=== PATIENT | female | born 1940 | race Caucasian/White ===

== ENCOUNTER 2016-04-10 17:15 | Inpatient (IN) | payer OTHER, MEDICARE, MEDICAID ==
[~2016-04-10] VITALS: Ht 152.4 cm; Wt 96.3 kg
[2016-04-10 17:56] VITALS: BP 157/80; PULSE 80; RESP 20; TEMP 98.1; O2SAT 98
[2016-04-10 18:25] VITALS: BP 130/55; PULSE 69; RESP 22; O2SAT 97
[2016-04-10 18:27] LABS: AUTOMATED NEUTROPHIL # 8.2 TH/MM3 (1.8-7.7); BASOPHIL # 0.1 TH/MM3 (0-0.2); BASOPHIL % 0.7 % (0.0-2.0); EOSINOPHIL # 0.3 TH/MM3 (0-0.4); EOSINOPHIL % 2.9 % (0.0-4.0); HEMATOCRIT 33.9 % (35.0-46.0); HEMO FLAGS DIFF FINAL; LYMPH % 18.6 % (9.0-44.0); LYMPHOCYTE # 2.1 TH/MM3 (1.0-4.8); MEAN CELL VOLUME 84.2 FL (80.0-100.0); MEAN CORPUSCULAR HEMOGLOBIN 28.5 PG (27.0-34.0); MEAN CORPUSCULAR HGB CONC 33.8 % (32.0-36.0); MONO % 5.6 % (0.0-8.0); NEUT % 72.2 % (16.0-70.0); PLATELET COUNT 312 TH/MM3 (150-450); RED BLOOD COUNT 4.02 MIL/MM3 (4.00-5.30); RED CELL DISTRIBUTION WIDTH 15.8 % (11.6-17.2); WHITE BLOOD COUNT 11.3 TH/MM3 (4.0-11.0)
[2016-04-10 18:38] LABS: AMPHETAMINE, URINE NEG (NEG); BARBITURATES, URINE NEG (NEG); COCAINE, URINE NEG (NEG)
--- NOTE | 2016-04-10 18:39 | PD ---
HPI Chief Complaint: Psychiatric Symptoms Time Seen by Provider: 18:24 Travel History International Travel<30 days: No Contact w/Intl Traveler<30days: No Traveled to known affect area: No History of Present Illness HPI Patient is a 75-year-old female who presents to emergency room for psychiatric evaluation. Patient reports that her niece helps to care for her as well as her brother. Reports that her niece has been having a hard time taking care of both her brother as well as herself and suggested going to a retirement today. As per patient, she made a suicidal comment to her brother today as she does not want to go to a retirement. Pt reports that she made the suicidal comment but didn't mean it and reports that she would never hurt herself. Carter act initiated by [facility]. [facility] Past Medical History Diabetes: Yes Hypertension: Yes Past Surgical History Cholecystectomy: Yes Other Surgery: Yes (finger tip amputation) Social History Alcohol Use: No Tobacco Use: No (former smoker) Substance Use: No Allergies-Medications (Allergen,Severity, Reaction): Coded Allergies: Morphine (Verified Allergy, Intermediate, 04/10/16) Penicillin (Verified Allergy, Intermediate, HIVES, 04/10/16) Reported Meds & Prescriptions Reported Meds & Active Scripts Active Active Prescriptions or Reported Medications Unobtainable Review of Systems General / Constitutional: No: Fever Eyes: No: Visual changes HENT: No: Headaches Cardiovascular: No: Chest Pain or Discomfort Respiratory: No: Shortness of Breath Gastrointestinal: No: Abdominal Pain Genitourinary: No: Dysuria Musculoskeletal: No: Pain Skin: No Rash Neurologic: No: Weakness Psychiatric: Positive: Anxiety, Depression Endocrine: No: Polydipsia Hematologic/Lymphatic: No: Easy Bruising Physical Exam Narrative GENERAL: No acute distress, nontoxic SKIN: Warm and dry. HEAD: Atraumatic. Normocephalic. EYES: Pupils equal and round. No scleral icterus. No injection or drainage. ENT: No nasal bleeding or discharge. Mucous membranes pink and moist. NECK: Trachea midline. No JVD. CARDIOVASCULAR: Regular rate and rhythm. No murmur appreciated. RESPIRATORY: No accessory muscle use. Clear to auscultation. Breath sounds equal bilaterally. GASTROINTESTINAL: Abdomen soft, non-tender, nondistended. Hepatic and splenic margins not palpable. MUSCULOSKELETAL: No obvious deformities. No clubbing. No cyanosis. No edema. NEUROLOGICAL: Awake and alert. No obvious cranial nerve deficits. Motor grossly within normal limits. Normal speech. PSYCHIATRIC: Patient anxious, patient upset, patient crying on evaluation, denies SI or HI at this time Data Data Last Documented VS Vital Signs Date Time Temp Pulse Resp B/P Pulse Ox O2 Delivery O2 Flow Rate FiO2 04/10/16 18:25 73 22 04/10/16 18:25 130/55 97 Room Air 04/10/16 17:56 98.1 Orders Complete Blood Count With Diff (04/10/16 17:47) Comprehensive Metabolic Panel (04/10/16 17:47) Drug Screen, Random Urine (04/10/16 17:47) Alcohol (Ethanol) (04/10/16 17:47) Psych Screen (04/10/16 17:47) Labs Laboratory Tests Test 04/10/16 04/10/16 17:50 18:00 Urine Opiates Screen NEG Urine Barbiturates Screen NEG Urine Amphetamines Screen NEG Urine Benzodiazepines Screen NEG Urine Cocaine Screen NEG Urine Cannabinoids Screen NEG White Blood Count 11.3 TH/MM3 Red Blood Count 4.02 MIL/MM3 Hemoglobin 11.5 GM/DL Hematocrit 33.9 % Mean Corpuscular Volume 84.2 FL Mean Corpuscular Hemoglobin 28.5 PG Mean Corpuscular Hemoglobin 33.8 % Concent Red Cell Distribution Width 15.8 % Platelet Count 312 TH/MM3 Mean Platelet Volume 8.0 FL Neutrophils (%) (Auto) 72.2 % Lymphocytes (%) (Auto) 18.6 % Monocytes (%) (Auto) 5.6 % Eosinophils (%) (Auto) 2.9 % Basophils (%) (Auto) 0.7 % Neutrophils # (Auto) 8.2 TH/MM3 Lymphocytes # (Auto) 2.1 TH/MM3 Monocytes # (Auto) 0.6 TH/MM3 Eosinophils # (Auto) 0.3 TH/MM3 Basophils # (Auto) 0.1 TH/MM3 CBC Comment DIFF FINAL Differential Comment Sodium Level 138 MEQ/L Potassium Level 4.0 MEQ/L Chloride Level 102 MEQ/L Carbon Dioxide Level 29.3 MEQ/L Anion Gap 7 MEQ/L Blood Urea Nitrogen 18 MG/DL Creatinine 0.81 MG/DL Estimat Glomerular Filtration 69 ML/MIN Rate Random Glucose 215 MG/DL Calcium Level 8.9 MG/DL Total Bilirubin 0.5 MG/DL Aspartate Amino Transf 13 U/L (AST/SGOT) Alanine Aminotransferase 19 U/L (ALT/SGPT) Alkaline Phosphatase 115 U/L Total Protein 7.5 GM/DL Albumin 3.9 GM/DL Ethyl Alcohol Level LESS THAN 3 MG/DL MDM Medical Decision Making Medical Screen Exam Complete: Yes Emergency Medical Condition: Yes Interpretation(s) Vital Signs Date Time Temp Pulse Resp B/P Pulse Ox O2 Delivery O2 Flow Rate FiO2 04/10/16 18:25 73 22 04/10/16 18:25 69 22 130/55 97 Room Air 04/10/16 17:56 98.1 80 20 157/80 98 Differential Diagnosis Suicidal ideations, anxiety attack, depression Narrative Course 75-year-old female who presents to emergency room after Carter act initiated by [facility]. Psychiatric screening labs ordered, patient will require psychiatric evaluation Patient medically cleared for psychiatric evaluation Scripts Unable to Obtain Active Prescriptions or Reported Meds Danyell Momin DO Apr 10, 2016 18:39
[2016-04-10 18:48] LABS: ANION GAP 7 MEQ/L (5-15)
[2016-04-10 18:52] LABS: ALKALINE PHOSPHATASE 115 U/L (45-117); ALT (GPT) 19 U/L (10-53); AST (GOT) 13 U/L (15-37); BICARBONATE 29.3 MEQ/L (21.0-32.0); BLOOD UREA NITROGEN 18 MG/DL (7-18); CHLORIDE 102 MEQ/L (98-107); GLOMERULAR FILTRATION RATE 69 ML/MIN (>89); SODIUM (NA) 138 MEQ/L (136-145); TOTAL BILIRUBIN ADULT 0.5 MG/DL (0.2-1.0)
[2016-04-10] MEDS ORDERED: LORazepam 2 MG/ML VIAL IV PUSH ONE (19:30)
[2016-04-10 19:31] VITALS: BP 141/69; PULSE 81; RESP 18; O2SAT 99
[2016-04-10 21:22] VITALS: BP 158/70; PULSE 94; RESP 22; O2SAT 97
[2016-04-10] MEDS ORDERED: HYDR-3649 (21:41)
[2016-04-10] MEDS ORDERED: TRAZ50TA12 PO (21:41)
[2016-04-10] MEDS ORDERED: ATEN25TA PO (21:41)
[2016-04-10] MEDS ORDERED: FURO20TA PO (21:41)
[2016-04-10] MEDS ORDERED: GABA600T PO (21:41)
[2016-04-10] MEDS ORDERED: SERT-129 PO (21:41)
[2016-04-10] MEDS ORDERED: ATOR20TA15 PO (21:41)
[2016-04-10] MEDS ORDERED: LEVEMIR SQ (21:41)
[2016-04-10] MEDS ORDERED: LISI-515 PO (21:41)
[2016-04-10] MEDS ORDERED: PRAD150C PO (21:41)
[2016-04-10] MEDS ORDERED: HYDR-3516 PO (21:41)
[2016-04-10] MEDS ORDERED: ISOS30TA3 PO (21:41)
[2016-04-10] MEDS ORDERED: FENT25DI T-DERMAL (21:41)
[2016-04-10] MEDS ORDERED: PANT40TA3 PO (21:41)
[2016-04-10] MEDS ORDERED: CLON0.5T PO (21:41)
[2016-04-10] MEDS ORDERED: CLIN1CAP5 PO (21:41)
[2016-04-10] MEDS ORDERED: HUMA100I3 SQ (21:41)
[2016-04-10] MEDS ORDERED: ESCI10TA PO (21:41)
[2016-04-10] MEDS ORDERED: ACETAMINOPHEN/HYDROcodone 325 MG/5 MG TAB PO ONE (23:30)
[2016-04-11] MEDS ORDERED: traZODone HCL 50 MG TAB PO ONE (02:00)
[2016-04-11 02:26] VITALS: BP 166/73; PULSE 78; RESP 16; TEMP 98.1; O2SAT 95
[2016-04-11 04:54] VITALS: PULSE 76; RESP 16; O2SAT 95
[2016-04-11] MEDS ORDERED: GABAPENTIN 300 MG CAP PO STA (05:01)
[2016-04-11] MEDS ORDERED: clonazePAM 0.5 MG TAB PO ONE (05:15)
[2016-04-11 08:57] VITALS: BP 153/67; PULSE 76; RESP 16; O2SAT 100
--- NOTE | 2016-04-11 09:03 | HHI.HP ---
Provisional Diagnosis Admission Date [place] I. Adjustment disorder with mixed emotions and disturbance of conduct [place] II. Deferred [place] III. HTN, DM [place] IV. Family conflicts [place] V. 40 Certification of Person's Competence To Provide Express and Informed Consent I have personally examined Lolita Laboy , a person being served at [facility] on, Apr 11, 2016 08:45. Express and informed consent means consent voluntarily given in writing, by a competent person, after sufficient explanation and disclosure of the subject matter involved to enable the person to make a knowing and willful decision without any element of force, fraud, deceit, duress, or other form of constraint or coercion. This person is 18 years of age or older, is not now known to be incompetent to consent to treatment with a guardian advocate, and does not have a health care surrogate or proxy currently making medical treatment decisions. I have found this person to be one of the following: [] Competent to provide express and informed consent, as defined above, for voluntary admission to this facility and is competent to provide express and informed consent for treatment. He/she has the consistent capacity to make well reasoned, willful, and knowing decisions concerning his or her medical or mental health treatment. The person fully and consistently understands the purpose of the admission for examination/placement and is fully capable of personally exercising all rights assured under [place] [] Incompetent to provide express and informed consent to voluntary admission, and this is incompetent to provide express and informed consent to treatment. The person must be transferred to involuntary status and a petition for a guardian advocate filed with the Circuit Court. [X] Refusing to provide express and informed consent to voluntary admission but is competent to provide express and informed consent for treatment. The person must be discharged or transferred to involuntary status. Form shall be completed within 24 hours of a person's arrival at the receiving facility and filed in the clinical record of each person: 1. Admitted on a voluntary basis 2. Permitted to provide express and informed consent to his/her own treatment 3. Allowed to transfer from involuntary to voluntary status 4. Prior to permitting a person to consent to his or her own treatment after having been previously found incompetent to consent to treatment. History of Present Illness Capacity: Has Capacity HPI The patient is a 75-year-old woman, domiciled with her brother in [place], , without psychiatric history of anxiety and depression, 1 previous psychiatric hospitalization in [place], no previous suicide attempts, medical history of diabetes and hypertension, who presents to emergency room for psychiatric evaluation. As per ER notes: "Patient reports that her niece helps to care for her as well as her brother. Reports that her niece has been having a hard time taking care of both her brother as well as herself and suggested going to a correction today. As per patient, she made a suicidal comment to her brother today as she does not want to go to a correction. Pt reports that she made the suicidal comment but didn't mean it and reports that she would never hurt herself. Carter act initiated by [facility]". Chart was reviewed, no collateral information available at this moment , case was discussed with nurse in charge and ER staff, case was seen in the A Pod. On evaluation patient was found agitated, mood dysregulated, persistently crying, poorly cooperative, she is claiming to be discharged and sent back home. She says that she wants to go back home with her brother. She does not want to be in the hospital, she says that she doesn't want to be sent to a correction. Patient states repetitively that if is no discharge is going to kill herself and if she is sent to a correction she is going to hang herself. Patient reported that she is extremely depressed, she doesn't have any desire to live. Patient is oriented 3, but cognitive tests is limited due to lack of cooperation. As per conversation with nursing charge, the brother of the patient had a stroke and is hospitalized here in [place], and apparently doesn' t have a good prognosis. Her Niece brought the patient to the hospital because she is is spending most of her time taking care of her father and cannot take care of her. When she explained to the patient that she had to go to a correction the patient told her that she will kill herself if she does that. Review of Systems Constitutional: DENIES: Diaphoretic episodes, Fatigue, Fever, Weight gain, Weight loss, Chills, Dizziness, Change in appetite, Night Sweats Endocrine: DENIES: Abnorml menstrual pattern, Heat/cold intolerance, Polydipsia , Polyuria, Polyphagia Respiratory: DENIES: Apneas, Cough, Snoring, Wheezing, Hemoptysis, Sputum production, Shortness of breath Cardiovascular: DENIES: Chest pain, Palpitations, Syncope, Dyspnea on Exertion , PND, Lower Extremity Edema, Orthopnea, Claudication Gastrointestinal: DENIES: Abdominal pain, Black stools, Bloody stools, Constipation, Diarrhea, Nausea, Vomiting, Difficulty Swallowing, Anorexia Musculoskeletal: DENIES: Joint pain, Muscle aches, Stiffness, Joint Swelling, Back pain, Neck pain Integumentary: DENIES: Abnormal pigmentation, Pruritus, Rash, Nail changes, Breast masses, Breast skin changes, Nipple discharge Hematologic/lymphatic: DENIES: Bruising, Lymphadenopathy Immunologic/allergic: DENIES: Eczema, Urticaria Neurologic: DENIES: Abnormal gait, Headache, Localized weakness, Paresthesias, Seizures, Speech Problems, Tremor, Poor Balance Psychiatric: COMPLAINS OF: Depression, Suicidal Ideation Past Psych History Violence risk - self (6 mos) Elevated risk Substance Abuse History Drugs/Alcohol past 12 months Patient denies the use of alcohol and drugs Past Family Social History Coded Allergies: Morphine (Verified Allergy, Intermediate, 04/10/16) Penicillin (Verified Allergy, Intermediate, HIVES, 04/10/16) Reported Medications Fentanyl Patch 72 HR 25 Mcg/Hr Patch25 Mcg T-DERMAL Q72H #10 PATCH Ref 0 04/10/16 Insulin Lispro (Human) Inj (Humalog Kwikpen Pen Inj)300 Unit/3 Ml Pen10 Units SQ DIRECTED Ref 0 04/10/16 Insulin Detemir Inj (Levemir Inj)1,000 unit/ 10 ML Vial30 Units SQ HS Ref 0 Do not mix with any other Insulin. 04/10/16 Atenolol 25 Mg Tab25 Mg PO DAILY #30 TAB 04/10/16 Clindamycin 150 Mg [id number] Mg PO TID Ref 0 04/10/16 Hydrocodone-Acetaminophen 5-325 mg Tab1 Tab PO Q12HR PRN (PAIN) #30 TAB Ref 0 04/10/16 Hydrocodone-Acetaminophen (Hydrocodone-AC)2.5-325 Mg Tab5 04/10/16 Escitalopram 10 Mg Tab10 Mg PO DAILY #30 TAB Ref 0 04/10/16 Trazodone 50 Mg Tab50 Mg PO HS #30 TAB Ref 0 04/10/16 Clonazepam 0.5 Mg Tab0.5 Mg PO TID #90 TAB Ref 0 04/10/16 Gabapentin 600 Mg [id number] Mg PO HS #30 TAB Ref 0 04/10/16 Atorvastatin 20 Mg Tab20 Mg PO HS #30 TAB Ref 0 04/10/16 Lisinopril 20 Mg Tab20 Mg PO DAILY #30 TAB Ref 0 04/10/16 Furosemide 20 Mg Tab20 Mg PO DAILY #30 TAB Ref 0 04/10/16 Isosorbide Mononitrate ER 30 Mg Taber30 Mg PO DAILY #30 TAB Ref 0 04/10/16 Dabigatran (Pradaxa)150 Mg [id number] Mg PO DAILY #60 CAP Ref 0 04/10/16 Pantoprazole 40 Mg Tab40 Mg PO DAILY #30 TAB Ref 0 04/10/16 Sertraline 100 Mg [id number] Mg PO DAILY #30 TAB Ref 0 04/10/16 Family History Patient denies family psychiatric history Social History Patient was born and raised in [place], she has been living in [place] for about 5 months, she lives with her brother in [place], she is , her highest level of education is high school Physical Exam Vital Signs Vital Signs Date Time Temp Pulse Resp B/P Pulse Ox O2 Delivery O2 Flow Rate FiO2 04/11/16 04:54 76 16 95 Room Air 04/11/16 02:26 98.1 166/73 Mental Status Examination Speech: Hesitant Orientation: x3 Memory: Unremarkable Thought Process: Logical, Goal Directed, Linear Thought Content: Unremarkable Hallucination Type: None Attention and Concentration: Abnormal Suicidal Ideation: Yes Previous Suicide Attempts: No Homicidal Ideation: No Previous Homicide Attempts: No Insight: Poor Judgement: Poor Affect: Irritable, Sad Mood: Sad Motor Activity: Normal gait Assessment & Plan Problem List: (1) Adjustment disorder with mixed anxiety and depressed mood Assessment & Plan: The patient is a 75 years old woman with psychiatric history of anxiety and depression, 1 previous hospitalization in [place], no previous suicidal attempts On psychiatric evaluation the patient presents severe mood dysregulation, agitation, disorganized behavior and thoughts, perseverant thoughts, hopelessness, helplessness, suicidal ideation with a plan of hanging herself or overdosing in the context of family conflicts, acute stroke of her brother, and no wanting to go to a correction. No gross impairment in cognition observed during this evaluation. Patient had to be medicated in they are to be calmed down No collateral information is available at this moment, patient is not cooperating a lot with the psychiatric ekg manager No protective factors are identified at this moment, and many elevated risk factors of suicidality are present For the safety of the patient and for stabilization of her mood and behavior, she needs to be hospitalized to psychiatry touch up worker intervention for collateral information and discharge coordination is needed Will medicated with Ativan 2 mg IM to help the patient to calm down and to transfer her to psychiatry Transfer to psychiatry once medically clear Brief supportive psychotherapy provided With place a consult for a psychiatric second opinion and also for hospitalist to manage her medical conditions. ICD Code: F43.23 Assessment & Plan Estimated LOS: days Olivier Dumont MD Apr 11, 2016 09:03
[2016-04-11] MEDS ORDERED: LORazepam 1 MG TAB PO PRN (09:15)
[2016-04-11] MEDS ORDERED: LORazepam 2 MG/ML VIAL IM PRN (09:15)
[2016-04-11] MEDS: ALUMINUM/MAGNESIUM/SIMETH 30 ML CUP PO PRN (09:28)
[2016-04-11] MEDS: LORazepam 2 MG/ML VIAL IM PRN (09:28)
[2016-04-11 10:20] VITALS: BP 165/81; PULSE 66; RESP 16; TEMP 97.2; O2SAT 94
[2016-04-11] MEDS: ACETAMINOPHEN 325 MG TAB PO PRN (12:16)
[2016-04-11] MEDS ORDERED: DEXTROSE 50% IN WATER 50 ML VIAL(D50) IV PUSH PRN (15:45)
[2016-04-11] MEDS ORDERED: GLUCAGON 1 MG/ML VIAL OTHER PRN (15:45)
--- NOTE | 2016-04-11 15:49 | PD.CONS ---
HPI Service [facility] Consult Requested By Dr. Brice Reason for Consult Assistance with management of hypertension and diabetes mellitus Primary Care Physician Unknown Diagnoses: History of Present Illness This a 75-year-old female patient with past medical history which includes hypertension, diabetes mellitus insulin-dependent, GERD and prior cardiac arrhythmia requiring pacemaker placement. Patient is currently alert and oriented to person place year, unable to tell month per day. Patient is a poor historian. Information gathered from patient as well as prior computerized charting. Patient is currently inpatient psychiatric center we've been consulted for assistance with diabetes and hypertension. Patient reports she feels fatigued and worried regarding her future living arrangements. There was some talk of this possibly going to a correction facility which seems to have exacerbated psychiatric symptoms. Patient denies increased shortness of breath, chest pain, nausea, vomiting, diarrhea, constipation, fever, chills. Review of Systems Constitutional: COMPLAINS OF: Fatigue, DENIES: Fever, Chills Respiratory: DENIES: Shortness of breath Cardiovascular: DENIES: Chest pain Other All other systems reviewed and negative except as mentioned above and in history of present illness Past Family Social History Allergies: Coded Allergies: Morphine (Verified Allergy, Intermediate, 04/10/16) Penicillin (Verified Allergy, Intermediate, HIVES, 04/10/16) Past Medical History hypertension, diabetes mellitus insulin-dependent, GERD and prior cardiac arrhythmia requiring pacemaker placement Past Surgical History Cholecystectomy, pacemaker placement Reported Medications Fentanyl Patch 72 HR (Fentanyl) 25 Mcg/Hr Patch 25 Mcg T-DERMAL Q72H Humalog Kwikpen Pen Inj (Insulin Lispro (Human) Inj) 300 Unit/3 Ml Pen 10 Units SQ DIRECTED Levemir Inj (Insulin Detemir) 1,000 unit/ 10 ML Vial 30 Units SQ HS Do not mix with any other Insulin. Atenolol 25 Mg Tab 25 Mg PO DAILY Clindamycin (Clindamycin HCl) 150 Mg Cap 150 Mg PO TID Hydrocodone-Acetaminophen 5-325 mg Tab 1 Tab PO Q12HR PRN Hydrocodone-AC (Hydrocodone-Acetaminophen) 2.5-325 Mg Tab 5 Escitalopram (Escitalopram Oxalate) 10 Mg Tab 10 Mg PO DAILY Trazodone (Trazodone HCl) 50 Mg Tab 50 Mg PO HS Clonazepam 0.5 Mg Tab 0.5 Mg PO TID Gabapentin 600 Mg Tab 600 Mg PO HS Atorvastatin (Atorvastatin Calcium) 20 Mg Tab 20 Mg PO HS Lisinopril 20 Mg Tab 20 Mg PO DAILY Furosemide 20 Mg Tab 20 Mg PO DAILY Isosorbide Mononitrate ER (Isosorbide Mononitrate) 30 Mg Daja 30 Mg PO DAILY Pradaxa (Dabigatran) 150 Mg Cap 150 Mg PO DAILY Pantoprazole (Pantoprazole Sodium) 40 Mg Tab 40 Mg PO DAILY Sertraline (Sertraline HCl) 100 Mg Tab 100 Mg PO DAILY Family History Aunt had diabetes Social History Patient denies EtOH use tobacco use or illicit drug use Physical Exam Vital Signs Vital Signs Date Time Temp Pulse Resp B/P Pulse Ox O2 Delivery O2 Flow Rate FiO2 04/11/16 10:20 97.2 66 16 165/81 94 04/11/16 08:57 76 16 153/67 100 Room Air 04/11/16 04:54 76 16 95 Room Air 04/11/16 02:26 98.1 78 16 166/73 95 Room Air 04/10/16 21:22 94 22 158/70 97 Room Air 04/10/16 19:31 81 18 141/69 99 Room Air 04/10/16 18:25 73 22 04/10/16 18:25 69 22 130/55 97 Room Air 04/10/16 17:56 98.1 80 20 157/80 98 Physical Exam GENERAL: This is a well-nourished, well-developed patient, in no apparent distress. Per RN has been tearful throughout the day SKIN: Abrasion/ulceration fourth digit on left toe and fourth and fifth digit right toe. HEAD: Atraumatic. Normocephalic. No temporal or scalp tenderness. EYES: Extraocular motions intact. No scleral icterus. No injection or drainage. ENT: Nose without bleeding, purulent drainage or septal hematoma. Throat without erythema, tonsillar hypertrophy or exudate. Uvula midline. Airway patent. NECK: Trachea midline. No JVD or lymphadenopathy. Supple, nontender, no meningeal signs. CARDIOVASCULAR: Regular rate and rhythm without murmurs, gallops, or rubs. RESPIRATORY: Clear to auscultation. Breath sounds equal bilaterally. No wheezes , rales, or rhonchi. GASTROINTESTINAL: Abdomen soft, non-tender, nondistended. No hepato-splenomegaly , or palpable masses. No guarding. MUSCULOSKELETAL: Extremities without clubbing, cyanosis, or edema. No joint tenderness, effusion, or edema noted. No calf tenderness. Negative Homans sign bilaterally. NEUROLOGICAL: Able to awake to voice. Oriented to person place year unable to provide correct month or day. No focal deficits noted Motor and sensory grossly within normal limits. 4 out of 5 muscle strength in all muscle groups. Normal speech. Laboratory Laboratory Tests Test 04/10/16 04/10/16 17:50 18:00 Urine Opiates Screen NEG Urine Barbiturates Screen NEG Urine Amphetamines Screen NEG Urine Benzodiazepines Screen NEG Urine Cocaine Screen NEG Urine Cannabinoids Screen NEG White Blood Count 11.3 Red Blood Count 4.02 Hemoglobin 11.5 Hematocrit 33.9 Mean Corpuscular Volume 84.2 Mean Corpuscular Hemoglobin 28.5 Mean Corpuscular Hemoglobin 33.8 Concent Red Cell Distribution Width 15.8 Platelet Count 312 Mean Platelet Volume 8.0 Neutrophils (%) (Auto) 72.2 Lymphocytes (%) (Auto) 18.6 Monocytes (%) (Auto) 5.6 Eosinophils (%) (Auto) 2.9 Basophils (%) (Auto) 0.7 Neutrophils # (Auto) 8.2 Lymphocytes # (Auto) 2.1 Monocytes # (Auto) 0.6 Eosinophils # (Auto) 0.3 Basophils # (Auto) 0.1 CBC Comment DIFF FINAL Differential Comment Sodium Level 138 Potassium Level 4.0 Chloride Level 102 Carbon Dioxide Level 29.3 Anion Gap 7 Blood Urea Nitrogen 18 Creatinine 0.81 Estimat Glomerular Filtration 69 Rate Random Glucose 215 Calcium Level 8.9 Total Bilirubin 0.5 Aspartate Amino Transf 13 (AST/SGOT) Alanine Aminotransferase 19 (ALT/SGPT) Alkaline Phosphatase 115 Total Protein 7.5 Albumin 3.9 Ethyl Alcohol Level LESS THAN 3 Result Diagram: 04/10/16 1800 04/10/16 1800 Assessment and Plan Assessment and Plan Pleasant 75-year-old female patient currently inpatient psychiatric center we have been consulted for assistance with hypertension and diabetes mellitus. Patient is on Pradaxa reports some kind of heart rhythm problem in the past requiring pacemaker placement question atrial fibrillation. Hypertension resume patient's lisinopril as well as atenolol Monitor vital signs per protocol Diabetes mellitus. Patient takes 30 units Levemir daily at home will continue Accu-Cheks before meals at bedtime with sliding scale insulin coverage Diabetic diet Question atrial fibrillation history of cardiac arrhythmia requiring pacemaker on Pradaxa at home Will continue Pradaxa Abrasion/ulceration left foot fourth digit and right foot fourth and fifth digit RN present in room request to keep areas protected with diabetic shoes if possible Minimum nonskid socks Bactroban daily to prevent infection DVT prophylaxis patient is ambulatory encouraged her to use her walker for ambulation Plan of care discussed with patient RN Written by Roberta Medina, acting as scribe for Dr. Morales on 04/11/16 at 15:48. The documentation accurately reflects the work performed [id number] by me on 04/11/16 at 15:48. Roberta Medina Apr 11, 2016 15:49 Leni Morales MD Apr 12, 2016 15:39
[2016-04-11] MEDS: INSULIN ASPART SUPPLEMENTAL SCALE SQ SCH ×2 (17:00→20:30)
[2016-04-11] MEDS: ATENOLOL 25 MG TAB PO SCH (17:01)
[2016-04-11] MEDS: LISINOPRIL 20 MG TAB PO SCH (17:01)
[2016-04-11] MEDS: MAGNESIUM HYDROXIDE SUSP 30 ML CUP PO PRN (18:29)
[2016-04-11 18:47] VITALS: BP 128/84; PULSE 86; RESP 18; TEMP 98.6
[2016-04-11] MEDS: ATORVASTATIN 20 MG TAB PO SCH (20:28)
[2016-04-11] MEDS: GABAPENTIN 300 MG CAP PO SCH (20:28)
[2016-04-11] MEDS: INSULIN DETEMIR 100 UNITS/ML VIAL SQ SCH (20:29)
[2016-04-11] MEDS: LORazepam 0.5 MG TAB PO PRN ×2 (23:24→23:31)
[2016-04-12 04:58] VITALS: BP 158/60; PULSE 67; RESP 18; TEMP 97.9; O2SAT 98
[2016-04-12] MEDS: INSULIN ASPART SUPPLEMENTAL SCALE SQ SCH ×4 (06:18→20:39)
[2016-04-12] MEDS: MAGNESIUM HYDROXIDE SUSP 30 ML CUP PO PRN (06:32)
[2016-04-12] MEDS: LISINOPRIL 20 MG TAB PO SCH (09:21)
[2016-04-12] MEDS: ISOSORBIDE MONONITRATE 30 MG TAB PO SCH (09:21)
[2016-04-12] MEDS: FUROSEMIDE 20 MG TAB PO SCH (09:21)
[2016-04-12] MEDS: PANTOPRAZOLE SOD 40 MG DELAYED RELEASE TAB PO SCH (09:21)
[2016-04-12] MEDS: ATENOLOL 25 MG TAB PO SCH (09:21)
[2016-04-12] MEDS: DABIGATRAN ETEXILATE 150 MG CAP PO SCH (09:21)
--- NOTE | 2016-04-12 11:31 | HHI.PYPN ---
Subjective Remarks Patient seen in day room today with nurse Alysha, continues depressed somewhat labile and anxious, she is concerned about her brother with whom she lives. She also lives with her niece. While she denies suicidality at this time she is still quite upset depressed over the suggestion by her family that she go to a detention. Will add Lexapro 10 mg in a.m. to patient's regimen need to arrange a family meeting to discuss placement issues in the home. Perhaps at my treatment team on 04/15 Upon this patient's admission Dr. Pitt did a first opinion petition supporting [employer] act. After my assessment of patient (see above), I agree patient meets criteria for involuntary psychiatric hospitalization under the [employer] act. [facility] second opinion petition supporting [employer] act Review of Systems Other No change since 04/11 Objective Alert: Yes [place]: Person, Place, Date Mood: Anxious, Depressed Affect: Labile, Restricted Memory Intact: Comment (fair) Hallucinations: Other (denies) Delusions: No Delusion Type: Other (vigilant) Suicidal: Ideation (denies at this time) Homicidal: Ideation (denies) Insight/Judgement Poor Vitals/IOs Vital Signs Date Time Temp Pulse Resp B/P Pulse Ox O2 Delivery O2 Flow Rate FiO2 04/12/16 04:58 97.9 67 18 158/60 98 04/11/16 08:57 Room Air Intake and Output 04/11/16 04/11/16 04/12/16 08:00 16:00 00:00 Intake Total 1440 ml 360 ml Balance 1440 ml 360 ml Assessment & Plan Problem List: (1) Adjustment disorder with mixed anxiety and depressed mood ICD Code: F43.23 Assessment & Plan Estimated LOS: days patient remains depressed and anxious, compliant medications, but this time I concur with Dr. Pitt patient meets criteria for involuntary psychiatric hospitalization. Will add Lexapro 10 mg daily to medication regimen. Will attempt to reach patient's family to discuss placement issues Justification for Cont. Inpt. At this time the patient was her serum verily decompensate at a lower level of care on less restrictive setting Discharge Planning To be determined Request HC Surrog/Guard Advoc?: No Felipe Ro MD Apr 12, 2016 11:31
--- NOTE | 2016-04-12 15:55 | HHI.PR ---
Subjective Remarks Follow for hypertension No overnight events, no chest pain or shortness of breath. No palpitations. Wants to go home. Anxious Objective Vitals Vital Signs Date Time Temp Pulse Resp B/P Pulse Ox O2 Delivery O2 Flow Rate FiO2 04/12/16 04:58 97.9 67 18 158/60 98 04/11/16 18:47 98.6 86 18 128/84 I/O 04/11/16 04/11/16 04/11/16 04/12/16 04/12/16 04/12/16 07:00 15:00 23:00 07:00 15:00 23:00 Intake Total 480 ml 1320 ml 0 ml 840 ml Balance 480 ml 1320 ml 0 ml 840 ml Intake Oral 480 ml 1320 ml 0 ml 840 ml # Voids 2 3 2 2 # Bowel Movements 0 Result Diagram: 04/10/16 1800 04/10/16 1800 Objective Remarks Not in distress, well-nourished, looks stated age PERRL, pink conjunctiva without injection, anicteric Nose without bleeding, airway patent, oropharynx clear Supple neck, no masses or thyromegaly, trachea midline Normal rate and regular rhythm, no murmurs gallops or rubs appreciated. Clear to auscultation and symmetric bilaterally, normal respiratory effort. Normal bowel sounds, soft, non-tender, nondistended, no guarding. Extremities without clubbing, cyanosis, or edema. No rash of generalized distribution. Skin is warm and dry. AAO x3, no cranial nerve deficits, moves all 4 extremities, no focal neurologic deficits Normal mood, appropriate affect A/P Assessment and Plan Pleasant 75-year-old female patient currently inpatient psychiatric center we have been consulted for assistance with hypertension and diabetes mellitus. Patient is on Pradaxa reports some kind of heart rhythm problem in the past requiring pacemaker placement question atrial fibrillation. Hypertension-continue lisinopril as well as atenolol, start clonidine as needed. Monitor vital signs per protocol Diabetes mellitus. Patient takes 30 units Levemir daily at home will continue Accu-Cheks before meals at bedtime with sliding scale insulin coverage Diabetic diet Question atrial fibrillation history of cardiac arrhythmia requiring pacemaker on Pradaxa at home Will continue Pradaxa Abrasion/ulceration left foot fourth digit and right foot fourth and fifth digit RN present in room request to keep areas protected with diabetic shoes if possible Minimum nonskid socks Bactroban daily to prevent infection DVT prophylaxis patient is ambulatory encouraged her to use her walker for ambulation Patient stable for discharge medically. We will sign off. Please call with questions. Leni Morales MD Apr 12, 2016 15:55
[2016-04-12] MEDS: ACETAMINOPHEN 325 MG TAB PO PRN ×2 (18:07→22:35)
[2016-04-12 19:12] VITALS: BP 175/75; PULSE 80; RESP 18; TEMP 98.5; O2SAT 100
[2016-04-12] MEDS: LORazepam 0.5 MG TAB PO PRN (20:34)
[2016-04-12] MEDS: ATORVASTATIN 20 MG TAB PO SCH (20:34)
[2016-04-12] MEDS: GABAPENTIN 300 MG CAP PO SCH (20:35)
[2016-04-12] MEDS: INSULIN DETEMIR 100 UNITS/ML VIAL SQ SCH (20:35)
[2016-04-13] MEDS: ACETAMINOPHEN 325 MG TAB PO PRN ×3 (02:27→14:34)
[2016-04-13] MEDS: cloNIDine HCL 0.1 MG TAB PO PRN ×2 (06:01→12:26)
[2016-04-13] MEDS: INSULIN ASPART SUPPLEMENTAL SCALE SQ SCH ×4 (06:02→19:57)
[2016-04-13 06:23] VITALS: BP 185/83; PULSE 85; RESP 18; TEMP 98.2; O2SAT 99
[2016-04-13] MEDS: ISOSORBIDE MONONITRATE 30 MG TAB PO SCH (09:32)
[2016-04-13] MEDS: PANTOPRAZOLE SOD 40 MG DELAYED RELEASE TAB PO SCH (09:32)
[2016-04-13] MEDS: ATENOLOL 25 MG TAB PO SCH (09:32)
[2016-04-13] MEDS: LISINOPRIL 20 MG TAB PO SCH ×2 (09:33→20:37)
[2016-04-13] MEDS: DABIGATRAN ETEXILATE 150 MG CAP PO SCH (09:33)
[2016-04-13] MEDS: FUROSEMIDE 20 MG TAB PO SCH (09:33)
[2016-04-13 10:44] VITALS: BP 184/76; PULSE 79; RESP 18; O2SAT 98
--- NOTE | 2016-04-13 12:26 | HHI.PYPN ---
Subjective Remarks Patient was seen and case discussed with nursing. Patient is pleasant and cooperative. She minimizes reasons for admission and declines having suicidal thoughts. She is upset about her brother and is perseverative on leaving before the holidays. Behaving well on the unit. Today she denies suicidal ideations thought or plan. Blood pressures have been elevated Objective Alert: Yes [place]: Person, Place, Date Mood: Anxious, Depressed Affect: Labile, Restricted Memory Intact: Comment (fair) Hallucinations: Other (denies) Delusions: No Delusion Type: Other (vigilant) Suicidal: Ideation (denies at this time) Homicidal: Ideation (denies) Insight/Judgement Poor Vitals/IOs Vital Signs Date Time Temp Pulse Resp B/P Pulse Ox O2 Delivery O2 Flow Rate FiO2 04/13/16 10:44 79 18 184/76 98 04/13/16 06:23 98.2 04/11/16 08:57 Room Air Intake and Output 04/12/16 04/12/16 04/13/16 08:00 16:00 00:00 Intake Total 0 ml 840 ml 720 ml Balance 0 ml 840 ml 720 ml Assessment & Plan Problem List: (1) Adjustment disorder with mixed anxiety and depressed mood ICD Code: F43.23 Assessment & Plan Reconsult medicine for medication adjustment. Justification for Cont. Inpt. Patient will decompensate in a less restrictive setting Request HC Surrog/Guard Advoc?: No Julien Lorenzo DO Apr 13, 2016 12:26
[2016-04-13 14:46] VITALS: BP 144/65; PULSE 85; RESP 18
[2016-04-13 18:00] VITALS: BP 143/68; PULSE 77; RESP 20; TEMP 98.2; O2SAT 100
[2016-04-13] MEDS: INSULIN DETEMIR 100 UNITS/ML VIAL SQ SCH (20:28)
[2016-04-13] MEDS: ACETAMINOPHEN/HYDROcodone 325 MG/5 MG TAB PO PRN (20:38)
[2016-04-13] MEDS: GABAPENTIN 300 MG CAP PO SCH (20:39)
[2016-04-13] MEDS: ATORVASTATIN 20 MG TAB PO SCH (20:39)
[2016-04-13] MEDS: LORazepam 2 MG/ML VIAL IM PRN (23:45)
[2016-04-14] MEDS: ACETAMINOPHEN/HYDROcodone 325 MG/5 MG TAB PO PRN ×4 (02:20→20:58)
[2016-04-14] MEDS: INSULIN ASPART SUPPLEMENTAL SCALE SQ SCH ×4 (05:56→20:47)
[2016-04-14 06:08] VITALS: BP 162/67; PULSE 74; RESP 17; TEMP 96.9; O2SAT 99
[2016-04-14] MEDS: LISINOPRIL 20 MG TAB PO SCH ×2 (08:38→20:48)
[2016-04-14] MEDS: PANTOPRAZOLE SOD 40 MG DELAYED RELEASE TAB PO SCH (08:38)
[2016-04-14] MEDS: DABIGATRAN ETEXILATE 150 MG CAP PO SCH (08:38)
[2016-04-14] MEDS: ATENOLOL 25 MG TAB PO SCH (08:38)
[2016-04-14] MEDS: ISOSORBIDE MONONITRATE 30 MG TAB PO SCH (08:39)
[2016-04-14] MEDS: FUROSEMIDE 20 MG TAB PO SCH (08:39)
[2016-04-14 09:36] VITALS: BP 134/62; PULSE 71; RESP 17
--- NOTE | 2016-04-14 09:58 | HHI.PR ---
Subjective Remarks Follow for hypertension BP remains elevated running 140's/60's to 180's/ 80's- patient denies headache or visual changes no chest pain or shortness of breath. No palpitations. Objective Vitals Vital Signs Date Time Temp Pulse Resp B/P Pulse Ox O2 Delivery O2 Flow Rate FiO2 04/14/16 09:36 71 17 134/62 04/14/16 06:08 96.9 74 17 162/67 99 04/13/16 18:00 98.2 77 20 143/68 100 04/13/16 14:46 85 18 144/65 04/13/16 10:44 79 18 184/76 98 I/O 04/13/16 04/13/16 04/13/16 04/14/16 04/14/16 04/14/16 06:59 14:59 22:59 06:59 14:59 22:59 Intake Total 360 ml 1200 ml 300 ml Balance 360 ml 1200 ml 300 ml Intake Oral 360 ml 1200 ml 300 ml # Voids 2 2 2 1 Result Diagram: 04/10/16 1800 04/10/16 1800 Objective Remarks Not in distress, well-nourished, looks stated age EOMI, pink conjunctiva without injection, anicteric Nose without bleeding, airway patent, oropharynx clear Supple neck, no masses or thyromegaly, trachea midline Normal rate and regular rhythm, no murmurs gallops or rubs appreciated. Clear to auscultation and symmetric bilaterally, normal respiratory effort. Normal bowel sounds, soft, non-tender, nondistended, no guarding. Extremities without clubbing, cyanosis, or edema. No rash of generalized distribution. Skin is warm and dry. AAO x3, no cranial nerve deficits, moves all 4 extremities, no focal neurologic deficits A/P Assessment and Plan Pleasant 75-year-old female patient currently inpatient psychiatric center we have been consulted for assistance with hypertension and diabetes mellitus. Patient is on Pradaxa reports some kind of heart rhythm problem in the past requiring pacemaker placement question atrial fibrillation. Hypertension-increase lisinopril to 20mg BID, continue atenolol and clonidine as needed. Monitor vital signs per protocol Diabetes mellitus. Patient takes 30 units Levemir daily at home will continue Accu-Cheks before meals at bedtime with sliding scale insulin coverage Diabetic diet Question atrial fibrillation history of cardiac arrhythmia requiring pacemaker on Pradaxa at home Will continue Pradaxa Abrasion/ulceration left foot fourth digit and right foot fourth and fifth digit RN present in room request to keep areas protected with diabetic shoes if possible Minimum nonskid socks Bactroban daily to prevent infection DVT prophylaxis patient is ambulatory encouraged her to use her walker for ambulation Discussed with patient, RN and Roberta Mark Apr 14, 2016 09:58
--- NOTE | 2016-04-14 12:13 | HHI.PYPN ---
Subjective Remarks Patient was seen and case discussed with nursing. Patient had a minor panic attack last evening per nursing. Today she is perseverant on discharge. She is asking to see her brother who is here in the medical floor nursing will try to arrange a phone call. She continues to deny depressed mood or suicidal ideations thought intent or plan Objective Alert: Yes [place]: Person, Place, Date Mood: Anxious, Depressed Affect: Labile, Restricted Memory Intact: Comment (fair) Hallucinations: Other (denies) Delusions: No Delusion Type: Other (vigilant) Suicidal: Ideation (denies at this time) Homicidal: Ideation (denies) Insight/Judgement Poor Vitals/IOs Vital Signs Date Time Temp Pulse Resp B/P Pulse Ox O2 Delivery O2 Flow Rate FiO2 04/14/16 09:36 71 17 134/62 04/14/16 06:08 96.9 99 04/11/16 08:57 Room Air Intake and Output 04/13/16 04/13/16 04/14/16 08:00 16:00 00:00 Intake Total 360 ml 1200 ml 300 ml Balance 360 ml 1200 ml 300 ml Assessment & Plan Problem List: (1) Adjustment disorder with mixed anxiety and depressed mood ICD Code: F43.23 Assessment & Plan Continue current treatment plan Justification for Cont. Inpt. Patient would decompensate in a less restrictive setting Request HC Surrog/Guard Advoc?: No Julien Lorenzo DO Apr 14, 2016 12:13
[2016-04-14 17:48] VITALS: BP 118/53; PULSE 68; RESP 17; TEMP 98.3; O2SAT 100
[2016-04-14] MEDS: ATORVASTATIN 20 MG TAB PO SCH (20:48)
[2016-04-14] MEDS: INSULIN DETEMIR 100 UNITS/ML VIAL SQ SCH (20:48)
[2016-04-14] MEDS: GABAPENTIN 300 MG CAP PO SCH (20:48)
[2016-04-14] MEDS: LORazepam 2 MG/ML VIAL IM PRN (22:28)
[2016-04-15] VITALS (9 sets, daily range): BP systolic 98–180; BP diastolic 49–89; PULSE 60–87; RESP 16–20; TEMP 97.1–98.4; O2SAT 94–99
[2016-04-15] MEDS: ACETAMINOPHEN/HYDROcodone 325 MG/5 MG TAB PO PRN ×3 (01:40→14:47)
[2016-04-15] MEDS: INSULIN ASPART SUPPLEMENTAL SCALE SQ SCH ×4 (07:00→21:56)
--- NOTE | 2016-04-15 09:27 | RADRPT ---
EXAM DATE/TIME: 04/15/2016 09:15 [place] COMPARISON: No previous studies available for comparison. INDICATIONS : Right hip pain; fell this morning. MEDICAL HISTORY : None. SURGICAL HISTORY : None. ENCOUNTER: Initial ACUITY: 1 day PAIN SCORE: 9/10 LOCATION: Right hip FINDINGS: Extensive vascular calcifications are noted. Fracture is not appreciated. CONCLUSION: Osteopenia, negative for fracture. CT scanning would be more sensitive the patient remains symptomat ic Dhiraj Jose MD FACR on April 15, 2016 at 9:24 Board Certified Radiologist. This report was verified electronically.
[2016-04-15] MEDS: ATENOLOL 25 MG TAB PO SCH (10:43)
[2016-04-15] MEDS: FUROSEMIDE 20 MG TAB PO SCH (10:43)
[2016-04-15] MEDS: DABIGATRAN ETEXILATE 150 MG CAP PO SCH (10:43)
[2016-04-15] MEDS: ISOSORBIDE MONONITRATE 30 MG TAB PO SCH (10:43)
[2016-04-15] MEDS: LISINOPRIL 20 MG TAB PO SCH ×2 (10:43→21:55)
[2016-04-15] MEDS: PANTOPRAZOLE SOD 40 MG DELAYED RELEASE TAB PO SCH (10:43)
--- NOTE | 2016-04-15 12:15 | HHI.PYPN ---
Subjective Remarks Patient discussed with treatment team, chart reviewed, patient seen on unit. Patient continues somewhat anxious of focusing towards discharge the no behavioral problems, compliant medications. For now continue treatment Review of Systems Other No change since 04/11 Objective Alert: Yes [place]: Person, Place, Date Mood: Anxious, Depressed Affect: Labile, Restricted Memory Intact: Comment (fair) Hallucinations: Other (denies) Delusions: No Delusion Type: Other (vigilant) Suicidal: Ideation (denies at this time) Homicidal: Ideation (denies) Insight/Judgement Very poor Vitals/IOs Vital Signs Date Time Temp Pulse Resp B/P Pulse Ox O2 Delivery O2 Flow Rate FiO2 04/15/16 11:20 97.4 70 20 156/71 98 04/11/16 08:57 Room Air Assessment & Plan Problem List: (1) Adjustment disorder with mixed anxiety and depressed mood ICD Code: F43.23 Assessment & Plan Estimated LOS: days patient continues depressed and anxious, but compliant medications Justification for Cont. Inpt. At this time the patient would decompensated a lower level of care Discharge Planning To be determined Request HC Surrog/Guard Advoc?: Felipe Kang MD Apr 15, 2016 12:15
[2016-04-15] MEDS: LORazepam 0.5 MG TAB PO PRN (14:31)
[2016-04-15] MEDS: MAGNESIUM HYDROXIDE SUSP 30 ML CUP PO PRN (14:39)
--- NOTE | 2016-04-15 16:46 | HHI.PR ---
Subjective Remarks Follow for hypertension Patient to have hypotensive episode 98/49 this a.m. approximately 550AM Patient also had fallen approximately 0820 in a.m. reports landing on her right side. Patient reports she did not hit her head did not lose consciousness. Visual changes or headache this time. Patient with bilateral lower extremity pain she describes pain that starts in her lower back and radiates down the back side of her legs to the ankle area patient does have a history of sciatic nerve pain and this is consistent with her previous chronic pain. no chest pain or shortness of breath. No palpitations. Objective Vitals Vital Signs Date Time Temp Pulse Resp B/P Pulse Ox O2 Delivery O2 Flow Rate FiO2 04/15/16 15:20 97.9 78 18 130/58 94 04/15/16 11:20 97.4 70 20 156/71 98 04/15/16 10:20 97.7 66 20 157/89 98 04/15/16 09:20 97.4 73 20 153/65 98 04/15/16 08:30 97.6 74 20 165/70 96 04/15/16 05:50 97.5 60 16 98/49 98 04/14/16 17:48 98.3 68 17 118/53 100 I/O 04/14/16 04/14/16 04/14/16 04/15/16 04/15/16 04/15/16 07:00 15:00 23:00 07:00 15:00 23:00 Intake Total 60 ml 1320 ml Balance 60 ml 1320 ml Intake Oral 60 ml 1320 ml # Voids 1 1 2 Imaging Last Impressions Hip and Pelvis X-Ray 04/15/16 0000 Signed Impressions: Service Date/Time: Friday, April 15, 2016 09:15 - CONCLUSION: Osteopenia, negative for fracture. CT scanning would be more sensitive the patient remains symptomatic Dhiraj Jose MD FACR Objective Remarks Not in distress, well-nourished, looks stated age EOMI, pink conjunctiva without injection, anicteric Nose without bleeding, airway patent, oropharynx clear Supple neck, no masses or thyromegaly, trachea midline Normal rate and regular rhythm, no murmurs gallops or rubs appreciated. Clear to auscultation and symmetric bilaterally, normal respiratory effort. Normal bowel sounds, soft, non-tender, nondistended, no guarding. Extremities without clubbing, cyanosis, or edema. No rash of generalized distribution. Skin is warm and dry. Awake and alert, moves all 4 extremities, no focal neurologic deficits A/P Assessment and Plan Pleasant 75-year-old female patient currently inpatient psychiatric center we have been consulted for assistance with hypertension and diabetes mellitus. Patient is on Pradaxa reports some kind of heart rhythm problem in the past requiring pacemaker placement question atrial fibrillation. Continue lisinopril to 20mg BID atenolol and clonidine as needed. Monitor vital signs per protocol Patient did have isolated hypotension 98/49 approximately 5:50 AM Other blood pressures remain in the 150/70-80 range do not want to lower her blood pressure anymore this patient has had a recent fall, will check for orthostatic hypotension Fall Right hip pelvic and x-ray reviewed by myself as well as Dr. Morales no acute fracture identified Patient is ambulatory with walker after fall encouraged patient to use walker for ambulation and change position slowly orthostatic vital signs Diabetes mellitus. Patient takes 30 units Levemir daily at home will continue Accu-Cheks before meals at bedtime with sliding scale insulin coverage Diabetic diet Question atrial fibrillation history of cardiac arrhythmia requiring pacemaker on Pradaxa at home Will continue Pradaxa Abrasion/ulceration left foot fourth digit and right foot fourth and fifth digit RN present in room request to keep areas protected with diabetic shoes if possible Minimum nonskid socks Bactroban daily to prevent infection DVT prophylaxis patient is ambulatory encouraged her to use her walker for ambulation Discussed with patient and RN Written by Roberta Medina, acting as scribe for Dr. Morales on 04/15/16 at 16:46. The documentation accurately reflects the work performed [id number] by me on 04/15/16 at 16:46 Roberta Medina Apr 15, 2016 16:46 Leni Morales MD Apr 15, 2016 23:46
[2016-04-15] MEDS: GABAPENTIN 300 MG CAP PO SCH (21:55)
[2016-04-15] MEDS: INSULIN DETEMIR 100 UNITS/ML VIAL SQ SCH (21:55)
[2016-04-15] MEDS: ATORVASTATIN 20 MG TAB PO SCH (21:55)
[2016-04-16] MEDS: LORazepam 2 MG/ML VIAL IM PRN (00:28)
[2016-04-16 05:49] VITALS: BP 130/59; PULSE 84; RESP 16; TEMP 98.4; O2SAT 98
[2016-04-16] MEDS: ACETAMINOPHEN/HYDROcodone 325 MG/10 MG TAB PO PRN ×4 (06:35→23:54)
[2016-04-16] MEDS: ALUMINUM/MAGNESIUM/SIMETH 30 ML CUP PO PRN (06:47)
[2016-04-16] MEDS: INSULIN ASPART SUPPLEMENTAL SCALE SQ SCH ×4 (06:47→21:11)
[2016-04-16 08:46] VITALS: BP 128/60
[2016-04-16 08:47] VITALS: BP 137/67
[2016-04-16 08:48] VITALS: BP 136/61
[2016-04-16 09:33] VITALS: BP 137/67; PULSE 71; RESP 18; TEMP 97.6
[2016-04-16] MEDS: FUROSEMIDE 20 MG TAB PO SCH (10:22)
[2016-04-16] MEDS: DABIGATRAN ETEXILATE 150 MG CAP PO SCH (10:22)
[2016-04-16] MEDS: LISINOPRIL 20 MG TAB PO SCH ×2 (10:23→21:10)
[2016-04-16] MEDS: PANTOPRAZOLE SOD 40 MG DELAYED RELEASE TAB PO SCH (10:23)
[2016-04-16] MEDS: ATENOLOL 25 MG TAB PO SCH (10:23)
[2016-04-16] MEDS: ISOSORBIDE MONONITRATE 30 MG TAB PO SCH (10:25)
[2016-04-16] MEDS ORDERED: PRAD150C PO (12:07)
[2016-04-16] MEDS ORDERED: LIPI20TA PO (12:07)
[2016-04-16] MEDS ORDERED: FURO20TA PO (12:07)
[2016-04-16] MEDS ORDERED: LISI-515 PO (12:07)
[2016-04-16] MEDS ORDERED: PANT40TA3 PO (12:07)
[2016-04-16] MEDS ORDERED: ATEN25TA PO (12:07)
[2016-04-16] MEDS ORDERED: LEVEMIR SQ (12:07)
[2016-04-16] MEDS ORDERED: ISOS30TA3 PO (12:07)
[2016-04-16] MEDS ORDERED: NEUR300C PO (12:07)
--- NOTE | 2016-04-16 12:15 | HHI.DS ---
Psychiatry Discharge Summary Inpatient Psychiatric care?: Yes Advance Directive: No Reason Not Provided: Due to Patient Condition Mental Health AdvanceDirective: No Health Care Proxy: No Admission Admission Date Apr 11, 2016 at 09:10 Admission Diagnosis: (1) Adjustment disorder with mixed anxiety and depressed mood ICD Code: F43.23 Brief History The patient is a 75-year-old woman, domiciled with her brother in [place], , without psychiatric history of anxiety and depression, 1 previous psychiatric hospitalization in [place], no previous suicide attempts, medical history of diabetes and hypertension, who presents to emergency room for psychiatric evaluation. As per ER notes: "Patient reports that her niece helps to care for her as well as her brother. Reports that her niece has been having a hard time taking care of both her brother as well as herself and suggested going to a care home today. As per patient, she made a suicidal comment to her brother today as she does not want to go to a care home. Pt reports that she made the suicidal comment but didn't mean it and reports that she would never hurt herself. [facility] act initiated by [facility]". Chart was reviewed, no collateral information available at this moment , case was discussed with nurse in charge and ER staff, case was seen in the A Pod. On evaluation patient was found agitated, mood dysregulated, persistently crying, poorly cooperative, she is claiming to be discharged and sent back home. She says that she wants to go back home with her brother. She does not want to be in the hospital, she says that she doesn't want to be sent to a care home. Patient states repetitively that if is no discharge is going to kill herself and if she is sent to a care home she is going to hang herself. Patient reported that she is extremely depressed, she doesn't have any desire to live. Patient is oriented 3, but cognitive tests is limited due to lack of cooperation. As per conversation with nursing charge, the brother of the patient had a stroke and is hospitalized here in [place], and apparently doesn' t have a good prognosis. Her Niece brought the patient to the hospital because she is is spending most of her time taking care of her father and cannot take care of her. When she explained to the patient that she had to go to a care home the patient told her that she will kill herself if she does that. Tobacco Use In Past 30 Days: No Tobacco Past 30 Days Alcohol Use: Never Hospital Course Hospital course fairly uneventful, occasionally needing some redirection assistance however only weekend patient behavior improved. She focuses still on discharge however patient showing more alertness and better processing.. She denies suicidality homicidality voices or visions. States she does wish to return home with her brother. Compliant with medications and is willing to follow-up mental health services of the community years that while her family brought her down from out of state the past few weeks there may be some discussion about an alternative placement for this lady. I feel this is a consideration that needs to be addressed as an outpatient between the family and [place]. At this time patient no longer meets criteria for acute inpatient psychiatric hospitalization thus patient will be discharged today with 1 month worth of medication to follow-up through [facility] mental health services in the [facility] Results Blood Pressure 137 / 67 Vital Signs Date Time Temp Pulse Resp B/P Pulse Ox O2 Delivery O2 Flow Rate FiO2 04/16/16 09:33 97.6 71 18 137/67 04/16/16 05:49 98 Urine toxicology negative blood alcohol level negative Summary of Procedures None done Imaging Last Impressions Hip and Pelvis X-Ray 04/15/16 0000 Signed Impressions: Service Date/Time: Friday, April 15, 2016 09:15 - CONCLUSION: Osteopenia, negative for fracture. CT scanning would be more sensitive the patient remains symptomatic Dhiraj Jose MD FACR Pending results at discharge: No Medications # of Antipsychotic meds at D/C: 0 Approp Antipsych med options 1 - Minimum of three failed multiple trials of monotherapy. 2 - Documented plan to taper to monotherapy due to previous use of multiple meds OR cross-taper in progress at D/C. 3 - Documentation of augmentation of Clozapine. 4 - Justification other than those listed in allowable values 1-3, document here : Discharge Discharge Date: Apr 16, 2016 Discharge Diagnosis: (1) Adjustment disorder with mixed anxiety and depressed mood Diagnosis: Principal ICD Code: F43.23 Mental Status Exam at Disch Alert oriented heavyset white female calm cooperative, normoactive, mood euthymic to somewhat restricted with slight decrease range of motion intensity, speech rate and rhythm within normal limits no formal thought disorders no auditory or visual hallucinations no delusions insight and judgment is poor cognition grossly intact Pt Condition on Discharge: Stable Discharge Disposition: Discharge Home Discharge Instructions Diet Instructions: As Tolerated, No Restrictions Activities you can perform: Regular-No Restrictions Scheduled Appointment: George Roach Discharge Time <= 30 minutes Discharge/Advance Care Plan Health Problems: (1) Adjustment disorder with mixed anxiety and depressed mood Goals to promote your health * To prevent worsening of your condition and complications * To maintain your health at the optimal level Directions to meet your goals Take your medications as prescribed Follow your dietary instruction Follow activity as directed Keep your appointments as scheduled Take your immunizations and boosters as scheduled If your symptoms worsen call your PCP, if no PCP go to Urgent Care Center or Emergency Room For 18/11 questions related to your inpatient stay or results of tests pending at discharge, please contact Dr. Felipe Ro at Smoking is Dangerous to Your Health. Avoid second hand smoking Felipe Ro MD Apr 16, 2016 12:15
[2016-04-16] MEDS: LORazepam 0.5 MG TAB PO PRN (14:11)
[2016-04-16] MEDS: MAGNESIUM HYDROXIDE SUSP 30 ML CUP PO PRN (16:44)
[2016-04-16 19:42] VITALS: BP 170/74; PULSE 84; RESP 17; TEMP 97.9
[2016-04-16] MEDS: ATORVASTATIN 20 MG TAB PO SCH (21:10)
[2016-04-16] MEDS: GABAPENTIN 300 MG CAP PO SCH (21:10)
[2016-04-16] MEDS: INSULIN DETEMIR 100 UNITS/ML VIAL SQ SCH (21:11)
[2016-04-17 06:06] VITALS: BP 135/60; PULSE 62; RESP 18; TEMP 98.4; O2SAT 99
[2016-04-17] MEDS: INSULIN ASPART SUPPLEMENTAL SCALE SQ SCH ×4 (07:00→21:53)
[2016-04-17] MEDS: LISINOPRIL 20 MG TAB PO SCH ×2 (09:21→21:51)
[2016-04-17] MEDS: FUROSEMIDE 20 MG TAB PO SCH (09:21)
[2016-04-17] MEDS: ATENOLOL 25 MG TAB PO SCH (09:21)
[2016-04-17] MEDS: ISOSORBIDE MONONITRATE 30 MG TAB PO SCH (09:21)
[2016-04-17] MEDS: DABIGATRAN ETEXILATE 150 MG CAP PO SCH (09:21)
[2016-04-17] MEDS: PANTOPRAZOLE SOD 40 MG DELAYED RELEASE TAB PO SCH (09:21)
[2016-04-17] MEDS: ACETAMINOPHEN/HYDROcodone 325 MG/10 MG TAB PO PRN ×3 (09:24→21:53)
[2016-04-17] MEDS: LORazepam 0.5 MG TAB PO PRN (09:45)
[2016-04-17] MEDS ORDERED: MAGNESIUM CITRATE SOLN 300 ML BTL PO ONE (10:30)
--- NOTE | 2016-04-17 10:34 | HHI.PR ---
Subjective Remarks Follow up for hypertension blood pressure improved Pee headache, SOB, fevers, chills, nausea or vomiting C/O constipation although last BM was 04/15/2016, continues to have flatus- requesting magnesium citrate, reports that is what she takes at home Objective Vitals Vital Signs Date Time Temp Pulse Resp B/P Pulse Ox O2 Delivery O2 Flow Rate FiO2 04/17/16 06:06 98.4 62 18 135/60 99 04/17/16 00:54 16 04/16/16 19:42 97.9 84 17 170/74 I/O 04/16/16 04/16/16 04/16/16 04/17/16 04/17/16 04/17/16 06:59 14:59 22:59 06:59 14:59 22:59 Intake Total 0 ml 960 ml 600 ml 240 ml Balance 0 ml 960 ml 600 ml 240 ml Intake Oral 0 ml 960 ml 240 ml Oral Supplement 600 ml # Voids 2 2 1 2 # Bowel Movements 0 Imaging Last Impressions Hip and Pelvis X-Ray 04/15/16 0000 Signed Impressions: Service Date/Time: Friday, April 15, 2016 09:15 - CONCLUSION: Osteopenia, negative for fracture. CT scanning would be more sensitive the patient remains symptomatic Dhiraj Jose MD FACR Objective Remarks Not in distress, well-nourished, looks stated age EOMI, pink conjunctiva without injection, anicteric Nose without bleeding, airway patent, oropharynx clear Supple neck, no masses or thyromegaly, trachea midline Normal rate and regular rhythm, no murmurs gallops or rubs appreciated. Clear to auscultation and symmetric bilaterally, normal respiratory effort. Normal bowel sounds, soft, non-tender, nondistended, no guarding. pos flatus Extremities without clubbing, cyanosis, or edema. No rash of generalized distribution. Skin is warm and dry. Awake and alert, moves all 4 extremities, no focal neurologic deficits A/P Assessment and Plan Pleasant 75-year-old female patient currently inpatient psychiatric center we have been consulted for assistance with hypertension and diabetes mellitus. Patient is on Pradaxa reports some kind of heart rhythm problem in the past requiring pacemaker placement question atrial fibrillation. HTN Continue lisinopril to 20mg BID atenolol and clonidine as needed. Monitor vital signs per protocol do not want to lower her blood pressure anymore this patient has had a recent fall Fall Right hip pelvic and x-ray reviewed no acute fracture identified Patient is ambulatory with walker after fall encouraged patient to use walker for ambulation and change position slowly orthostatic vital signs Diabetes mellitus. Patient takes 30 units Levemir daily at home will continue Accu-Cheks before meals at bedtime with sliding scale insulin coverage Diabetic diet Question atrial fibrillation history of cardiac arrhythmia requiring pacemaker on Pradaxa at home Will continue Pradaxa- may need to readdress anticoagulation if patient continues to fall Abrasion/ulceration left foot fourth digit and right foot fourth and fifth digit - healing RN present in room request to keep areas protected with diabetic shoes if possible Minimum nonskid socks Bactroban daily to prevent infection Constipation last BM 04/15/2016 abd soft normal active bowel sounds pos flatus mag citrate 150ml x 1 Miralax daily DVT prophylaxis patient is ambulatory encouraged her to use her walker for ambulation Discussed with patient and Dr. Ryan Patient appears medically stable will sign off. If patient condition changes or if further assistance is needed please reconsult Roberta Medina Apr 17, 2016 10:34 Farhad Ryan MD Apr 17, 2016 16:39 Roberta Medina Apr 17, 2016 10:34
[2016-04-17] MEDS: ACETAMINOPHEN 325 MG TAB PO PRN ×2 (12:24→23:49)
--- NOTE | 2016-04-17 12:47 | HHI.PYPN ---
Subjective Remarks Patient seen in dayroom with floor staff, patient calm coping and processing her brothers refusal to lower and his home fairly well. Continues compliant medication. Is willing to work with us to find an appropriate TESSY type placement. This time patient no longer meets Carter criteria. Will lift the Carter act allow patient to sign voluntary. We'll continue to work on placement issues Review of Systems Other No change since 04/11 Objective Alert: Yes [place]: Person, Place, Date Mood: Anxious, Depressed Affect: Labile, Restricted Memory Intact: Comment (fair) Hallucinations: Other (denies) Delusions: No Delusion Type: Other (vigilant) Suicidal: Ideation (denies at this time) Homicidal: Ideation (denies) Insight/Judgement Poor to fair Vitals/IOs Vital Signs Date Time Temp Pulse Resp B/P Pulse Ox O2 Delivery O2 Flow Rate FiO2 04/17/16 06:06 98.4 62 18 135/60 99 Intake and Output 04/16/16 04/16/16 04/17/16 08:00 16:00 00:00 Intake Total 0 ml 960 ml 600 ml Balance 0 ml 960 ml 600 ml Assessment & Plan Problem List: (1) Adjustment disorder with mixed anxiety and depressed mood ICD Code: F43.23 Assessment & Plan Estimated LOS: days patient coping well with delays in placement need to discover appropriate placement Justification for Cont. Inpt. Patient will decompensate at a lower level of care Discharge Planning To be determined Request HC Surrog/Guard Advoc?: No Felipe Ro MD Apr 17, 2016 12:47
[2016-04-17 18:00] VITALS: BP 144/63; PULSE 85; RESP 18; TEMP 98.1; O2SAT 95
[2016-04-17] MEDS: ATORVASTATIN 20 MG TAB PO SCH (21:51)
[2016-04-17] MEDS: GABAPENTIN 300 MG CAP PO SCH (21:51)
[2016-04-17] MEDS: INSULIN DETEMIR 100 UNITS/ML VIAL SQ SCH (21:52)
[2016-04-18] MEDS: ACETAMINOPHEN/HYDROcodone 325 MG/10 MG TAB PO PRN ×4 (03:55→20:47)
[2016-04-18 06:00] VITALS: BP 108/58; PULSE 60; RESP 18; TEMP 97.9; O2SAT 95
[2016-04-18] MEDS: INSULIN ASPART SUPPLEMENTAL SCALE SQ SCH ×4 (06:17→20:55)
[2016-04-18] MEDS: DABIGATRAN ETEXILATE 150 MG CAP PO SCH (09:44)
[2016-04-18] MEDS: LISINOPRIL 20 MG TAB PO SCH ×2 (09:45→20:47)
[2016-04-18] MEDS: PANTOPRAZOLE SOD 40 MG DELAYED RELEASE TAB PO SCH (09:45)
[2016-04-18] MEDS: ISOSORBIDE MONONITRATE 30 MG TAB PO SCH (09:45)
[2016-04-18] MEDS: FUROSEMIDE 20 MG TAB PO SCH (09:45)
[2016-04-18] MEDS: ATENOLOL 25 MG TAB PO SCH (09:45)
[2016-04-18] MEDS: POLYETHYLENE GLYCOL 17 GM PKG PO SCH (09:45)
[2016-04-18] MEDS: ACETAMINOPHEN 325 MG TAB PO PRN (09:49)
--- NOTE | 2016-04-18 12:12 | HHI.PYPN ---
Subjective Remarks Patient seen in day room with floor staff, patient somewhat somatic today though still coping with delays related to placement. She denies suicidality, denies voices, is compliant with medication. for now continue treatment Review of Systems Other No change since 04/11 Objective Alert: Yes [place]: Person, Place, Date Mood: Anxious, Depressed Affect: Labile, Restricted Memory Intact: Comment (fair) Hallucinations: Other (denies) Delusions: No Delusion Type: Other (vigilant) Suicidal: Ideation (denies at this time) Homicidal: Ideation (denies) Insight/Judgement Poor Vitals/IOs Vital Signs Date Time Temp Pulse Resp B/P Pulse Ox O2 Delivery O2 Flow Rate FiO2 04/18/16 06:00 97.9 60 18 108/58 95 Intake and Output 04/17/16 04/17/16 04/17/16 07:59 15:59 23:59 Intake Total 240 ml 960 ml 600 ml Balance 240 ml 960 ml 600 ml Assessment & Plan Problem List: (1) Adjustment disorder with mixed anxiety and depressed mood ICD Code: F43.23 Assessment & Plan Estimated LOS: days patient compliant medications, mildly somatic no behavioral problems. Continue to work on placement issues Justification for Cont. Inpt. Patient was really decompensate at any the lower level of care and that provided at a placement in an TESSY/[facility] Discharge Planning To be determined Request HC Surrog/Guard Advoc?: No Felipe Ro MD Apr 18, 2016 12:12
[2016-04-18 18:25] VITALS: BP 119/55; PULSE 64; RESP 18; TEMP 97.7; O2SAT 99
[2016-04-18] MEDS: GABAPENTIN 300 MG CAP PO SCH (20:47)
[2016-04-18] MEDS: ATORVASTATIN 20 MG TAB PO SCH (20:47)
[2016-04-18] MEDS: INSULIN DETEMIR 100 UNITS/ML VIAL SQ SCH (20:54)
[2016-04-19] MEDS: ACETAMINOPHEN/HYDROcodone 325 MG/10 MG TAB PO PRN ×4 (03:26→22:00)
[2016-04-19] MEDS: LORazepam 0.5 MG TAB PO PRN ×2 (04:10→16:27)
[2016-04-19 05:52] VITALS: BP 125/49; PULSE 72; RESP 18; TEMP 97.1; O2SAT 100
[2016-04-19] MEDS: INSULIN ASPART SUPPLEMENTAL SCALE SQ SCH ×4 (06:02→20:13)
[2016-04-19] MEDS: ATENOLOL 25 MG TAB PO SCH (09:00)
[2016-04-19] MEDS: FUROSEMIDE 20 MG TAB PO SCH (09:43)
[2016-04-19] MEDS: DABIGATRAN ETEXILATE 150 MG CAP PO SCH (09:43)
[2016-04-19] MEDS: ISOSORBIDE MONONITRATE 30 MG TAB PO SCH (09:43)
[2016-04-19] MEDS: POLYETHYLENE GLYCOL 17 GM PKG PO SCH (09:44)
[2016-04-19] MEDS: PANTOPRAZOLE SOD 40 MG DELAYED RELEASE TAB PO SCH (09:44)
[2016-04-19] MEDS: LISINOPRIL 20 MG TAB PO SCH ×2 (09:44→21:53)
--- NOTE | 2016-04-19 11:34 | HHI.PYPN ---
Subjective Remarks Patient seen in day room with nurse Kristel, chart reviewed, patient continues to cope with placement issues, complains of some pain in her toes, will have hospitalist address that. Patient compliant with medications. Patient does denies suicidality at the present time Review of Systems Constitutional: DENIES: Diaphoretic episodes, Fatigue, Fever, Weight gain, Weight loss, Chills, Dizziness, Change in appetite, Night Sweats Endocrine: DENIES: Abnorml menstrual pattern, Heat/cold intolerance, Polydipsia , Polyuria, Polyphagia Eyes: DENIES: Blurred vision, Diplopia, Eye inflammation, Eye pain, Vision loss , Photosensitivity, Double Vision Ears, nose, mouth, throat: DENIES: Tinnitus, Hearing loss, Vertigo, Nasal discharge, Oral lesions, Throat pain, Hoarseness, Ear Pain, Running Nose, Epistaxis, Sinus Pain, Toothache, Odynophagia Respiratory: DENIES: Apneas, Cough, Snoring, Wheezing, Hemoptysis, Sputum production, Shortness of breath Cardiovascular: DENIES: Chest pain, Palpitations, Syncope, Dyspnea on Exertion , PND, Lower Extremity Edema, Orthopnea, Claudication Gastrointestinal: DENIES: Abdominal pain, Black stools, Bloody stools, Constipation, Diarrhea, Nausea, Vomiting, Difficulty Swallowing, Anorexia Genitourinary: DENIES: Abnormal vaginal bleeding, Dysmenorrhea, Dyspareunia, Sexual dysfunction, Urinary frequency, Urinary incontinence, Urgency, Hematuria , Dysuria, Nocturia, Vaginal discharge Musculoskeletal: COMPLAINS OF: Joint pain (complains of pain in toes on both right and left feet), DENIES: Muscle aches, Stiffness, Joint Swelling, Back pain, Neck pain Integumentary: DENIES: Abnormal pigmentation, Pruritus, Rash, Nail changes, Breast masses, Breast skin changes, Nipple discharge Hematologic/lymphatic: DENIES: Bruising, Lymphadenopathy Immunologic/allergic: DENIES: Eczema, Urticaria Neurologic: DENIES: Abnormal gait, Headache, Localized weakness, Paresthesias, Seizures, Speech Problems, Tremor, Poor Balance Psychiatric: COMPLAINS OF: Anxiety, Depression (related to placement issues and rejection by brother) Objective Alert: Yes [place]: Person, Place, Date Mood: Anxious, Depressed Affect: Labile, Restricted Memory Intact: Comment (fair) Hallucinations: Other (denies) Delusions: No Delusion Type: Other (vigilant) Suicidal: Ideation (denies at this time) Homicidal: Ideation (denies) Insight/Judgement Poor Vitals/IOs Vital Signs Date Time Temp Pulse Resp B/P Pulse Ox O2 Delivery O2 Flow Rate FiO2 04/19/16 05:52 97.1 72 18 125/49 100 Intake and Output 04/18/16 04/18/16 04/19/16 08:00 16:00 00:00 Intake Total 840 ml 840 ml Balance 840 ml 840 ml Assessment & Plan Problem List: (1) Adjustment disorder with mixed anxiety and depressed mood ICD Code: F43.23 Assessment & Plan Estimated LOS: days patient continue somewhat sad or placement issues. Also complains of pain to the toes on both feet live hospitalist check this over. Placement continues to remain problematic Justification for Cont. Inpt. Patient would severely decompensated a lower level of care Discharge Planning To be determined Request HC Surrog/Guard Advoc?: No Felipe Ro MD Apr 19, 2016 11:34
[2016-04-19] MEDS: BACITRACIN TOP OINT 15 GM TUBE TOP SCH ×2 (16:31→22:01)
[2016-04-19 19:39] VITALS: BP 134/60; PULSE 65; RESP 18; TEMP 96.2; O2SAT 100
[2016-04-19] MEDS: INSULIN DETEMIR 100 UNITS/ML VIAL SQ SCH (21:52)
[2016-04-19] MEDS: ATORVASTATIN 20 MG TAB PO SCH (21:53)
[2016-04-19] MEDS: GABAPENTIN 300 MG CAP PO SCH (21:53)
[2016-04-20] MEDS: ACETAMINOPHEN/HYDROcodone 325 MG/10 MG TAB PO PRN ×4 (03:29→20:55)
[2016-04-20] MEDS: BACITRACIN TOP OINT 15 GM TUBE TOP SCH ×3 (05:28→20:55)
[2016-04-20] MEDS: INSULIN ASPART SUPPLEMENTAL SCALE SQ SCH ×4 (05:45→20:57)
[2016-04-20 05:47] VITALS: BP 114/55; PULSE 61; RESP 17; TEMP 97.7; O2SAT 96
[2016-04-20] MEDS: POLYETHYLENE GLYCOL 17 GM PKG PO SCH (09:18)
[2016-04-20] MEDS: DABIGATRAN ETEXILATE 150 MG CAP PO SCH (09:19)
[2016-04-20] MEDS: LISINOPRIL 20 MG TAB PO SCH ×2 (09:19→20:56)
[2016-04-20] MEDS: PANTOPRAZOLE SOD 40 MG DELAYED RELEASE TAB PO SCH (09:19)
[2016-04-20] MEDS: FUROSEMIDE 20 MG TAB PO SCH (09:19)
[2016-04-20] MEDS: ATENOLOL 25 MG TAB PO SCH (09:19)
[2016-04-20] MEDS: ISOSORBIDE MONONITRATE 30 MG TAB PO SCH (09:19)
--- NOTE | 2016-04-20 16:49 | HHI.PYPN ---
Subjective Remarks Patient seen in day room with floor staff, chart review, patient coping well with delays and placement. Compliant medications. For now continue treatment no change Review of Systems Other No somatic complaints today Objective Alert: Yes [place]: Person, Place, Date Mood: Anxious, Depressed Affect: Labile, Restricted Memory Intact: Comment (fair) Hallucinations: Other (denies) Delusions: No Delusion Type: Other (vigilant) Suicidal: Ideation (denies at this time) Homicidal: Ideation (denies) Insight/Judgement Poor Vitals/IOs Vital Signs Date Time Temp Pulse Resp B/P Pulse Ox O2 Delivery O2 Flow Rate FiO2 04/20/16 05:47 97.7 61 17 114/55 96 Intake and Output 04/19/16 04/19/16 04/19/16 07:59 15:59 23:59 Intake Total 120 ml 2040 ml 600 ml Balance 120 ml 2040 ml 600 ml Assessment & Plan Problem List: (1) Adjustment disorder with mixed anxiety and depressed mood ICD Code: F43.23 Assessment & Plan Estimated LOS: days patient continues to cope with delays and placement, no significant behavioral problems. Justification for Cont. Inpt. At this time patient will decompensate a placed in the lower level of care Discharge Planning Be determined Request HC Surrog/Guard Advoc?: No Felipe Ro MD Apr 20, 2016 16:49
[2016-04-20 19:46] VITALS: BP 122/56; PULSE 61; RESP 17; TEMP 98.4; O2SAT 99
[2016-04-20] MEDS: GABAPENTIN 300 MG CAP PO SCH (20:56)
[2016-04-20] MEDS: ATORVASTATIN 20 MG TAB PO SCH (20:56)
[2016-04-20] MEDS: INSULIN DETEMIR 100 UNITS/ML VIAL SQ SCH (20:57)
[2016-04-21] MEDS: ACETAMINOPHEN/HYDROcodone 325 MG/10 MG TAB PO PRN ×3 (02:07→20:44)
[2016-04-21] MEDS: BACITRACIN TOP OINT 15 GM TUBE TOP SCH ×3 (06:04→21:55)
[2016-04-21] MEDS: INSULIN ASPART SUPPLEMENTAL SCALE SQ SCH ×4 (06:27→21:00)
[2016-04-21 06:28] VITALS: BP 104/68; PULSE 66; RESP 18; TEMP 96.7; O2SAT 99
[2016-04-21] MEDS: ISOSORBIDE MONONITRATE 30 MG TAB PO SCH (09:00)
[2016-04-21] MEDS: FUROSEMIDE 20 MG TAB PO SCH (09:00)
[2016-04-21] MEDS: ATENOLOL 25 MG TAB PO SCH (09:00)
[2016-04-21] MEDS: LISINOPRIL 20 MG TAB PO SCH ×2 (09:00→21:00)
[2016-04-21] MEDS: DABIGATRAN ETEXILATE 150 MG CAP PO SCH (09:56)
[2016-04-21] MEDS: POLYETHYLENE GLYCOL 17 GM PKG PO SCH (09:56)
[2016-04-21] MEDS: PANTOPRAZOLE SOD 40 MG DELAYED RELEASE TAB PO SCH (09:56)
--- NOTE | 2016-04-21 13:17 | HHI.PYPN ---
Subjective Remarks Patient was seen and case discussed with nursing. Patient is labile today complaining of toe pain. Per nursing this but pain is not new and she is on medications for it. Patient is labile and tearful because her brother won't talk to her. Upset because is the holidays. Denies suicidal ideations thought or plan Objective Alert: Yes [place]: Person, Place, Date Mood: Anxious, Depressed Affect: Labile, Restricted Memory Intact: Comment (fair) Hallucinations: Other (denies) Delusions: No Delusion Type: Other (vigilant) Suicidal: Ideation (denies at this time) Homicidal: Ideation (denies) Insight/Judgement Poor Vitals/IOs Vital Signs Date Time Temp Pulse Resp B/P Pulse Ox O2 Delivery O2 Flow Rate FiO2 04/21/16 06:28 96.7 66 18 104/68 99 Intake and Output 04/20/16 04/20/16 04/21/16 08:00 16:00 00:00 Intake Total 360 ml 480 ml 720 ml Output Total 2 ml Balance 358 ml 480 ml 720 ml Assessment & Plan Problem List: (1) Adjustment disorder with mixed anxiety and depressed mood ICD Code: F43.23 Assessment & Plan [place] current treatment plan Justification for Cont. Inpt. Patient will decompensate in a less restrictive setting Request HC Surrog/Guard Advoc?: No Julien Lorenzo DO Apr 21, 2016 13:16
[2016-04-21 19:30] VITALS: BP 135/60; PULSE 61; RESP 12; TEMP 97.7; O2SAT 96
[2016-04-21] MEDS: ATORVASTATIN 20 MG TAB PO SCH (21:00)
[2016-04-21] MEDS: GABAPENTIN 300 MG CAP PO SCH (21:00)
[2016-04-21] MEDS: INSULIN DETEMIR 100 UNITS/ML VIAL SQ SCH (21:00)
[2016-04-22] MEDS: ACETAMINOPHEN/HYDROcodone 325 MG/10 MG TAB PO PRN ×3 (02:32→15:36)
[2016-04-22] MEDS: LORazepam 0.5 MG TAB PO PRN (02:34)
[2016-04-22] MEDS: BACITRACIN TOP OINT 15 GM TUBE TOP SCH ×3 (06:00→21:07)
[2016-04-22] MEDS: INSULIN ASPART SUPPLEMENTAL SCALE SQ SCH ×4 (06:10→21:06)
[2016-04-22 06:17] VITALS: BP 134/71; PULSE 90; RESP 18; TEMP 97.6; O2SAT 98
[2016-04-22] MEDS: ISOSORBIDE MONONITRATE 30 MG TAB PO SCH (10:38)
[2016-04-22] MEDS: LISINOPRIL 20 MG TAB PO SCH ×2 (10:39→21:07)
[2016-04-22] MEDS: PANTOPRAZOLE SOD 40 MG DELAYED RELEASE TAB PO SCH (10:39)
[2016-04-22] MEDS: DABIGATRAN ETEXILATE 150 MG CAP PO SCH (10:39)
[2016-04-22] MEDS: ATENOLOL 25 MG TAB PO SCH (10:39)
[2016-04-22] MEDS: FUROSEMIDE 20 MG TAB PO SCH (10:40)
[2016-04-22] MEDS: POLYETHYLENE GLYCOL 17 GM PKG PO SCH (10:45)
--- NOTE | 2016-04-22 15:27 | HHI.PYPN ---
Subjective Remarks Patient discussed with treatment team, seen on unit, chart review, patient coping well though somewhat sad about problems related to her placement. She denies suicidality of voices at the present time Review of Systems Other No somatic complaints voiced today Objective Alert: Yes [place]: Person, Place, Date Mood: Anxious, Depressed Affect: Labile, Restricted Memory Intact: Comment (fair) Hallucinations: Other (denies) Delusions: No Delusion Type: Other (vigilant) Suicidal: Ideation (denies at this time) Homicidal: Ideation (denies) Insight/Judgement Poor Vitals/IOs Vital Signs Date Time Temp Pulse Resp B/P Pulse Ox O2 Delivery O2 Flow Rate FiO2 04/22/16 06:17 97.6 90 18 134/71 98 Intake and Output 04/21/16 04/21/16 04/22/16 08:00 16:00 00:00 Intake Total 720 ml 600 ml Balance 720 ml 600 ml Assessment & Plan Problem List: (1) Adjustment disorder with mixed anxiety and depressed mood ICD Code: F43.23 Assessment & Plan Estimated LOS: days patient remains somewhat sad related to the difficulties and placement, compliant medications, for now continue treatment no change Justification for Cont. Inpt. At this time patient would decompensated place no lower level of care Discharge Planning To be determined Request HC Surrog/Guard Advoc?: No Felipe Ro MD Apr 22, 2016 15:27
[2016-04-22] MEDS: RESP: ALBUTEROL 2.5 MG/IPRATROPIUM 0.5 MG NEB (PRN) NEB (18:18)
[2016-04-22 19:54] VITALS: BP 130/60; PULSE 65; RESP 18; TEMP 97.7; O2SAT 99
[2016-04-22] MEDS: INSULIN DETEMIR 100 UNITS/ML VIAL SQ SCH (21:06)
[2016-04-22] MEDS: ATORVASTATIN 20 MG TAB PO SCH (21:07)
[2016-04-22] MEDS: GABAPENTIN 300 MG CAP PO SCH (21:07)
[2016-04-23] MEDS: ACETAMINOPHEN/HYDROcodone 325 MG/10 MG TAB PO PRN ×4 (00:52→21:30)
[2016-04-23 06:00] VITALS: BP 142/64; PULSE 75; RESP 17; TEMP 98.2; O2SAT 96
[2016-04-23] MEDS: INSULIN ASPART SUPPLEMENTAL SCALE SQ SCH ×4 (06:05→21:29)
[2016-04-23] MEDS: BACITRACIN TOP OINT 15 GM TUBE TOP SCH ×3 (06:15→21:48)
--- NOTE | 2016-04-23 09:10 | HHI.PYPN ---
Subjective Remarks Patient seen in day room with nurse Kellie, chart review, patient overall, cooperative patient complains somewhat of pain towards her right hip. Though that is tolerable. Patient also coping well with delays related to placement, treatment somewhat sad and distressed at her brother's refusal to allow her back in his home Review of Systems Other No somatic complaints today Objective Alert: Yes [place]: Person, Place, Date Mood: Anxious, Depressed Affect: Labile, Restricted Memory Intact: Comment (fair) Hallucinations: Other (denies) Delusions: No Delusion Type: Other (vigilant) Suicidal: Ideation (denies at this time) Homicidal: Ideation (denies) Insight/Judgement Poor Vitals/IOs Vital Signs Date Time Temp Pulse Resp B/P Pulse Ox O2 Delivery O2 Flow Rate FiO2 04/23/16 06:00 98.2 75 17 142/64 96 Intake and Output 04/22/16 04/22/16 04/22/16 07:59 15:59 23:59 Intake Total 120 ml 960 ml 840 ml Balance 120 ml 960 ml 840 ml Assessment & Plan Problem List: (1) Adjustment disorder with mixed anxiety and depressed mood ICD Code: F43.23 Assessment & Plan Estimated LOS: days patient continues somewhat depressed no behavior problems. Placement remains problematic Justification for Cont. Inpt. Insistent patient would decompensated placed on lower level of care Discharge Planning To be determined Request HC Surrog/Guard Advoc?: Felipe Kang MD Apr 23, 2016 09:10
[2016-04-23] MEDS: ATENOLOL 25 MG TAB PO SCH (09:29)
[2016-04-23] MEDS: FUROSEMIDE 20 MG TAB PO SCH (09:29)
[2016-04-23] MEDS: LISINOPRIL 20 MG TAB PO SCH ×2 (09:29→21:30)
[2016-04-23] MEDS: PANTOPRAZOLE SOD 40 MG DELAYED RELEASE TAB PO SCH (09:29)
[2016-04-23] MEDS: DABIGATRAN ETEXILATE 150 MG CAP PO SCH (09:29)
[2016-04-23] MEDS: ISOSORBIDE MONONITRATE 30 MG TAB PO SCH (09:30)
[2016-04-23] MEDS: POLYETHYLENE GLYCOL 17 GM PKG PO SCH (09:30)
[2016-04-23 20:14] VITALS: BP 122/59; PULSE 66; RESP 17; TEMP 98.5; O2SAT 100
[2016-04-23] MEDS: INSULIN DETEMIR 100 UNITS/ML VIAL SQ SCH (21:28)
[2016-04-23] MEDS: GABAPENTIN 300 MG CAP PO SCH (21:29)
[2016-04-23] MEDS: ATORVASTATIN 20 MG TAB PO SCH (21:30)
[2016-04-24] MEDS: LORazepam 0.5 MG TAB PO PRN (00:25)
[2016-04-24] MEDS: ACETAMINOPHEN/HYDROcodone 325 MG/10 MG TAB PO PRN ×4 (02:29→21:59)
[2016-04-24] MEDS: INSULIN ASPART SUPPLEMENTAL SCALE SQ SCH ×4 (06:14→20:36)
[2016-04-24] MEDS: BACITRACIN TOP OINT 15 GM TUBE TOP SCH ×3 (06:14→21:45)
[2016-04-24 06:32] VITALS: BP 111/56; PULSE 69; RESP 18; TEMP 97.8; O2SAT 96
--- NOTE | 2016-04-24 09:04 | HHI.PYPN ---
Subjective Remarks Patient seen in room with nurse Khushboo, patient is somewhat sleepy this morning since she does sleep well SI. He she continues to cope with delays in placement to refusal of her brother to take her home. However there appears she is some risk of her center decompensate with irritability and lability related to the above. For now continue treatment no change Review of Systems Other No somatic complaints today Objective Alert: Yes [place]: Person, Place, Date Mood: Anxious, Depressed Affect: Labile, Restricted Memory Intact: Comment (fair) Hallucinations: Other (denies) Delusions: No Delusion Type: Other (vigilant) Suicidal: Ideation (denies at this time) Homicidal: Ideation (denies) Insight/Judgement Poor Vitals/IOs Vital Signs Date Time Temp Pulse Resp B/P Pulse Ox O2 Delivery O2 Flow Rate FiO2 04/24/16 06:32 97.8 69 18 111/56 96 Intake and Output 04/23/16 04/23/16 04/24/16 08:00 16:00 00:00 Intake Total 240 ml 1080 ml 960 ml Balance 240 ml 1080 ml 960 ml Assessment & Plan Problem List: (1) Adjustment disorder with mixed anxiety and depressed mood ICD Code: F43.23 Assessment & Plan Estimated LOS: days patient continues coping with delays and placement though she becomes somewhat more labile and tearful. For now continue treatment no change Justification for Cont. Inpt. At this time patient would decompensated placed in a lower level of care Discharge Planning To be determined Request HC Surrog/Guard Advoc?: No Felipe Ro MD Apr 24, 2016 09:04
[2016-04-24] MEDS: POLYETHYLENE GLYCOL 17 GM PKG PO SCH (09:31)
[2016-04-24] MEDS: PANTOPRAZOLE SOD 40 MG DELAYED RELEASE TAB PO SCH (09:31)
[2016-04-24] MEDS: LISINOPRIL 20 MG TAB PO SCH ×2 (09:31→21:45)
[2016-04-24] MEDS: FUROSEMIDE 20 MG TAB PO SCH (09:32)
[2016-04-24] MEDS: ISOSORBIDE MONONITRATE 30 MG TAB PO SCH (09:34)
[2016-04-24] MEDS: DABIGATRAN ETEXILATE 150 MG CAP PO SCH (09:34)
[2016-04-24] MEDS: ATENOLOL 25 MG TAB PO SCH (09:34)
[2016-04-24] MEDS: NYSTATIN 100,000 U/GM PWD 15 GM BTL TOPICAL SCH ×2 (15:05→21:45)
[2016-04-24 19:49] VITALS: BP 132/60; PULSE 64; RESP 17; TEMP 97.4; O2SAT 99
[2016-04-24] MEDS: INSULIN DETEMIR 100 UNITS/ML VIAL SQ SCH (21:43)
[2016-04-24] MEDS: ATORVASTATIN 20 MG TAB PO SCH (21:44)
[2016-04-24] MEDS: GABAPENTIN 300 MG CAP PO SCH (21:44)
[2016-04-25] MEDS: ACETAMINOPHEN/HYDROcodone 325 MG/10 MG TAB PO PRN ×3 (04:04→20:16)
[2016-04-25] MEDS: BACITRACIN TOP OINT 15 GM TUBE TOP SCH ×3 (05:57→21:40)
[2016-04-25] MEDS: INSULIN ASPART SUPPLEMENTAL SCALE SQ SCH ×4 (05:58→21:00)
[2016-04-25 06:00] VITALS: BP 113/54; PULSE 64; RESP 15; TEMP 97.7; O2SAT 98
[2016-04-25] MEDS: POLYETHYLENE GLYCOL 17 GM PKG PO SCH (08:47)
[2016-04-25] MEDS: ISOSORBIDE MONONITRATE 30 MG TAB PO SCH (08:48)
[2016-04-25] MEDS: LISINOPRIL 20 MG TAB PO SCH ×2 (08:48→20:15)
[2016-04-25] MEDS: PANTOPRAZOLE SOD 40 MG DELAYED RELEASE TAB PO SCH (08:48)
[2016-04-25] MEDS: FUROSEMIDE 20 MG TAB PO SCH (08:48)
[2016-04-25] MEDS: DABIGATRAN ETEXILATE 150 MG CAP PO SCH (08:48)
[2016-04-25] MEDS: ATENOLOL 25 MG TAB PO SCH (08:48)
[2016-04-25] MEDS: NYSTATIN 100,000 U/GM PWD 15 GM BTL TOPICAL SCH ×2 (08:49→20:15)
--- NOTE | 2016-04-25 12:41 | HHI.PYPN ---
Subjective Remarks Patient seen in day room with nurse Tay, patient calm pleasant with me though the remain some stress and mild dysphoria related to placement issues. Compliant medications. For now continue treatment Review of Systems Other No somatic problems today Objective Alert: Yes [place]: Person, Place, Date Mood: Anxious, Depressed Affect: Labile, Restricted Memory Intact: Comment (fair) Hallucinations: Other (denies) Delusions: No Delusion Type: Other (vigilant) Suicidal: Ideation (denies at this time) Homicidal: Ideation (denies) Insight/Judgement Poor Vitals/IOs Vital Signs Date Time Temp Pulse Resp B/P Pulse Ox O2 Delivery O2 Flow Rate FiO2 04/25/16 06:00 97.7 64 15 113/54 98 Intake and Output 04/24/16 04/24/16 04/24/16 07:59 15:59 23:59 Intake Total 0 ml 960 ml 360 ml Balance 0 ml 960 ml 360 ml Assessment & Plan Problem List: (1) Adjustment disorder with mixed anxiety and depressed mood ICD Code: F43.23 Assessment & Plan Estimated LOS: days patient remains somewhat confused tearful though coping with placement issues Justification for Cont. Inpt. At this time patient will decompensate a placed on the lower level of care Discharge Planning To be determined Request HC Surrog/Guard Advoc?: No Felipe Ro MD Apr 25, 2016 12:41
[2016-04-25] MEDS: ATORVASTATIN 20 MG TAB PO SCH (20:15)
[2016-04-25] MEDS: GABAPENTIN 300 MG CAP PO SCH (20:15)
[2016-04-25] MEDS: INSULIN DETEMIR 100 UNITS/ML VIAL SQ SCH (20:16)
[2016-04-25 20:45] VITALS: BP 153/67; PULSE 66; RESP 18; TEMP 97.9; O2SAT 99
[2016-04-25] MEDS: ACETAMINOPHEN 325 MG TAB PO PRN (23:53)
[2016-04-25] MEDS: LORazepam 0.5 MG TAB PO PRN (23:53)
[2016-04-26] MEDS: ACETAMINOPHEN/HYDROcodone 325 MG/10 MG TAB PO PRN ×3 (03:23→20:54)
[2016-04-26 05:50] VITALS: BP 112/49; PULSE 69; RESP 18; TEMP 97.5; O2SAT 99
[2016-04-26] MEDS: BACITRACIN TOP OINT 15 GM TUBE TOP SCH ×3 (06:00→22:09)
[2016-04-26] MEDS: INSULIN ASPART SUPPLEMENTAL SCALE SQ SCH ×4 (06:47→20:52)
[2016-04-26 09:09] VITALS: BP 144/63; PULSE 82
[2016-04-26] MEDS: ATENOLOL 25 MG TAB PO SCH (09:21)
[2016-04-26] MEDS: POLYETHYLENE GLYCOL 17 GM PKG PO SCH (09:21)
[2016-04-26] MEDS: LISINOPRIL 20 MG TAB PO SCH ×2 (09:21→20:53)
[2016-04-26] MEDS: FUROSEMIDE 20 MG TAB PO SCH (09:21)
[2016-04-26] MEDS: ISOSORBIDE MONONITRATE 30 MG TAB PO SCH (09:21)
[2016-04-26] MEDS: PANTOPRAZOLE SOD 40 MG DELAYED RELEASE TAB PO SCH (09:21)
[2016-04-26] MEDS: DABIGATRAN ETEXILATE 150 MG CAP PO SCH (09:22)
[2016-04-26] MEDS: NYSTATIN 100,000 U/GM PWD 15 GM BTL TOPICAL SCH ×2 (09:24→20:53)
--- NOTE | 2016-04-26 14:19 | HHI.PYPN ---
Subjective Remarks Patient seen in dayroom with floor staff, patient continues somewhat anxious Endocet related to placement issues. She is also asked never from Ervin henao today I will make that request of the nursing staff. Otherwise patient compliant medications for now continue treatment Review of Systems Other No somatic complaints today Objective Alert: Yes [place]: Person, Place, Date Mood: Anxious, Depressed Affect: Labile, Restricted Memory Intact: Comment (fair) Hallucinations: Other (denies) Delusions: No Delusion Type: Other (vigilant) Suicidal: Ideation (denies at this time) Homicidal: Ideation (denies) Insight/Judgement Very poor Vitals/IOs Vital Signs Date Time Temp Pulse Resp B/P Pulse Ox O2 Delivery O2 Flow Rate FiO2 04/26/16 09:09 82 144/63 04/26/16 05:50 97.5 18 99 Intake and Output 04/25/16 04/25/16 04/26/16 08:00 16:00 00:00 Intake Total 120 ml 600 ml 240 ml Balance 120 ml 600 ml 240 ml Assessment & Plan Problem List: (1) Adjustment disorder with mixed anxiety and depressed mood ICD Code: F43.23 Assessment & Plan Estimated LOS: days patient continues anxious and somewhat depressed related to placement issues. For now continue treatment Justification for Cont. Inpt. At this time patient will decompensate a placed a lower level of care Discharge Planning To be determined Request HC Surrog/Guard Advoc?: Felipe Kang MD Apr 26, 2016 14:19
[2016-04-26] MEDS: MAGNESIUM HYDROXIDE SUSP 30 ML CUP PO PRN (17:43)
[2016-04-26 19:39] VITALS: BP 123/63; PULSE 70; RESP 18; TEMP 97; O2SAT 100
[2016-04-26] MEDS: INSULIN DETEMIR 100 UNITS/ML VIAL SQ SCH (20:53)
[2016-04-26] MEDS: GABAPENTIN 300 MG CAP PO SCH (20:53)
[2016-04-26] MEDS: ATORVASTATIN 20 MG TAB PO SCH (20:54)
[2016-04-27] MEDS: ACETAMINOPHEN/HYDROcodone 325 MG/10 MG TAB PO PRN ×5 (00:04→23:48)
[2016-04-27] MEDS: LORazepam 0.5 MG TAB PO PRN (02:03)
[2016-04-27] MEDS: ACETAMINOPHEN 325 MG TAB PO PRN (02:04)
[2016-04-27] MEDS: BACITRACIN TOP OINT 15 GM TUBE TOP SCH ×3 (05:47→22:00)
[2016-04-27 06:02] VITALS: BP 137/68; PULSE 61; RESP 16; TEMP 97.3; O2SAT 100
--- NOTE | 2016-04-27 10:02 | HHI.PYPN ---
Subjective Remarks Patient seen and examined with nursing staff. Chart reviewed. Case discussed with nursing staff who reports patient has been no behavioral problem. She is medication compliant. Patient tells me today that she is "waiting to be placed somewhere. He gives me something look forward to." She is upset at her brother as she feels like he placed her here in the hospital. She does endorse some difficulty sleeping but otherwise no psychiatric symptomatology. No reported side effects from medications. Review of Systems Other Complains of some chronic sciatica. Otherwise no reported physical complaints Objective Alert: Yes [place]: Person, Place, Date Mood: Calm Affect: Other (fairly full and reactive) Memory Intact: Comment (at least fair on clinical exam) Hallucinations: Other (no AVH) Delusions: No Delusion Type: Other (no evident delusions) Suicidal: Ideation (no SI) Homicidal: Ideation (no HI) Insight/Judgement Fair Remarks No motoric abnormalities noted. Thought process seems fairly linear. Speech within normal limits for rate, tone and volume. Labs Labs reviewed. No new labs. Vitals/IOs Vital Signs Date Time Temp Pulse Resp B/P Pulse Ox O2 Delivery O2 Flow Rate FiO2 04/27/16 06:02 97.3 61 16 137/68 100 Intake and Output 04/26/16 04/26/16 04/27/16 08:00 16:00 00:00 Intake Total 240 ml 720 ml 2 ml Output Total 450 ml Balance -210 ml 720 ml 2 ml Assessment & Plan Problem List: (1) Adjustment disorder with mixed anxiety and depressed mood ICD Code: F43.23 Assessment & Plan Added some scheduled melatonin for sleep. Continue other medications as ordered. Continue other care as ordered. Justification for Cont. Inpt. Risk for decompensation Discharge Planning Per Dr. Ro Request HC Surrog/Guard Advoc?: No Jian Henderson MD Apr 27, 2016 10:02
[2016-04-27] MEDS: ATENOLOL 25 MG TAB PO SCH (10:25)
[2016-04-27] MEDS: PANTOPRAZOLE SOD 40 MG DELAYED RELEASE TAB PO SCH (10:25)
[2016-04-27] MEDS: DABIGATRAN ETEXILATE 150 MG CAP PO SCH (10:25)
[2016-04-27] MEDS: LISINOPRIL 20 MG TAB PO SCH ×2 (10:25→20:13)
[2016-04-27] MEDS: ISOSORBIDE MONONITRATE 30 MG TAB PO SCH (10:25)
[2016-04-27] MEDS: FUROSEMIDE 20 MG TAB PO SCH (10:26)
[2016-04-27] MEDS: POLYETHYLENE GLYCOL 17 GM PKG PO SCH (10:26)
[2016-04-27] MEDS: NYSTATIN 100,000 U/GM PWD 15 GM BTL TOPICAL SCH ×2 (10:28→21:00)
[2016-04-27] MEDS: INSULIN ASPART SUPPLEMENTAL SCALE SQ SCH ×3 (12:27→21:00)
[2016-04-27 19:09] VITALS: BP 120/62; PULSE 82; RESP 16; TEMP 97.1; O2SAT 99
[2016-04-27] MEDS: MELATONIN 5 MG TAB PO SCH (20:13)
[2016-04-27] MEDS: GABAPENTIN 300 MG CAP PO SCH (20:13)
[2016-04-27] MEDS: ATORVASTATIN 20 MG TAB PO SCH (20:13)
[2016-04-27] MEDS: INSULIN DETEMIR 100 UNITS/ML VIAL SQ SCH (20:13)
[2016-04-28] MEDS: LORazepam 2 MG/ML VIAL IM PRN (01:51)
[2016-04-28 02:08] VITALS: BP 122/88; PULSE 80; RESP 18; TEMP 98; O2SAT 99
[2016-04-28 05:25] VITALS: BP 107/71; PULSE 65; RESP 17; TEMP 97.7
[2016-04-28] MEDS: BACITRACIN TOP OINT 15 GM TUBE TOP SCH ×3 (06:00→21:25)
[2016-04-28] MEDS: INSULIN ASPART SUPPLEMENTAL SCALE SQ SCH ×4 (06:23→21:00)
[2016-04-28] MEDS: DABIGATRAN ETEXILATE 150 MG CAP PO SCH (09:00)
[2016-04-28] MEDS: ATENOLOL 25 MG TAB PO SCH (09:00)
[2016-04-28] MEDS: NYSTATIN 100,000 U/GM PWD 15 GM BTL TOPICAL SCH ×2 (09:00→21:00)
[2016-04-28] MEDS: PANTOPRAZOLE SOD 40 MG DELAYED RELEASE TAB PO SCH (09:00)
[2016-04-28] MEDS: POLYETHYLENE GLYCOL 17 GM PKG PO SCH (09:00)
[2016-04-28] MEDS: LISINOPRIL 20 MG TAB PO SCH ×2 (09:00→21:22)
[2016-04-28] MEDS: FUROSEMIDE 20 MG TAB PO SCH (09:00)
[2016-04-28] MEDS: ISOSORBIDE MONONITRATE 30 MG TAB PO SCH (09:00)
[2016-04-28] MEDS: ACETAMINOPHEN/HYDROcodone 325 MG/10 MG TAB PO PRN ×2 (10:55→19:20)
--- NOTE | 2016-04-28 11:11 | HHI.PYPN ---
Subjective Remarks Patient seen and examined with nursing staff. Chart reviewed. Case discussed with nursing staff. On my examination today, patient appears to be in moderate distress due to complaints of lower extremity pain worse than usual. She endorses a history of DVT. She complains of some tenderness to palpation. No SI or HI voiced. No evident side effects from medications. Review of Systems Other Lower extremity pain Objective Alert: Yes [place]: Person, Place (at least) Mood: Calm Affect: Blunted Memory Intact: Comment (Not assessed) Hallucinations: Other (No AVH) Delusions: No Delusion Type: Other (No delusions) Suicidal: Ideation (No SI voiced) Homicidal: Ideation (No HI) Insight/Judgement Fair Remarks Tenderness to palpation LE b/l. No palpable cord. LLE appears somewhat more swollen than RLE, although pt complains of pain R>L. Questionable Hardeep's b/l. Labs Labs reviewed. Vitals/IOs Vital Signs Date Time Temp Pulse Resp B/P Pulse Ox O2 Delivery O2 Flow Rate FiO2 04/28/16 05:25 97.7 65 17 107/71 04/28/16 02:08 99 Intake and Output 04/27/16 04/27/16 04/27/16 07:59 15:59 23:59 Intake Total 240 ml 720 ml 1940 ml Balance 240 ml 720 ml 1940 ml Assessment & Plan Problem List: (1) Adjustment disorder with mixed anxiety and depressed mood ICD Code: F43.23 (2) Lower extremity pain, bilateral ICD Code: M79.604 Assessment & Plan Urgent LE dopplers. Consult to the hospitalist for LE pain. Continue other medications and care as ordered. Justification for Cont. Inpt. Risk for decompensation. Complicating conditions. Discharge Planning Per Dr. Ro. Request HC Surrog/Guard Advoc?: No Jian Henderson MD Apr 28, 2016 11:11
[2016-04-28] MEDS: LORazepam 0.5 MG TAB PO PRN (12:30)
--- NOTE | 2016-04-28 13:55 | RADRPT ---
EXAM DATE/TIME: 04/28/2016 12:46 [facility] COMPARISON: No previous studies available for comparison. INDICATIONS : Bilateral leg pain. MEDICAL HISTORY : Hypertension. Arthritis. Diabetes. Depression. Anxiety. Suicide attempt. SURGICAL HISTORY : Cholecystectomy. Left foot surgery. Finger tip amputation. ENCOUNTER: Initial ACUITY: 1 day PAIN SCORE: 4/10 LOCATION: Bilateral legs. TECHNIQUE: Venous ultrasound of the left and right leg was performed from the inguinal ligament to the proximal calf. Real-time, color Doppler and spectral tracing, compression and augmentation techniques were us ed. FINDINGS: RIGHT LEG: There is normal compressibility of the deep venous system from the inguinal region to the proximal ca lf. No echogenic clot is seen in the lumen of the common femoral, femoral, popliteal, and posterior tibial veins. There is a normal response of the venous system to proximal and distal augmentation an d respiration. LEFT LEG: There is normal compressibility of the deep venous system from the inguinal region to the proximal ca lf. No echogenic clot is seen in the lumen of the common femoral, femoral, popliteal, and posterior tibial veins. There is a normal response of the venous system to proximal and distal augmentation an d respiration. CONCLUSION: Normal examination. Elvis Beaver MD on April 28, 2016 at 13:53 Board Certified Radiologist. This report was verified electronically.
--- NOTE | 2016-04-28 14:40 | HHI.PR ---
Subjective Remarks Reconsult: Please return to eval pt for c/o leg pain Also follow up : DM Patient reports bilateral lower extremity pain she reports this has gotten, "worse as she gets older." No acute change. Patient complains of chronic left knee pain worse with weightbearing better with rest. Patient also reports pain in the right lower extremity from the middle of her back down the back of her leg to the ankle area. Again patient reports both of these pains have been going on for years and are just getting worse with age. Otherwise patient offers no complaints denies chest pain shortness of breath nausea vomiting diarrhea constipation fevers or chills. Ultrasound bilateral lower extremities negative for DVT Objective Vitals Vital Signs Date Time Temp Pulse Resp B/P Pulse Ox O2 Delivery O2 Flow Rate FiO2 04/28/16 05:25 97.7 65 17 107/71 04/28/16 02:08 98.0 80 18 122/88 99 04/27/16 19:09 97.1 82 16 120/62 99 I/O 04/27/16 04/27/16 04/27/16 04/28/16 04/28/16 04/28/16 07:00 15:00 23:00 07:00 15:00 23:00 Intake Total 0 ml 960 ml 1220 ml 840 ml 600 ml Balance 0 ml 960 ml 1220 ml 840 ml 600 ml Intake Oral 0 ml 960 ml 1220 ml 840 ml 600 ml # Voids 2 2 2 3 # Bowel Movements 0 Objective Remarks Not in distress, well-nourished, looks stated age EOMI, pink conjunctiva without injection, anicteric Nose without bleeding, airway patent, oropharynx clear Supple neck, no masses or thyromegaly, trachea midline Normal rate and regular rhythm, no murmurs gallops or rubs appreciated. Clear to auscultation and symmetric bilaterally, normal respiratory effort. Normal bowel sounds, soft, non-tender, nondistended, no guarding. pos flatus Extremities without clubbing, cyanosis, or edema. No rash of generalized distribution. Skin is warm and dry. Awake and alert, moves all 4 extremities, no focal neurologic deficits A/P Assessment and Plan Pleasant 75-year-old female patient currently inpatient psychiatric center we have been consulted for assistance with hypertension and diabetes mellitus. Patient is on Pradaxa reports some kind of heart rhythm problem in the past requiring pacemaker placement question atrial fibrillation. Continue lisinopril to 20mg BID atenolol and clonidine as needed. Monitor vital signs per protocol Diabetes mellitus. Continues to run high throughout the day 200+ a.m. glucose reading 93 Will increase Levemir to 20 units twice a day Accu-Cheks before meals at bedtime with sliding scale insulin coverage Diabetic diet Question atrial fibrillation history of cardiac arrhythmia requiring pacemaker on Pradaxa at home Will continue Pradaxa Constipation Continue bowel regimen Chronic bilateral lower extremity pain continue [place] 10 mg every 4 hours as needed for pain as well as Neurontin 600 mg by mouth daily at bedtime Left knee exam consistent with advanced osteoarthritis recommend outpatient orthopedic surgery consult after discharge DVT prophylaxis patient is ambulatory encouraged her to use her walker for ambulation Discussed with patient and RN Written by Roberta Medina, acting as scribe for Dr. Morales on 04/28/16 at 14:39. The documentation accurately reflects the work performed [id number] by me on at 14:39 Roberta Medina Apr 28, 2016 14:40 Leni Morales MD Apr 28, 2016 15:04
[2016-04-28 18:00] VITALS: BP 154/64; PULSE 64; RESP 16; TEMP 98.2; O2SAT 97
[2016-04-28 20:06] VITALS: BP 146/66; PULSE 66; RESP 20; TEMP 97.9; O2SAT 99
[2016-04-28] MEDS: INSULIN DETEMIR 100 UNITS/ML VIAL SQ SCH (21:00)
[2016-04-28] MEDS: MELATONIN 5 MG TAB PO SCH (21:00)
[2016-04-28] MEDS: ATORVASTATIN 20 MG TAB PO SCH (21:21)
[2016-04-28] MEDS: GABAPENTIN 300 MG CAP PO SCH (21:22)
[2016-04-29] MEDS: LORazepam 2 MG/ML VIAL IM PRN (00:30)
[2016-04-29] MEDS: ACETAMINOPHEN/HYDROcodone 325 MG/10 MG TAB PO PRN ×3 (00:38→20:54)
[2016-04-29] MEDS: BACITRACIN TOP OINT 15 GM TUBE TOP SCH ×3 (05:51→20:56)
[2016-04-29 06:00] VITALS: BP 108/53; PULSE 60; RESP 19; TEMP 98; O2SAT 98
[2016-04-29] MEDS: INSULIN ASPART SUPPLEMENTAL SCALE SQ SCH ×4 (06:25→20:52)
[2016-04-29] MEDS: FUROSEMIDE 20 MG TAB PO SCH (09:00)
[2016-04-29] MEDS: POLYETHYLENE GLYCOL 17 GM PKG PO SCH (09:00)
[2016-04-29] MEDS: INSULIN DETEMIR 100 UNITS/ML VIAL SQ SCH ×2 (09:00→20:51)
[2016-04-29] MEDS: PANTOPRAZOLE SOD 40 MG DELAYED RELEASE TAB PO SCH (09:00)
[2016-04-29] MEDS: LISINOPRIL 20 MG TAB PO SCH ×2 (09:00→20:52)
[2016-04-29] MEDS: NYSTATIN 100,000 U/GM PWD 15 GM BTL TOPICAL SCH ×2 (09:00→20:50)
[2016-04-29] MEDS: DABIGATRAN ETEXILATE 150 MG CAP PO SCH (09:00)
[2016-04-29] MEDS: ATENOLOL 25 MG TAB PO SCH (09:00)
[2016-04-29] MEDS: ISOSORBIDE MONONITRATE 30 MG TAB PO SCH (09:00)
[2016-04-29] MEDS: LORazepam 0.5 MG TAB PO PRN (14:33)
--- NOTE | 2016-04-29 15:56 | HHI.PYPN ---
Subjective Remarks Patient discussed with treatment team, seen on unit with nurse Meghna, chart reviewed, patient continues to show some increased volatility irritability perhaps related to the delays and placement and her feelings towards her brother 's rejection of her Review of Systems Except as stated in HPI: all other systems reviewed are Neg Objective Alert: Yes [place]: Person, Place (at least) Mood: Calm Affect: Blunted Memory Intact: Comment (Not assessed) Hallucinations: Other (No AVH) Delusions: No Delusion Type: Other (No delusions) Suicidal: Ideation (No SI voiced) Homicidal: Ideation (No HI) Insight/Judgement Very poor Vitals/IOs Vital Signs Date Time Temp Pulse Resp B/P Pulse Ox O2 Delivery O2 Flow Rate FiO2 04/29/16 06:00 98.0 60 19 108/53 98 Intake and Output 04/28/16 04/28/16 04/29/16 08:00 16:00 00:00 Intake Total 360 ml 800 ml 600 ml Balance 360 ml 800 ml 600 ml Assessment & Plan Problem List: (1) Adjustment disorder with mixed anxiety and depressed mood ICD Code: F43.23 (2) Lower extremity pain, bilateral ICD Code: M79.604 Assessment & Plan Estimated LOS: days patient continues labile, depressed and angry related to placement issues Justification for Cont. Inpt. At this time patient would decompensated placed a lower level of care Discharge Planning Be determined Request HC Surrog/Guard Advoc?: Felipe Kang MD Apr 29, 2016 15:56
[2016-04-29 19:33] VITALS: BP 159/70; PULSE 71; RESP 18; TEMP 98.4
[2016-04-29] MEDS: ATORVASTATIN 20 MG TAB PO SCH (20:52)
[2016-04-29] MEDS: MELATONIN 5 MG TAB PO SCH (20:52)
[2016-04-29] MEDS: GABAPENTIN 300 MG CAP PO SCH (20:52)
[2016-04-30 05:33] VITALS: BP 136/63; PULSE 75; RESP 18; TEMP 96.5; O2SAT 97
[2016-04-30] MEDS: BACITRACIN TOP OINT 15 GM TUBE TOP SCH ×3 (06:00→21:34)
[2016-04-30] MEDS: INSULIN ASPART SUPPLEMENTAL SCALE SQ SCH ×4 (06:07→21:33)
[2016-04-30] MEDS: ACETAMINOPHEN/HYDROcodone 325 MG/10 MG TAB PO PRN ×3 (06:14→21:49)
[2016-04-30] MEDS: DABIGATRAN ETEXILATE 150 MG CAP PO SCH (09:00)
[2016-04-30] MEDS: POLYETHYLENE GLYCOL 17 GM PKG PO SCH (10:17)
[2016-04-30] MEDS: PANTOPRAZOLE SOD 40 MG DELAYED RELEASE TAB PO SCH (10:17)
[2016-04-30] MEDS: LISINOPRIL 20 MG TAB PO SCH ×2 (10:17→21:33)
[2016-04-30] MEDS: ATENOLOL 25 MG TAB PO SCH (10:17)
[2016-04-30] MEDS: ISOSORBIDE MONONITRATE 30 MG TAB PO SCH (10:17)
[2016-04-30] MEDS: FUROSEMIDE 20 MG TAB PO SCH (10:17)
[2016-04-30] MEDS: NYSTATIN 100,000 U/GM PWD 15 GM BTL TOPICAL SCH ×2 (10:18→21:34)
[2016-04-30] MEDS: INSULIN DETEMIR 100 UNITS/ML VIAL SQ SCH ×2 (10:32→21:33)
--- NOTE | 2016-04-30 11:53 | HHI.PYPN ---
Subjective Remarks Patient seen in day room with nurse Khushboo, chart review, patient continues to cope with placement issues. Is not quite as labile today with me. Compliant medications. For now continue treatment Review of Systems Except as stated in HPI: all other systems reviewed are Neg Objective Alert: Yes [place]: Person, Place (at least) Mood: Calm Affect: Blunted Memory Intact: Comment (Not assessed) Hallucinations: Other (No AVH) Delusions: No Delusion Type: Other (No delusions) Suicidal: Ideation (No SI voiced) Homicidal: Ideation (No HI) Insight/Judgement Very poor Vitals/IOs Vital Signs Date Time Temp Pulse Resp B/P Pulse Ox O2 Delivery O2 Flow Rate FiO2 04/30/16 05:33 96.5 75 18 136/63 97 Intake and Output 04/29/16 04/29/16 04/29/16 07:59 15:59 23:59 Intake Total 240 ml 960 ml 1200 ml Balance 240 ml 960 ml 1200 ml Assessment & Plan Problem List: (1) Adjustment disorder with mixed anxiety and depressed mood ICD Code: F43.23 (2) Lower extremity pain, bilateral ICD Code: M79.604 Assessment & Plan Estimated LOS: days patient continues somewhat depressed and labile, compliant medications, Justification for Cont. Inpt. At this time patient would decompensated placed a lower level of care Discharge Planning To be determined Request HC Surrog/Guard Advoc?: No Felipe Ro MD Apr 30, 2016 11:53
--- NOTE | 2016-04-30 17:05 | HHI.PR ---
Subjective Remarks Follow-up visit DM. Patient seen today. States she is doing well. Discussed blood glucose monitoring results. Discussed use of metformin. Complaints of bilateral lower extremity with mild pain, nothing new, not getting worse. Denies SOB/ dyspnea. Denies chestpain, palpitations, headaches, dizziness. Denies fevers, chills, n/v/d. Objective Vitals Vital Signs Date Time Temp Pulse Resp B/P Pulse Ox O2 Delivery O2 Flow Rate FiO2 04/30/16 05:33 96.5 75 18 136/63 97 04/29/16 21:54 18 04/29/16 19:33 98.4 71 18 159/70 I/O 04/29/16 04/29/16 04/29/16 04/30/16 04/30/16 04/30/16 07:00 15:00 23:00 07:00 15:00 23:00 Intake Total 240 ml 960 ml 1200 ml 1560 ml Balance 240 ml 960 ml 1200 ml 1560 ml Intake Oral 240 ml 960 ml 1200 ml 1560 ml # Voids 3 3 3 2 2 # Bowel Movements 1 Imaging Last Impressions Lower Extremity Ultrasound 04/28/16 0000 Signed Impressions: Service Date/Time: Thursday, April 28, 2016 12:46 - CONCLUSION: Normal examination. Elvis Beaver MD Hip and Pelvis X-Ray 04/15/16 0000 Signed Impressions: Service Date/Time: Friday, April 15, 2016 09:15 - CONCLUSION: Osteopenia, negative for fracture. CT scanning would be more sensitive the patient remains symptomatic Dhiraj Jose MD FACR Objective Remarks GENERAL: This is a well-nourished, well-developed patient, in no apparent distress. HEENT: Normocephalic. Pupils equal round and reactive. Nose without bleeding. Airway patent. NECK: Trachea midline. No JVD. Supple. CARDIOVASCULAR: Regular rate and rhythm without murmurs, gallops, or rubs. RESPIRATORY: Bilateral upper lobe with rhonchi. Fair to good air exchange. No accessory muscle use GASTROINTESTINAL: Abdomen soft, non-tender, nondistended. Bowel Sounds normoactive x4. MUSCULOSKELETAL: Extremities without clubbing, cyanosis, race bilateral lower extremity edema. NEUROLOGICAL: Awake and alert. No focal neuro deficit. AYERS. Normal speech. A/P Problem List: (1) Lower extremity pain, bilateral ICD Code: M79.604 Status: Acute (2) Adjustment disorder with mixed anxiety and depressed mood ICD Code: F43.23 Status: Acute (3) DM (diabetes mellitus) ICD Code: E11.9 Status: Acute Assessment and Plan Pleasant 75-year-old female patient currently inpatient psychiatric center we have been consulted for assistance with hypertension and diabetes mellitus. Patient is on Pradaxa reports some kind of heart rhythm problem in the past requiring pacemaker placement question atrial fibrillation. Continue lisinopril to 20mg BID atenolol and clonidine as needed. Monitor vital signs per protocol Diabetes mellitus. Levemir to 20 units twice a day Accu-Cheks before meals at bedtime with sliding scale insulin coverage Diabetic diet. Start metformin 500 mg twice a day. Question atrial fibrillation history of cardiac arrhythmia requiring pacemaker on Pradaxa at home Will continue Pradaxa Constipation Continue bowel regimen Chronic bilateral lower extremity pain continue [place] 10 mg every 4 hours as needed for pain as well as Neurontin 600 mg by mouth daily at bedtime Left knee exam consistent with advanced osteoarthritis recommend outpatient orthopedic surgery consult after discharge DVT prophylaxis patient is ambulatory encouraged her to use her walker for ambulation Written by Vince Barrett, acting as scribe for Dr. Morales on 04/30/16 at 15: 54. The documentation accurately reflects the work performed [id number] by me on at 15:54. Vince Mtz Apr 30, 2016 17:05 Leni Morales MD Apr 30, 2016 17:20
[2016-04-30] MEDS: metFORMIN HCL 500 MG TAB PO SCH (18:00)
[2016-04-30] MEDS: ALUMINUM/MAGNESIUM/SIMETH 30 ML CUP PO PRN (18:16)
[2016-04-30 18:45] VITALS: BP 105/48; PULSE 60; RESP 17; TEMP 96.9; O2SAT 95
[2016-04-30] MEDS: MELATONIN 5 MG TAB PO SCH (21:32)
[2016-04-30] MEDS: GABAPENTIN 300 MG CAP PO SCH (21:32)
[2016-04-30] MEDS: ATORVASTATIN 20 MG TAB PO SCH (21:33)
[2016-04-30] MEDS: LORazepam 0.5 MG TAB PO PRN (21:48)
[2016-05-01] MEDS: ACETAMINOPHEN/HYDROcodone 325 MG/10 MG TAB PO PRN ×3 (02:40→17:19)
[2016-05-01 05:19] VITALS: BP 139/79; PULSE 60; RESP 15; TEMP 98.1; O2SAT 96
[2016-05-01] MEDS: INSULIN ASPART SUPPLEMENTAL SCALE SQ SCH ×4 (06:04→21:00)
[2016-05-01] MEDS: BACITRACIN TOP OINT 15 GM TUBE TOP SCH ×3 (06:05→21:11)
[2016-05-01] MEDS: LISINOPRIL 20 MG TAB PO SCH ×2 (09:00→21:11)
[2016-05-01] MEDS: NYSTATIN 100,000 U/GM PWD 15 GM BTL TOPICAL SCH ×2 (09:00→21:12)
[2016-05-01] MEDS: POLYETHYLENE GLYCOL 17 GM PKG PO SCH (09:00)
[2016-05-01] MEDS: INSULIN DETEMIR 100 UNITS/ML VIAL SQ SCH ×2 (09:00→21:12)
[2016-05-01] MEDS: PANTOPRAZOLE SOD 40 MG DELAYED RELEASE TAB PO SCH (09:40)
[2016-05-01] MEDS: ISOSORBIDE MONONITRATE 30 MG TAB PO SCH (09:40)
[2016-05-01] MEDS: ATENOLOL 25 MG TAB PO SCH (09:40)
[2016-05-01] MEDS: DABIGATRAN ETEXILATE 150 MG CAP PO SCH (09:40)
[2016-05-01] MEDS: FUROSEMIDE 20 MG TAB PO SCH (09:40)
[2016-05-01] MEDS: metFORMIN HCL 500 MG TAB PO SCH ×2 (09:40→17:58)
--- NOTE | 2016-05-01 10:02 | HHI.PYPN ---
Subjective Remarks Patient seen in day room with nurse Khushboo, patient continues somewhat anxious and nervous related to placement issues. Compliant medications. For now continue treatment Review of Systems Except as stated in HPI: all other systems reviewed are Neg Objective Alert: Yes [place]: Person, Place (at least) Mood: Calm Affect: Blunted Memory Intact: Comment (Not assessed) Hallucinations: Other (No AVH) Delusions: No Delusion Type: Other (No delusions) Suicidal: Ideation (No SI voiced) Homicidal: Ideation (No HI) Insight/Judgement Poor Vitals/IOs Vital Signs Date Time Temp Pulse Resp B/P Pulse Ox O2 Delivery O2 Flow Rate FiO2 05/01/16 05:19 98.1 60 15 139/79 96 Intake and Output 04/30/16 04/30/16 05/01/16 08:00 16:00 00:00 Intake Total 240 ml 1320 ml 360 ml Balance 240 ml 1320 ml 360 ml Assessment & Plan Problem List: (1) Adjustment disorder with mixed anxiety and depressed mood ICD Code: F43.23 (2) Lower extremity pain, bilateral ICD Code: M79.604 Assessment & Plan Estimated LOS: days patient continues anxious nervous and upset related to placement issues. Otherwise no significant behavioral problems Justification for Cont. Inpt. At this time patient will decompensate if placed in a lower level of care Discharge Planning To be determined Request HC Surrog/Guard Advoc?: No Felipe Ro MD May 01, 2016 10:02
[2016-05-01 18:00] VITALS: BP 118/58; PULSE 76; RESP 18; TEMP 97.7; O2SAT 97
[2016-05-01] MEDS: MELATONIN 5 MG TAB PO SCH ×2 (21:00→21:10)
[2016-05-01] MEDS: ATORVASTATIN 20 MG TAB PO SCH (21:10)
[2016-05-01] MEDS: GABAPENTIN 300 MG CAP PO SCH (21:10)
[2016-05-02] MEDS: ACETAMINOPHEN/HYDROcodone 325 MG/10 MG TAB PO PRN ×2 (00:40→20:09)
[2016-05-02] MEDS: BACITRACIN TOP OINT 15 GM TUBE TOP SCH ×3 (05:58→22:12)
[2016-05-02 06:00] VITALS: BP 121/62; PULSE 88; RESP 20; TEMP 98.5; O2SAT 98
[2016-05-02] MEDS: INSULIN ASPART SUPPLEMENTAL SCALE SQ SCH ×4 (06:15→20:07)
[2016-05-02 06:30] VITALS: BP 121/102; PULSE 88; RESP 20; TEMP 98.5; O2SAT 98
[2016-05-02 08:16] VITALS: BP 168/88; PULSE 87; RESP 17; TEMP 102; O2SAT 99
[2016-05-02] MEDS: FUROSEMIDE 20 MG TAB PO SCH (09:00)
[2016-05-02] MEDS: ISOSORBIDE MONONITRATE 30 MG TAB PO SCH (09:00)
[2016-05-02] MEDS: PANTOPRAZOLE SOD 40 MG DELAYED RELEASE TAB PO SCH (09:00)
[2016-05-02] MEDS: LISINOPRIL 20 MG TAB PO SCH ×2 (09:00→20:07)
[2016-05-02] MEDS: metFORMIN HCL 500 MG TAB PO SCH (09:00)
[2016-05-02] MEDS: DABIGATRAN ETEXILATE 150 MG CAP PO SCH (09:00)
[2016-05-02] MEDS: ATENOLOL 25 MG TAB PO SCH (09:00)
[2016-05-02] MEDS: POLYETHYLENE GLYCOL 17 GM PKG PO SCH (09:00)
[2016-05-02 09:34] LABS: BLOOD, URINE NEG (NEG); GLUCOSE,URINE NEG (NEG); HYALINE CAST, URINE 2 /lpf (RARE); KETONE, URINE NEG (NEG); MUCUS URINE FEW /lpf (OCC); NITRITE,URINE NEG (NEG); PH, URINE 5.5 (5.0-8.5); SQUAMOUS EPITHELIAL CELL URINE <1 /hpf (0-5); URINE COLOR YELLOW (YELLW/STRAW)
[2016-05-02 09:35] LABS: COMMENT (UR) CATH-CULT NOT IND; CULTURE IF INDICATED CATH CULTURE NOT IND
--- NOTE | 2016-05-02 10:00 | EKG ---
Date Performed: 05/02/2016 Time Performed: 09:44:29 PTAGE: 75 years EKG: Sinus rhythm NORMAL ECG NO PREVIOUS TRACING DOCTOR: Ran Vargas Interpretating Date/Time 05/02/2016 09:59:41
[2016-05-02 10:03] LABS: BASOPHIL # 0.1 TH/MM3 (0-0.2); BASOPHIL % 0.2 % (0.0-2.0); LYMPHOCYTE # 0.9 TH/MM3 (1.0-4.8); MEAN CELL VOLUME 86.1 FL (80.0-100.0); MEAN CORPUSCULAR HGB CONC 32.6 % (32.0-36.0); MONO % 3.7 % (0.0-8.0); NEUT % 93.1 % (16.0-70.0); PLATELET COUNT 272 TH/MM3 (150-450); RED BLOOD COUNT 3.83 MIL/MM3 (4.00-5.30); RED CELL DISTRIBUTION WIDTH 14.9 % (11.6-17.2); WHITE BLOOD COUNT 30.1 TH/MM3 (4.0-11.0)
--- NOTE | 2016-05-02 10:05 | RADRPT ---
EXAM DATE/TIME: 05/02/2016 09:21 [facility] COMPARISON: No previous studies available for comparison. INDICATIONS : Fever. MEDICAL HISTORY : None. SURGICAL HISTORY : Pacemaker. ENCOUNTER: Initial ACUITY: 4 - 6 days PAIN SCORE: Non-responsive. LOCATION: Bilateral chest FINDINGS: A single view of the chest demonstrates pacer lead overlying right atrium and right ventricle. Basila r density most characteristic of atelectasis. No effusion. No pneumothorax. CONCLUSION: 1. Minimal basilar atelectasis. Pacer leads in right atrium and right ventricle. Jean Claude Yip MD on May 02, 2016 at 10:02 Board Certified Radiologist. This report was verified electronically.
[2016-05-02] MEDS: INSULIN DETEMIR 100 UNITS/ML VIAL SQ SCH ×2 (10:06→20:07)
[2016-05-02 10:07] LABS: HEMO FLAGS AUTO DIFF
[2016-05-02 10:12] VITALS: BP 113/61; PULSE 75; RESP 14; TEMP 100; O2SAT 99
[2016-05-02 10:16] LABS: ANION GAP 11 MEQ/L (5-15); AST (GOT) 14 U/L (15-37); BICARBONATE 23.1 MEQ/L (21.0-32.0); BLOOD UREA NITROGEN 46 MG/DL (7-18); CHLORIDE 101 MEQ/L (98-107); GLOMERULAR FILTRATION RATE 30 ML/MIN (>89); POTASSIUM 4.2 MEQ/L (3.5-5.1); SODIUM (NA) 135 MEQ/L (136-145)
[2016-05-02] MEDS: NYSTATIN 100,000 U/GM PWD 15 GM BTL TOPICAL SCH ×2 (10:22→22:12)
[2016-05-02 10:32] LABS: ALT (GPT) 19 U/L (10-53); TOTAL BILIRUBIN ADULT 0.8 MG/DL (0.2-1.0)
[2016-05-02 10:34] LABS: ALKALINE PHOSPHATASE 118 U/L (45-117)
[2016-05-02 10:41] LABS: BANDS 2 % (0-6); BASOPHILS 1 % (0-2); NEUTROPHIL # MANUAL DIFF 28.6 TH/MM3 (1.8-7.7); PLATELET ESTIMATE SMEAR NORMAL (NORMAL); PLATELET MORPHOLOGY NORMAL (NORMAL); POLYS (SEG NEUTROPHILS) 93 % (16-70); WBC DIFF SAMPLE 100
[2016-05-02 10:42] LABS: SCAN/DIFF FINAL DIFF MANUAL
--- NOTE | 2016-05-02 11:19 | HHI.PYPN ---
Subjective Remarks Patient seen this morning with nurse Kellie, patient's level of consciousness is markedly decreased, she was noted to be quite febrile with temperature 102, responding basically to tactile stimulation only her vital signs or acceptable, stat blood work was ordered portable chest x-ray was ordered and an EKG was ordered. What blood cell count was over 30,000 urinalysis was clear, chest x- ray showed small atelectasis in the base and her pacemaker. EKG was no significant changes. Patient did respond to some cooling cloths. Making some vague auditory responses. We did call first to consult the hospitalist Dr. Morales is on his way down. For now we'll continue to monitor the patient closely Review of Systems Other Please see changes status as mentioned above under subjective Objective Alert: No [place]: Situation (patient showed marked decreased level of consciousness) Mood: Other (difficult to ascertain due to patient's level of consciousness) Affect: Other (difficult to ascertain due to patient's level of consciousness) Memory Intact: Comment (difficult to ascertain due to patient's level of consciousness) Hallucinations: Other (difficult to ascertain due to patient's level of consciousness) Delusions: No Delusion Type: Other (difficult to ascertain due to patient's level of consciousness) Suicidal: Ideation (difficult to ascertain due to patient's level of consciousness) Homicidal: Ideation (difficult to ascertain due to patient's level of consciousness) Insight/Judgement Very poor Labs Test 05/02/16 05/02/16 08:50 09:44 Urine Color YELLOW Urine Turbidity HAZY Urine pH 5.5 Urine Specific [place] 1.013 Urine Protein NEG mg/dL Urine Glucose (UA) NEG mg/dL Urine Ketones NEG mg/dL Urine Occult Blood NEG Urine Nitrite NEG Urine Bilirubin NEG Urine Urobilinogen LESS THAN 2.0 MG/DL Urine Leukocyte Esterase NEG Urine WBC 1 /hpf Urine Squamous Epithelial <1 /hpf Cells Urine Hyaline Casts 2 /lpf Urine Mucus FEW /lpf Microscopic Urinalysis Comment CATH-CULT NOT IND White Blood Count 30.1 TH/MM3 Red Blood Count 3.83 MIL/MM3 Hemoglobin 10.7 GM/DL Hematocrit 33.0 % Mean Corpuscular Volume 86.1 FL Mean Corpuscular Hemoglobin 28.0 PG Mean Corpuscular Hemoglobin 32.6 % Concent Red Cell Distribution Width 14.9 % Platelet Count 272 TH/MM3 Mean Platelet Volume 8.5 FL Neutrophils (%) (Auto) 93.1 % Lymphocytes (%) (Auto) 3.0 % Monocytes (%) (Auto) 3.7 % Eosinophils (%) (Auto) 0.0 % Basophils (%) (Auto) 0.2 % Neutrophils # (Auto) 28.0 TH/MM3 Lymphocytes # (Auto) 0.9 TH/MM3 Monocytes # (Auto) 1.1 TH/MM3 Eosinophils # (Auto) 0.0 TH/MM3 Basophils # (Auto) 0.1 TH/MM3 CBC Comment AUTO DIFF Differential Total Cells 100 Counted Neutrophils % (Manual) 93 % Band Neutrophils % 2 % Lymphocytes % 3 % Monocytes % 1 % Basophils % 1 % Neutrophils # (Manual) 28.6 TH/MM3 Differential Comment FINAL DIFF MANUAL Platelet Estimate NORMAL Platelet Morphology Comment NORMAL Red Cell Morphology Comment NORMAL Sodium Level 135 MEQ/L Potassium Level 4.2 MEQ/L Chloride Level 101 MEQ/L Carbon Dioxide Level 23.1 MEQ/L Anion Gap 11 MEQ/L Blood Urea Nitrogen 46 MG/DL Creatinine 1.66 MG/DL Estimat Glomerular Filtration 30 ML/MIN Rate Random Glucose 200 MG/DL Calcium Level 9.0 MG/DL Total Bilirubin 0.8 MG/DL Aspartate Amino Transf 14 U/L (AST/SGOT) Alanine Aminotransferase 19 U/L (ALT/SGPT) Alkaline Phosphatase 118 U/L Total Protein 7.0 GM/DL Albumin 3.4 GM/DL Vitals/IOs Vital Signs Date Time Temp Pulse Resp B/P Pulse Ox O2 Delivery O2 Flow Rate FiO2 05/02/16 10:12 100.0 75 14 113/61 99 Intake and Output 05/01/16 05/01/16 05/01/16 07:59 15:59 23:59 Intake Total 1080 ml 0 ml Balance 1080 ml 0 ml Assessment & Plan Problem List: (1) Adjustment disorder with mixed anxiety and depressed mood ICD Code: F43.23 (2) Lower extremity pain, bilateral ICD Code: M79.604 Assessment & Plan Estimated LOS: days patient showing significant change in level of consciousness and presentation. Labs (x-ray done EKG done hospitalist has been notified and will assess patient Justification for Cont. Inpt. At this time patient will more complete medical examination by hospitalist Discharge Planning To be determined Request HC Surrog/Guard Advoc?: No Felipe Ro MD May 02, 2016 11:19
[2016-05-02] MEDS ORDERED: VANCOMYCIN INJ 1,250 MG in SODIUM CHLOR 0.9% 250 ML INJ 250 ML IV ONE (12:15)
[2016-05-02] MEDS: SODIUM CHLOR 0.9% 1000 ML INJ 1,000 ML IV SCH ×2 (12:15→18:06)
[2016-05-02] MEDS ORDERED: Vancomycin Consult Pharmacy 1 EA OTHER SCH (12:15)
[2016-05-02 13:30] VITALS: BP 149/68; PULSE 77; RESP 17; TEMP 100.1; O2SAT 99
--- NOTE | 2016-05-02 14:58 | HHI.PR ---
Subjective Remarks Follow up visit lethargy, febrile. Pt. seen today. She is reported to be febrile this morning, temp 103. Increasingly lethargic not eating. Upon exam, pt. continues to be lethargic, not answering questions or following commands. Opens eyes to name call but otherwise, non verbal. Objective Vitals Vital Signs Date Time Temp Pulse Resp B/P Pulse Ox O2 Delivery O2 Flow Rate FiO2 05/02/16 10:12 100.0 75 14 113/61 99 05/02/16 08:16 102.0 87 17 168/88 99 05/02/16 06:30 98.5 88 20 121/102 98 05/02/16 06:00 98.5 88 20 121/62 98 05/01/16 18:00 97.7 76 18 118/58 97 I/O 05/01/16 05/01/16 05/01/16 05/02/16 05/02/16 05/02/16 06:59 14:59 22:59 06:59 14:59 22:59 Intake Total 1080 ml 0 ml 120 ml 480 ml Balance 1080 ml 0 ml 120 ml 480 ml Intake Oral 1080 ml 0 ml 120 ml 480 ml # Voids 3 1 2 # Bowel Movements 1 Result Diagram: 05/02/16 0944 05/02/16 0944 Imaging Last Impressions Chest X-Ray 05/02/16 0000 Signed Impressions: Service Date/Time: April 09:21 - CONCLUSION: 1. Minimal basilar atelectasis. Pacer leads in right atrium and right ventricle. Jean Claude Yip MD Lower Extremity Ultrasound 04/28/16 0000 Signed Impressions: Service Date/Time: Thursday, April 28, 2016 12:46 - CONCLUSION: Normal examination. Elvis Beaver MD Hip and Pelvis X-Ray 04/15/16 0000 Signed Impressions: Service Date/Time: Friday, April 15, 2016 09:15 - CONCLUSION: Osteopenia, negative for fracture. CT scanning would be more sensitive the patient remains symptomatic Dhiraj Jose MD FACR Objective Remarks GENERAL: This is a well-nourished, well-developed patient, in no apparent distress. HEENT: Normocephalic. Pupils equal round and reactive. Nose without bleeding. Airway patent. NECK: Trachea midline. No JVD. Supple. CARDIOVASCULAR: Regular rate and rhythm without murmurs, gallops, or rubs. RESPIRATORY: Bilateral upper lobe with rhonchi. Fair to good air exchange. GASTROINTESTINAL: Abdomen soft, non-tender, nondistended. Bowel Sounds normoactive x4. MUSCULOSKELETAL: Extremities without clubbing, cyanosis, race bilateral lower extremity edema. NEUROLOGICAL: Awake and alert. No focal neuro deficit. AYERS. Normal speech. A/P Problem List: (1) Lower extremity pain, bilateral ICD Code: M79.604 Status: Acute (2) Adjustment disorder with mixed anxiety and depressed mood ICD Code: F43.23 Status: Acute (3) DM (diabetes mellitus) ICD Code: E11.9 Status: Acute Assessment and Plan Pleasant 75-year-old female patient currently inpatient psychiatric center we have been consulted for assistance with hypertension and diabetes mellitus. Patient is on Pradaxa reports some kind of heart rhythm problem in the past requiring pacemaker placement question atrial fibrillation. Encephalopathy - probably secondary to sepsis SIRS, Sepsis - elevated WBC 30.1, febrile at 102, unknown source for now, ? PPM involvement - UA negative, CXR unremarkable - BC Pending - Start IV Vanco and Zosyn. IVF NS 150 ML's an hour - ID Consult. Discussed with Dr. Cain - CT Abd/pelvis stat pending, place NG tube for oral contrast. Lactic acid pending. - Repeat CBC, BMP Continue lisinopril to 20mg BID atenolol and clonidine as needed. Monitor vital signs per protocol Diabetes mellitus. Levemir to 20 units twice a day Accu-Cheks before meals at bedtime with sliding scale insulin coverage Diabetic diet. - Hold metformin 500 mg twice a day. Hold Levemir if patient is not getting by mouth diet Question atrial fibrillation history of cardiac arrhythmia requiring pacemaker on Pradaxa at home Will continue Pradaxa Constipation Continue bowel regimen Chronic bilateral lower extremity pain continue [place] 10 mg every 4 hours as needed for pain as well as Neurontin 600 mg by mouth daily at bedtime Left knee exam consistent with advanced osteoarthritis recommend outpatient orthopedic surgery consult after discharge DVT prophylaxis pradaxa Written by Vince Barrett, acting as scribe for Dr. Mace on 05/02/16 at 16:06. The documentation accurately reflects the work performed [id number] by me on at 16:06. Vince MtzP May 02, 2016 2:58 pm Diana aMce DO May 02, 2016 6:03 pm
[2016-05-02] MEDS ORDERED: VANCOMYCIN INJ 1,500 MG in SODIUM CHLORID 0.9% 500 ML INJ 500 ML IV ONE (15:00)
[2016-05-02] MEDS: PIPERACIL-TAZO 3.375 GM PREMIX 50 ML IV SCH ×2 (16:00→22:00)
[2016-05-02] MEDS ORDERED: DIATRIZOATE MEGLUM/DIATRIZOATE SOD 9 ML CUP PO ONE (16:45)
--- NOTE | 2016-05-02 19:25 | RADRPT ---
EXAM DATE/TIME: 05/02/2016 19:03 [facility] COMPARISON: No previous studies available for comparison. INDICATIONS : Diffuse abdomen pain ORAL CONTRAST: Patient refused oral contrast. RADIATION DOSE: 15.64 CTDIvol (mGy) MEDICAL HISTORY : Non-responsive. SURGICAL HISTORY : Non-responsive. ENCOUNTER: Initial ACUITY: 1 day PAIN SCALE: 10/10 LOCATION: abdomen TECHNIQUE: Volumetric scanning of the abdomen and pelvis was performed. Using automated exposure control and ad justment of the mA and/or kV according to patient size, radiation dose was kept as low as reasonably achievable to obtain optimal diagnostic quality images. FINDINGS: Noncontrast appearance of the liver, spleen, pancreas and adrenal glands within normal limits. No acu te abnormality seen of either kidney. There is bilateral renal vascular calcification. Dense atherosc lerotic plaque seen of the abdominal aorta and iliac arteries without aneurysm. There is a large amount of stool in the colon, especially the rectum. Nonobstructive pattern. I don't see any inflammatory changes. No free fluid or free air. Urinary bladder is moderately distended at the time of imaging and please correlate clinically. Anterior abdominal wall defect measuring about 2.6 cm across seen at the level of the umbilicus. This contains fat only. Severe multilevel degenerative changes are seen of the lumbar spine. I don't see an acute bony abnorm ality. Visualized lung bases are clear. CONCLUSION: 1. Large stool in the rectum. Nonobstructive pattern. No inflammatory changes. 2. Severe atherosclerosis of the abdominal aorta and branch vessels. No aneurysm. 3. Distended urinary bladder at the time of imaging and please correlate clinically. 4. Severe lumbar spine degenerative changes. No acute bony abnormality seen. 5. Fat-containing umbilical hernia. Felipe Mckinnon MD on May 02, 2016 at 19:19 Board Certified Radiologist. This report was verified electronically.
--- NOTE | 2016-05-02 19:27 | RADRPT ---
EXAM DATE/TIME: 05/02/2016 19:03 [facility] COMPARISON: CT ABDOMEN & PELVIS W/O CONTRAST, May 02, 2016, 19:03. INDICATIONS : Trauma, fall two weeks ago. ORAL CONTRAST: No oral contrast ingested. RADIATION DOSE: CTDIvol (mGy) ; Reconstructed from previous dataset MEDICAL HISTORY : Non-responsive. SURGICAL HISTORY : Non-responsive. ENCOUNTER: Initial ACUITY: 2 weeks PAIN SCALE: 10/10 LOCATION: pelvis TECHNIQUE: Volumetric scanning of the pelvis was performed. Using automated exposure control and adjustment of the mA and/or kV according to patient size, radiation dose was kept as low as reasonably achievable t o obtain optimal diagnostic quality images. FINDINGS: The bony pelvis is intact and has normal morphology. Mild degenerative changes are seen of the hips a nd sacroiliac joints. No hematoma or other fluid collection. CONCLUSION: Intact pelvis. Felipe Mckinnon MD on May 02, 2016 at 19:24 Board Certified Radiologist. This report was verified electronically.
--- NOTE | 2016-05-02 19:28 | RADRPT ---
EXAM DATE/TIME: 05/02/2016 19:03 [facility] COMPARISON: No previous studies available for comparison. INDICATIONS : Trauma, fall two weeks ago. RADIATION DOSE: CTDIvol (mGy) ; Reconstructed from previous dataset MEDICAL HISTORY : Non-responsive. SURGICAL HISTORY : Non-responsive. ENCOUNTER: Initial ACUITY: 2 weeks PAIN SCALE: 10/10 LOCATION: Right hip TECHNIQUE: Volumetric scanning of the hip was performed. Using automated exposure control and adjustment of the mA and/or kV according to patient size, radiation dose was kept as low as reasonably achievable to o btain optimal diagnostic quality images. FINDINGS: BONES: No evidence of fracture. Alignment is within normal limits. JOINTS: No evidence of joint narrowing or effusion. SOFT TISSUES: Muscles, tendons and neurovascular structures are grossly unremarkable. No evidence of mass, organize d fluid collection, or foreign body. Severe atherosclerotic plaque seen of the femoral artery. CONCLUSION: Intact right hip. Felipe Mckinnon MD on May 02, 2016 at 19:26 Board Certified Radiologist. This report was verified electronically.
[2016-05-02 19:41] VITALS: BP 122/59; PULSE 77; RESP 18; TEMP 99.7; O2SAT 94
[2016-05-02] MEDS: ATORVASTATIN 20 MG TAB PO SCH (20:07)
--- NOTE | 2016-05-02 22:02 | PD.ID.CON ---
History of Present Illness Service ID Consult Requested By Dr Paty Barrett Reason for Consult leukoctytosis Primary Care Physician Unknown Diagnoses: History of Present Illness 75 yo female, too lethargic for providing history was transferred from psych unit where she waa treated for depression with progressive lethargy, leukocytosis of 30 K and fever x 1 day Pt ' creatinine doubled from baseline No diarrhea, wets diapers Urinalysis was unremarkable CT showed large amount of stool and distended bladder She has lactic acidemia Broad spectrum abx started Review of Systems ROS Limitations: Altered Mental Status Past Family Social History Allergies: Coded Allergies: Morphine (Verified Allergy, Intermediate, 04/10/16) Penicillin (Verified Allergy, Intermediate, HIVES, 04/10/16) Past Medical History hypertension, diabetes mellitus insulin-dependent, GERD and prior cardiac arrhythmia requiring pacemaker placement Past Surgical History Cholecystectomy, pacemaker placement Active Ordered Medications Medications where reviewed in EMR Antibiotics Include: zosun vancomycin Family History Non-Contributory. Social History No Tobacco. No ETOH. No Illicit Drugs. Physical Exam Vital Signs Vital Signs Date Time Temp Pulse Resp B/P Pulse Ox O2 Delivery O2 Flow Rate FiO2 05/02/16 19:41 99.7 77 18 122/59 94 05/02/16 13:30 100.1 77 17 149/68 99 05/02/16 10:12 100.0 75 14 113/61 99 05/02/16 08:16 102.0 87 17 168/88 99 05/02/16 06:30 98.5 88 20 121/102 98 05/02/16 06:00 98.5 88 20 121/62 98 Physical Exam CONSTITUTIONAL/GENERAL: This is an morbidly obese patient, in no apparent distress. Lethargic alsmost obtunded SKIN: No jaundice, rashes, or lesions. Skin temperature appropriate. Not diaphoretic. HEAD: Atraumatic. Normocephalic. EYES: Pupils equal and round and reactive. Extraocular motions intact. No scleral icterus. No injection or drainage. Fundi not examined. ENT: Nose without bleeding or purulent drainage. Oral mucosae without visible erythema, exudates, masses, or lesions. Edentulous NECK: Trachea midline. Supple, nontender. . CARDIOVASCULAR: Regular rate and rhythm without murmurs, gallops, or rubs. No JVD. Peripheral pulses symmetric. Pacer in place L chest, no skin changes over the device RESPIRATORY/CHEST: Symmetric, unlabored respirations. Clear to auscultation. Breath sounds equal bilaterally. No wheezes, rales, or rhonchi. GASTROINTESTINAL: Abdomen soft, diffusely tender to palpation (moans) , nondistended. No hepato-splenomegaly, or palpable masses. No guarding. Bowel sounds present. GENITOURINARY: Without palpable bladder distension. . MUSCULOSKELETAL: Extremities without clubbing, cyanosis, or edema. No joint tenderness or effusion noted. No calf tenderness. No mottling or clubbing. LYMPHATICS: No palpable cervical or supraclavicular adenopathy. NEUROLOGICAL: Lethargic to obtunded. Motor and sensory grossly within normal limits. Follows commands. . Moves all extremities. PSYCHIATRIC: unable ian assess Laboratory Laboratory Tests Test 05/02/16 05/02/16 05/02/16 08:50 09:44 20:30 Urine Color YELLOW Urine Turbidity HAZY Urine pH 5.5 Urine Specific [place] 1.013 Urine Protein NEG Urine Glucose (UA) NEG Urine Ketones NEG Urine Occult Blood NEG Urine Nitrite NEG Urine Bilirubin NEG Urine Urobilinogen LESS THAN 2.0 Urine Leukocyte Esterase NEG Urine WBC 1 Urine Squamous Epithelial <1 Cells Urine Hyaline Casts 2 Urine Mucus FEW Microscopic Urinalysis Comment CATH-CULT NOT IND White Blood Count 30.1 Red Blood Count 3.83 Hemoglobin 10.7 Hematocrit 33.0 Mean Corpuscular Volume 86.1 Mean Corpuscular Hemoglobin 28.0 Mean Corpuscular Hemoglobin 32.6 Concent Red Cell Distribution Width 14.9 Platelet Count 272 Mean Platelet Volume 8.5 Neutrophils (%) (Auto) 93.1 Lymphocytes (%) (Auto) 3.0 Monocytes (%) (Auto) 3.7 Eosinophils (%) (Auto) 0.0 Basophils (%) (Auto) 0.2 Neutrophils # (Auto) 28.0 Lymphocytes # (Auto) 0.9 Monocytes # (Auto) 1.1 Eosinophils # (Auto) 0.0 Basophils # (Auto) 0.1 CBC Comment AUTO DIFF Differential Total Cells 100 Counted Neutrophils % (Manual) 93 Band Neutrophils % 2 Lymphocytes % 3 Monocytes % 1 Basophils % 1 Neutrophils # (Manual) 28.6 Differential Comment FINAL DIFF MANUAL Platelet Estimate NORMAL Platelet Morphology Comment NORMAL Red Cell Morphology Comment NORMAL Sodium Level 135 Potassium Level 4.2 Chloride Level 101 Carbon Dioxide Level 23.1 Anion Gap 11 Blood Urea Nitrogen 46 Creatinine 1.66 Estimat Glomerular Filtration 30 Rate Random Glucose 200 Calcium Level 9.0 Total Bilirubin 0.8 Aspartate Amino Transf 14 (AST/SGOT) Alanine Aminotransferase 19 (ALT/SGPT) Alkaline Phosphatase 118 Total Protein 7.0 Albumin 3.4 Lactic Acid Level 2.7 Lipase 31 Date/Time Procedure Status Source Growth 05/02/16 20:30 Aerobic Blood Culture Received Blood Peripheral Pending 05/02/16 20:30 Anaerobic Blood Culture Received Blood Peripheral Pending Result Diagram: 05/02/16 0944 05/02/16 0944 Imaging Last Impressions Abdomen/Pelvis CT 05/02/16 1615 Signed Impressions: Service Date/Time: April 19:03 - CONCLUSION: 1. Large stool in the rectum. Nonobstructive pattern. No inflammatory changes. 2. Severe atherosclerosis of the abdominal aorta and branch vessels. No aneurysm. 3. Distended urinary bladder at the time of imaging and please correlate clinically. 4. Severe lumbar spine degenerative changes. No acute bony abnormality seen. 5. Fat-containing umbilical hernia. Felipe Mckinnon MD Pelvis CT 05/02/16 0000 Signed Impressions: Service Date/Time: April 19:03 - CONCLUSION: Intact pelvis. Felipe Mckinnon MD Lower Extremity CT 05/02/16 0000 Signed Impressions: Service Date/Time: April 19:03 - CONCLUSION: Intact right hip. Felipe Mckinnon MD Chest X-Ray 05/02/16 0000 Signed Impressions: Service Date/Time: April 09:21 - CONCLUSION: 1. Minimal basilar atelectasis. Pacer leads in right atrium and right ventricle. Jean Claude Yip MD Lower Extremity Ultrasound 04/28/16 0000 Signed Impressions: Service Date/Time: Thursday, April 28, 2016 12:46 - CONCLUSION: Normal examination. Elvis Beaver MD Hip and Pelvis X-Ray 04/15/16 0000 Signed Impressions: Service Date/Time: Friday, April 15, 2016 09:15 - CONCLUSION: Osteopenia, negative for fracture. CT scanning would be more sensitive the patient remains symptomatic Dhiraj Jose MD FACR Assessment and Plan Assessment and Plan Sepsis - CT with large amount of sttol and distended bladder - soruce is likely vs GI Lactic acidoss Leukocytoss and fever admtted for depression Rec's: cont zosyn, vancomycin chck stool for C.diff Discussed Condition With Leah Caal MD May 02, 2016 22:01
[2016-05-02] MEDS: MELATONIN 5 MG TAB PO SCH (22:12)
[2016-05-02] MEDS: GABAPENTIN 300 MG CAP PO SCH (22:12)
[2016-05-03] MEDS: SODIUM CHLOR 0.9% 1000 ML INJ 1,000 ML IV SCH ×4 (01:19→22:53)
[2016-05-03 02:49] VITALS: BP 104/46; PULSE 71; TEMP 97.6; O2SAT 97
[2016-05-03] MEDS: PIPERACIL-TAZO 3.375 GM PREMIX 50 ML IV SCH ×3 (04:00→15:35)
[2016-05-03] MEDS: ACETAMINOPHEN/HYDROcodone 325 MG/10 MG TAB PO PRN ×3 (04:16→20:11)
[2016-05-03 05:41] VITALS: BP 93/54; PULSE 64; RESP 17; TEMP 97.6; O2SAT 99
[2016-05-03 05:53] LABS: BICARBONATE 20.1 MEQ/L (21.0-32.0); INDIRECT BILIRUBIN 0.4 MG/DL (0.0-0.8); POTASSIUM 4.2 MEQ/L (3.5-5.1); TOTAL BILIRUBIN ADULT 0.5 MG/DL (0.2-1.0)
[2016-05-03] MEDS: BACITRACIN TOP OINT 15 GM TUBE TOP SCH ×3 (06:00→21:07)
[2016-05-03] MEDS: INSULIN ASPART SUPPLEMENTAL SCALE SQ SCH ×4 (06:41→20:18)
[2016-05-03 06:42] LABS: AUTOMATED NEUTROPHIL # 24.7 TH/MM3 (1.8-7.7); BASOPHIL # 0.1 TH/MM3 (0-0.2); BASOPHIL % 0.5 % (0.0-2.0); EOSINOPHIL # 0.1 TH/MM3 (0-0.4); EOSINOPHIL % 0.2 % (0.0-4.0); HEMATOCRIT 29.6 % (35.0-46.0); LYMPH % 5.4 % (9.0-44.0); LYMPHOCYTE # 1.5 TH/MM3 (1.0-4.8); MEAN CELL VOLUME 85.3 FL (80.0-100.0); MEAN CORPUSCULAR HEMOGLOBIN 28.8 PG (27.0-34.0); MEAN CORPUSCULAR HGB CONC 33.7 % (32.0-36.0); MONO % 6.2 % (0.0-8.0); NEUT % 87.7 % (16.0-70.0); PLATELET COUNT 178 TH/MM3 (150-450); RED BLOOD COUNT 3.47 MIL/MM3 (4.00-5.30); RED CELL DISTRIBUTION WIDTH 15.4 % (11.6-17.2); WHITE BLOOD COUNT 28.2 TH/MM3 (4.0-11.0)
[2016-05-03 06:43] LABS: HEMO FLAGS AUTO DIFF
[2016-05-03 07:04] LABS: BANDS 20 % (0-6); NEUTROPHIL # MANUAL DIFF 26.5 TH/MM3 (1.8-7.7); POLYS (SEG NEUTROPHILS) 74 % (16-70); WBC DIFF SAMPLE 100
[2016-05-03 07:06] LABS: PLATELET ESTIMATE SMEAR NORMAL (NORMAL); PLATELET MORPHOLOGY NORMAL (NORMAL); SCAN/DIFF FINAL DIFF MANUAL
[2016-05-03] MEDS: LISINOPRIL 20 MG TAB PO SCH ×2 (08:23→20:18)
[2016-05-03] MEDS: NYSTATIN 100,000 U/GM PWD 15 GM BTL TOPICAL SCH ×2 (08:23→20:19)
[2016-05-03] MEDS: INSULIN DETEMIR 100 UNITS/ML VIAL SQ SCH ×2 (08:24→20:18)
[2016-05-03] MEDS: PANTOPRAZOLE SOD 40 MG DELAYED RELEASE TAB PO SCH (09:00)
[2016-05-03] MEDS: ISOSORBIDE MONONITRATE 30 MG TAB PO SCH (09:00)
[2016-05-03] MEDS ORDERED: MAGNESIUM HYDROXIDE SUSP 30 ML CUP PO PRN (09:30)
[2016-05-03] MEDS ORDERED: SOD PHOSPHATE/SOD BIPHOSPHATE (ADULT) ENEMA 133ML PR PRN (09:30)
[2016-05-03] MEDS ORDERED: ONDANSETRON HCL 4 MG/2 ML VIAL IV PUSH PRN (09:30)
[2016-05-03] MEDS: ONDANSETRON HCL 4 MG/2 ML VIAL IV PUSH PRN ×2 (09:51→15:31)
[2016-05-03] MEDS: POLYETHYLENE GLYCOL 17 GM PKG PO SCH (10:34)
[2016-05-03] MEDS: DABIGATRAN ETEXILATE 150 MG CAP PO SCH (10:35)
[2016-05-03] MEDS: FUROSEMIDE 20 MG TAB PO SCH (10:35)
[2016-05-03] MEDS: ATENOLOL 25 MG TAB PO SCH (10:35)
--- NOTE | 2016-05-03 11:06 | HHI.PR ---
Subjective Remarks Follow-up visit sepsis, febrile illness. Patient seen today. More awake, alert , very responsive. She was started on Vanco, Zosyn yesterday. Complaints of nausea, and heartburn. States that she usually takes Protonix before meals however it was given to her after breakfast. Reports she has urinary retention even before hospital admission. Patient did not have any bowel movements overnight. Afebrile today. As per RN, no acute issues overnight. Patient continues to complain of right hip pain, radiating to the back, described as burning sharp intermittent pain, reports that this is chronic has been going on for years. Otherwise, denies shortness of breath/dyspnea, chest pain, palpitations, headaches, diarrhea. Objective Vitals Vital Signs Date Time Temp Pulse Resp B/P Pulse Ox O2 Delivery O2 Flow Rate FiO2 05/03/16 05:41 97.6 64 17 93/54 99 05/03/16 02:49 97.6 71 104/46 97 05/02/16 19:41 99.7 77 18 122/59 94 05/02/16 13:30 100.1 77 17 149/68 99 I/O 05/02/16 05/02/16 05/02/16 05/03/16 05/03/16 05/03/16 07:00 15:00 23:00 07:00 15:00 23:00 Intake Total 120 ml 480 ml 960 ml 1440 ml Balance 120 ml 480 ml 960 ml 1440 ml Intake Oral 120 ml 480 ml 960 ml 240 ml IV Total 1200 ml # Voids 2 1 # Bowel Movements 1 1 Result Diagram: 05/03/16 0455 05/03/16 0455 Imaging Last Impressions Abdomen/Pelvis CT 05/02/16 1615 Signed Impressions: Service Date/Time: April 19:03 - CONCLUSION: 1. Large stool in the rectum. Nonobstructive pattern. No inflammatory changes. 2. Severe atherosclerosis of the abdominal aorta and branch vessels. No aneurysm. 3. Distended urinary bladder at the time of imaging and please correlate clinically. 4. Severe lumbar spine degenerative changes. No acute bony abnormality seen. 5. Fat-containing umbilical hernia. Felipe Mckinnon MD Pelvis CT 05/02/16 0000 Signed Impressions: Service Date/Time: April 19:03 - CONCLUSION: Intact pelvis. Felipe Mckinnon MD Lower Extremity CT 05/02/16 0000 Signed Impressions: Service Date/Time: April 19:03 - CONCLUSION: Intact right hip. Felipe Mckinnon MD Chest X-Ray 05/02/16 0000 Signed Impressions: Service Date/Time: April 09:21 - CONCLUSION: 1. Minimal basilar atelectasis. Pacer leads in right atrium and right ventricle. Jean Claude Yip MD Lower Extremity Ultrasound 04/28/16 0000 Signed Impressions: Service Date/Time: Thursday, April 28, 2016 12:46 - CONCLUSION: Normal examination. Elvis Beaver MD Hip and Pelvis X-Ray 04/15/16 0000 Signed Impressions: Service Date/Time: Friday, April 15, 2016 09:15 - CONCLUSION: Osteopenia, negative for fracture. CT scanning would be more sensitive the patient remains symptomatic Dhiraj Jose MD FACR Objective Remarks GENERAL: This is a well-nourished, well-developed patient, in no apparent distress. HEENT: Normocephalic. Pupils equal round and reactive. Nose without bleeding. Airway patent. NECK: Trachea midline. No JVD. Supple. CARDIOVASCULAR: Regular rate and rhythm without murmurs, gallops, or rubs. RESPIRATORY: Bilateral upper lobe with rhonchi. Fair to good air exchange. GASTROINTESTINAL: Abdomen soft, non-tender, nondistended. Bowel Sounds hypoactive x4. MUSCULOSKELETAL: Extremities without clubbing, cyanosis, race bilateral lower extremity edema. NEUROLOGICAL: Awake and alert. No focal neuro deficit. AYERS. Normal speech. A/P Problem List: (1) Lower extremity pain, bilateral ICD Code: M79.604 Status: Acute (2) Adjustment disorder with mixed anxiety and depressed mood ICD Code: F43.23 Status: Acute (3) DM (diabetes mellitus) ICD Code: E11.9 Status: Acute Assessment and Plan Pleasant 75-year-old female patient currently inpatient psychiatric center we have been consulted for assistance with hypertension and diabetes mellitus. Patient is on Pradaxa reports some kind of heart rhythm problem in the past requiring pacemaker placement question atrial fibrillation. Encephalopathy - probably secondary to sepsis. Improved. More responsive, answers questions and follows commands. SIRS, Sepsis - elevated WBC 30.1, febrile at 102, unknown source for now, ? PPM involvement - UA negative, CXR unremarkable - BC no growth in one day - On IV Vanco and Zosyn. IVF NS 150 ML's an hour continue - ID Consulted. CT of the abdomen and pelvis recommended and was done. - 05/02/15 CT abdomen/pelvis large stool in the rectum. Nonobstructive pattern. No inflammatory changes. Severe atherosclerosis of the abdominal aorta and branch vessels. No aneurysm. Distended urinary bladder at the time of imaging please correlate clinically. Severe lumbar spine degenerative disease. No acute bony abnormality seen. Fat-containing umbilical hernia. Patient was ordered fleets enema, MOM, bowel regimen. -Lactate 2.7 --> 1.8 improved. Leukocytosis 30.1 --> 28.2 improved Acute Kidney injury - HOCKEY SCOUT 1.66 --> 1.79 - Continue IV fluid hydration - Avoid nephrotoxins - Recheck BMP tomorrow Continue lisinopril to 20mg BID atenolol and clonidine as needed. Monitor vital signs per protocol Diabetes mellitus. Levemir to 20 units twice a day Accu-Cheks before meals at bedtime with sliding scale insulin coverage Diabetic diet. - Hold metformin 500 mg twice a day secondary to SOBEIDA. Continue sliding scale - Hold Levemir if patient is not getting by mouth diet Question atrial fibrillation history of cardiac arrhythmia requiring pacemaker on Pradaxa at home Will continue Pradaxa Constipation Continue bowel regimen Chronic bilateral lower extremity pain continue [place] 10 mg every 4 hours as needed for pain as well as Neurontin 600 mg by mouth daily at bedtime Left knee exam consistent with advanced osteoarthritis recommend outpatient orthopedic surgery consult after discharge - Neurontin decreased to 100 mg 3 times a day - 05/02/[address] showed intact right hip, pelvic CT shows intact pelvis. DVT prophylaxis pradaxa Written by Vince Barrett, acting as scribe for Dr. Mace on 05/03/16 at 10:06. The documentation accurately reflects the work performed [id number] by me on at 10:06. Vince Mtz May 03, 2016 11:05 Diana Mace DO May 03, 2016 19:15
--- NOTE | 2016-05-03 12:56 | HHI.PYPN ---
Subjective Remarks On reevaluation today the patient was found calm and cooperative, also very pleasant, she says that she feels much better, doesn't have any specific medical complaints at the moment, she describes her mood as fine, denies depression, denies anxiety, denies perceptual disturbances, she denies visual of auditory hallucinations, she denies suicidal ideation. Patient states that she feels wonderful to be here, she she loved to staff. Patient has been medication compliant, no significant side effects reported. No mood or behavioral dysregulation reported or observed at this moment. Medical team are concerned about persistent WBCs elevation without any identified source. Review of Systems Constitutional: DENIES: Diaphoretic episodes, Fatigue, Fever, Weight gain, Weight loss, Chills, Dizziness, Change in appetite, Night Sweats Endocrine: DENIES: Abnorml menstrual pattern, Heat/cold intolerance, Polydipsia , Polyuria, Polyphagia Eyes: DENIES: Blurred vision, Diplopia, Eye inflammation, Eye pain, Vision loss , Photosensitivity, Double Vision Ears, nose, mouth, throat: DENIES: Tinnitus, Hearing loss, Vertigo, Nasal discharge, Oral lesions, Throat pain, Hoarseness, Ear Pain, Running Nose, Epistaxis, Sinus Pain, Toothache, Odynophagia Respiratory: DENIES: Apneas, Cough, Snoring, Wheezing, Hemoptysis, Sputum production, Shortness of breath Cardiovascular: DENIES: Chest pain, Palpitations, Syncope, Dyspnea on Exertion , PND, Lower Extremity Edema, Orthopnea, Claudication Genitourinary: DENIES: Abnormal vaginal bleeding, Dysmenorrhea, Dyspareunia, Sexual dysfunction, Urinary frequency, Urinary incontinence, Urgency, Hematuria , Dysuria, Nocturia, Vaginal discharge Musculoskeletal: DENIES: Joint pain, Muscle aches, Stiffness, Joint Swelling, Back pain, Neck pain Integumentary: DENIES: Abnormal pigmentation, Pruritus, Rash, Nail changes, Breast masses, Breast skin changes, Nipple discharge Hematologic/lymphatic: DENIES: Bruising, Lymphadenopathy Immunologic/allergic: DENIES: Eczema, Urticaria Neurologic: DENIES: Abnormal gait, Headache, Localized weakness, Paresthesias, Seizures, Speech Problems, Tremor, Poor Balance Psychiatric: DENIES: Anxiety, Confusion, Mood changes, Depression, Hallucinations, Agitation, Suicidal Ideation, Homicidal Ideation, Delusions Objective Alert: Yes [place]: Person, Place, Date, Situation (patient showed marked decreased level of consciousness) Mood: Calm Affect: Euthymic Memory Intact: Comment (difficult to ascertain due to patient's level of consciousness) Hallucinations: Other (she denies) Delusions: No Delusion Type: Other (none) Suicidal: Ideation (she denies) Homicidal: Ideation (she denies) Insight/Judgement Improved Labs Test 05/02/16 05/03/16 20:30 04:55 Lactic Acid Level 2.7 mmol/L 1.8 mmol/L Lipase 31 U/L White Blood Count 28.2 TH/MM3 Red Blood Count 3.47 MIL/MM3 Hemoglobin 10.0 GM/DL Hematocrit 29.6 % Mean Corpuscular Volume 85.3 FL Mean Corpuscular Hemoglobin 28.8 PG Mean Corpuscular Hemoglobin 33.7 % Concent Red Cell Distribution Width 15.4 % Platelet Count 178 TH/MM3 Mean Platelet Volume 9.7 FL Neutrophils (%) (Auto) 87.7 % Lymphocytes (%) (Auto) 5.4 % Monocytes (%) (Auto) 6.2 % Eosinophils (%) (Auto) 0.2 % Basophils (%) (Auto) 0.5 % Neutrophils # (Auto) 24.7 TH/MM3 Lymphocytes # (Auto) 1.5 TH/MM3 Monocytes # (Auto) 1.7 TH/MM3 Eosinophils # (Auto) 0.1 TH/MM3 Basophils # (Auto) 0.1 TH/MM3 CBC Comment AUTO DIFF Differential Total Cells 100 Counted Neutrophils % (Manual) 74 % Band Neutrophils % 20 % Lymphocytes % 3 % Monocytes % 3 % Neutrophils # (Manual) 26.5 TH/MM3 Differential Comment FINAL DIFF MANUAL Platelet Estimate NORMAL Platelet Morphology Comment NORMAL Red Cell Morphology Comment NORMAL Hematology Comments Sodium Level 136 MEQ/L Potassium Level 4.2 MEQ/L Chloride Level 105 MEQ/L Carbon Dioxide Level 20.1 MEQ/L Anion Gap 11 MEQ/L Blood Urea Nitrogen 56 MG/DL Creatinine 1.79 MG/DL Estimat Glomerular Filtration 28 ML/MIN Rate Random Glucose 142 MG/DL Calcium Level 8.3 MG/DL Total Bilirubin 0.5 MG/DL Direct Bilirubin 0.1 MG/DL Indirect Bilirubin 0.4 MG/DL Aspartate Amino Transf 28 U/L (AST/SGOT) Alanine Aminotransferase 17 U/L (ALT/SGPT) Alkaline Phosphatase 97 U/L Total Protein 6.3 GM/DL Albumin 2.8 GM/DL Date/Time Procedure Status Source Growth 05/02/16 20:30 Aerobic Blood Culture - Preliminary Resulted Blood Peripheral NO GROWTH IN 1 DAY 05/02/16 20:30 Anaerobic Blood Culture - Preliminary Resulted Blood Peripheral NO GROWTH IN 1 DAY Vitals/IOs Vital Signs Date Time Temp Pulse Resp B/P Pulse Ox O2 Delivery O2 Flow Rate FiO2 05/03/16 05:41 97.6 64 17 93/54 99 Intake and Output 05/02/16 05/02/16 05/03/16 08:00 16:00 00:00 Intake Total 120 ml 480 ml 960 ml Balance 120 ml 480 ml 960 ml Assessment & Plan Problem List: (1) Adjustment disorder with mixed anxiety and depressed mood Assessment & Plan: On reevaluation today patient does not present any significant, concern or acute symptomatology of depression, anxiety lashon, perceptual disturbances. She denies suicidal and homicidal ideation. Patient will continue the process of psychiatric hospitalization in order to coordinate a safe discharge. No changes in psychotropics. ICD Code: F43.23 (2) Lower extremity pain, bilateral ICD Code: M79.604 Assessment & Plan Estimated LOS: days Justification for Cont. Inpt. Patient now waiting for coordination of safe discharge and pending medical clearance. Request HC Surrog/Guard Advoc?: Olivier Castillo MD May 03, 2016 12:56
[2016-05-03] MEDS ORDERED: PANTOPRAZOLE SODIUM 40 MG VIAL IV PUSH ONE (13:00)
[2016-05-03] MEDS: GABAPENTIN 100 MG CAP PO SCH ×2 (13:00→17:39)
[2016-05-03 13:04] VITALS: BP 106/57; PULSE 66; RESP 18; O2SAT 100
--- NOTE | 2016-05-03 19:47 | HHI.IDPN ---
Subjective Subjective Remarks much improved fully awake and alert no fever co difficulty voidiing No diarrhea resolved lactic acidosis Antibiotics zosyn Past Medical History diabetes morbid obesity Allergies: Coded Allergies: Morphine (Verified Allergy, Intermediate, 04/10/16) Penicillin (Verified Allergy, Intermediate, HIVES, 04/10/16) Objective . Vital Signs Date Time Temp Pulse Resp B/P Pulse Ox O2 Delivery O2 Flow Rate FiO2 05/03/16 13:04 66 18 106/57 100 05/03/16 05:41 97.6 64 17 93/54 99 05/03/16 02:49 97.6 71 104/46 97 05/02/16 05/02/16 05/03/16 15:00 23:00 07:00 Intake Total 480 ml 960 ml 1440 ml Balance 480 ml 960 ml 1440 ml Intake Oral 480 ml 960 ml 240 ml IV Total 1200 ml # Voids 1 # Bowel Movements 1 . Laboratory Tests Test 05/02/16 05/03/16 09:44 04:55 White Blood Count 30.1 TH/MM3 28.2 TH/MM3 Red Blood Count 3.83 MIL/MM3 3.47 MIL/MM3 Hemoglobin 10.7 GM/DL 10.0 GM/DL Hematocrit 33.0 % 29.6 % Mean Corpuscular Volume 86.1 FL 85.3 FL Mean Corpuscular Hemoglobin 28.0 PG 28.8 PG Mean Corpuscular Hemoglobin 32.6 % 33.7 % Concent Red Cell Distribution Width 14.9 % 15.4 % Platelet Count 272 TH/MM3 178 TH/MM3 Mean Platelet Volume 8.5 FL 9.7 FL Neutrophils (%) (Auto) 93.1 % 87.7 % Lymphocytes (%) (Auto) 3.0 % 5.4 % Monocytes (%) (Auto) 3.7 % 6.2 % Eosinophils (%) (Auto) 0.0 % 0.2 % Basophils (%) (Auto) 0.2 % 0.5 % Neutrophils # (Auto) 28.0 TH/MM3 24.7 TH/MM3 Lymphocytes # (Auto) 0.9 TH/MM3 1.5 TH/MM3 Monocytes # (Auto) 1.1 TH/MM3 1.7 TH/MM3 Eosinophils # (Auto) 0.0 TH/MM3 0.1 TH/MM3 Basophils # (Auto) 0.1 TH/MM3 0.1 TH/MM3 CBC Comment AUTO DIFF AUTO DIFF Differential Total Cells 100 100 Counted Neutrophils % (Manual) 93 % 74 % Band Neutrophils % 2 % 20 % Lymphocytes % 3 % 3 % Monocytes % 1 % 3 % Basophils % 1 % Neutrophils # (Manual) 28.6 TH/MM3 26.5 TH/MM3 Differential Comment FINAL DIFF FINAL DIFF MANUAL MANUAL Platelet Estimate NORMAL NORMAL Platelet Morphology Comment NORMAL NORMAL Red Cell Morphology Comment NORMAL NORMAL Hematology Comments Laboratory Tests Test 05/02/16 05/02/16 05/03/16 09:44 20:30 04:55 Sodium Level 135 MEQ/L 136 MEQ/L Potassium Level 4.2 MEQ/L 4.2 MEQ/L Chloride Level 101 MEQ/L 105 MEQ/L Carbon Dioxide Level 23.1 MEQ/L 20.1 MEQ/L Anion Gap 11 MEQ/L 11 MEQ/L Blood Urea Nitrogen 46 MG/DL 56 MG/DL Creatinine 1.66 MG/DL 1.79 MG/DL Estimat Glomerular Filtration 30 ML/MIN 28 ML/MIN Rate Random Glucose 200 MG/DL 142 MG/DL Calcium Level 9.0 MG/DL 8.3 MG/DL Total Bilirubin 0.8 MG/DL 0.5 MG/DL Aspartate Amino Transf 14 U/L 28 U/L (AST/SGOT) Alanine Aminotransferase 19 U/L 17 U/L (ALT/SGPT) Alkaline Phosphatase 118 U/L 97 U/L Total Protein 7.0 GM/DL 6.3 GM/DL Albumin 3.4 GM/DL 2.8 GM/DL Lactic Acid Level 2.7 mmol/L 1.8 mmol/L Lipase 31 U/L Direct Bilirubin 0.1 MG/DL Indirect Bilirubin 0.4 MG/DL Microbiology Date/Time Procedure Status Source Growth 05/02/16 20:25 Aerobic Blood Culture - Preliminary Resulted Blood Peripheral NO GROWTH IN 1 DAY 05/02/16 20:25 Anaerobic Blood Culture - Preliminary Resulted Blood Peripheral NO GROWTH IN 1 DAY 05/02/16 20:30 Aerobic Blood Culture - Preliminary Resulted Blood Peripheral NO GROWTH IN 1 DAY 05/02/16 20:30 Anaerobic Blood Culture - Preliminary Resulted Blood Peripheral NO GROWTH IN 1 DAY Imaging Last Impressions Abdomen/Pelvis CT 05/02/16 8137 Signed Impressions: Service Date/Time: April 19:03 - CONCLUSION: 1. Large stool in the rectum. Nonobstructive pattern. No inflammatory changes. 2. Severe atherosclerosis of the abdominal aorta and branch vessels. No aneurysm. 3. Distended urinary bladder at the time of imaging and please correlate clinically. 4. Severe lumbar spine degenerative changes. No acute bony abnormality seen. 5. Fat-containing umbilical hernia. Felipe Mckinnon MD Pelvis CT 05/02/16 0000 Signed Impressions: Service Date/Time: April 19:03 - CONCLUSION: Intact pelvis. Felipe Mckinnon MD Lower Extremity CT 05/02/16 0000 Signed Impressions: Service Date/Time: April 19:03 - CONCLUSION: Intact right hip. Felipe Mckinnon MD Chest X-Ray 05/02/16 0000 Signed Impressions: Service Date/Time: April 09:21 - CONCLUSION: 1. Minimal basilar atelectasis. Pacer leads in right atrium and right ventricle. Jean Claude Yip MD Lower Extremity Ultrasound 04/28/16 0000 Signed Impressions: Service Date/Time: Thursday, April 28, 2016 12:46 - CONCLUSION: Normal examination. Elvis Beaver MD Hip and Pelvis X-Ray 04/15/16 0000 Signed Impressions: Service Date/Time: Friday, April 15, 2016 09:15 - CONCLUSION: Osteopenia, negative for fracture. CT scanning would be more sensitive the patient remains symptomatic Dhiraj Jose MD FACR Physical Exam CONSTITUTIONAL/GENERAL: This is an morbidly obese patient, in no apparent distress. Fully awake and alert Sitting on the edge of the bed NAD SKIN: No jaundice, rashes, or lesions. Skin temperature appropriate. Not diaphoretic. HEAD: Atraumatic. Normocephalic. EYES: Pupils equal and round and reactive. No scleral icterus. Fundi not examined. ENT: N Oral mucosae without visible erythema, exudates, masses, or lesions. Edentulous NECK: Trachea midline. Supple, nontender. . CARDIOVASCULAR: Regular rate and rhythm without murmurs, gallops, or rubs. No JVD. Peripheral pulses symmetric. Pacer in place L chest, no skin changes over the device RESPIRATORY/CHEST: Symmetric, unlabored respirations. Clear to auscultation. Breath sounds equal bilaterally. No wheezes, rales, or rhonchi. GASTROINTESTINAL: Abdomen soft, not tender to palpation , nondistended. No hepato-splenomegaly, or palpable masses. No guarding. Bowel sounds present. GENITOURINARY: Without palpable bladder distension. . MUSCULOSKELETAL: Extremities without clubbing, cyanosis, LLE with non pitting edema, + erythema and tenderness to palpation No joint tenderness or effusion noted. No calf tenderness. No mottling or clubbing. NEUROLOGICAL: Awake and alert. Normal speech Follows commands. . Moves all extremities. PSYCHIATRIC: tearful Assessment & Plan Remarks Sepsis - CT with large amount of sttol and distended bladder - BC negative @ 1 day - souce is likely vs GI New issue: LLE cellulitis - DVT is unlikel, just had negative US LLE on 04/28 Rec's: dc zosyn, start azactam, flagyl add vancomycin chck stool for C.diff if develops diarrhea fu BC untill final Discussed Condition With Leah Caal RN, MD May 03, 2016 19:47
[2016-05-03] MEDS ORDERED: Vancomycin Consult Pharmacy 1 EA IV SCH (20:00)
[2016-05-03] MEDS: MELATONIN 5 MG TAB PO SCH (20:10)
[2016-05-03] MEDS: ATORVASTATIN 20 MG TAB PO SCH (20:11)
[2016-05-03] MEDS: metroNIDAZOLE 500 MG INJ 100 ML IV SCH (21:07)
[2016-05-03] MEDS: AZTREONAM INJ 1,000 MG in SODIUM CHLORIDE 0.9% INJ 100 ML IV SCH (22:48)
[2016-05-04] MEDS: ACETAMINOPHEN/HYDROcodone 325 MG/10 MG TAB PO PRN ×3 (01:07→12:21)
[2016-05-04] MEDS: LORazepam 0.5 MG TAB PO PRN ×2 (02:41→14:57)
[2016-05-04] MEDS: metroNIDAZOLE 500 MG INJ 100 ML IV SCH ×3 (04:39→20:00)
[2016-05-04] MEDS: SODIUM CHLOR 0.9% 1000 ML INJ 1,000 ML IV SCH ×3 (04:45→16:09)
[2016-05-04 05:16] VITALS: BP 103/49; PULSE 65; RESP 17; TEMP 97.3; O2SAT 99
[2016-05-04] MEDS: AZTREONAM INJ 1,000 MG in SODIUM CHLORIDE 0.9% INJ 100 ML IV SCH ×3 (06:18→21:00)
[2016-05-04] MEDS: BACITRACIN TOP OINT 15 GM TUBE TOP SCH ×3 (06:56→22:00)
[2016-05-04] MEDS: INSULIN ASPART SUPPLEMENTAL SCALE SQ SCH ×4 (07:00→21:00)
[2016-05-04] MEDS: PANTOPRAZOLE SOD 40 MG DELAYED RELEASE TAB PO SCH (08:05)
[2016-05-04] MEDS: ISOSORBIDE MONONITRATE 30 MG TAB PO SCH (08:10)
[2016-05-04] MEDS: LISINOPRIL 20 MG TAB PO SCH ×2 (08:10→21:00)
[2016-05-04] MEDS: ATENOLOL 25 MG TAB PO SCH (08:10)
[2016-05-04] MEDS: FUROSEMIDE 20 MG TAB PO SCH (08:10)
[2016-05-04] MEDS: INSULIN DETEMIR 100 UNITS/ML VIAL SQ SCH ×2 (08:10→21:30)
[2016-05-04] MEDS: NYSTATIN 100,000 U/GM PWD 15 GM BTL TOPICAL SCH ×2 (09:00→21:30)
[2016-05-04] MEDS: GABAPENTIN 100 MG CAP PO SCH ×4 (09:19→18:17)
[2016-05-04] MEDS: POLYETHYLENE GLYCOL 17 GM PKG PO SCH (09:19)
[2016-05-04] MEDS: DABIGATRAN ETEXILATE 150 MG CAP PO SCH (09:20)
--- NOTE | 2016-05-04 09:31 | HHI.PR ---
Subjective Remarks Follow-up visit sepsis, left lower extremity cellulitis. Patient seen today. Awake alert, very responsive. States she hasn't slept all night because before coming in and out of her room to do something, all she wants to do a stress right now. Arevalo was inserted secondary to bladder distention. Seen by ID yesterday and IV antibiotics has been changed secondary to left lower extremity cellulitis. Right hip pain is improving. Patient states had small bowel movement this morning. Otherwise,denies shortness of breath/dyspnea, chest pain , palpitations, headaches, diarrhea. Objective Vitals Vital Signs Date Time Temp Pulse Resp B/P Pulse Ox O2 Delivery O2 Flow Rate FiO2 05/04/16 05:16 97.3 65 17 103/49 99 05/03/16 13:04 66 18 106/57 100 I/O 05/03/16 05/03/16 05/03/16 05/04/16 05/04/16 05/04/16 07:00 15:00 23:00 07:00 15:00 23:00 Intake Total 1440 ml 450 ml 2390 ml Output Total 2000 ml 650 ml Balance 1440 ml 450 ml -2000 ml 1740 ml Intake Oral 240 ml 450 ml 590 ml IV Total 1200 ml 1800 ml Output Urine Total 2000 ml 650 ml Stool Total 0 ml Emesis 0 ml Estimated Blood Loss 0 ml Blood Draw 0 ml Autotransfusion 0 ml Other 0 ml # Voids 1 7 # Bowel Movements 0 Result Diagram: 05/03/16 0455 05/04/16 0750 Imaging Last Impressions Abdomen/Pelvis CT 05/02/16 1615 Signed Impressions: Service Date/Time: April 19:03 - CONCLUSION: 1. Large stool in the rectum. Nonobstructive pattern. No inflammatory changes. 2. Severe atherosclerosis of the abdominal aorta and branch vessels. No aneurysm. 3. Distended urinary bladder at the time of imaging and please correlate clinically. 4. Severe lumbar spine degenerative changes. No acute bony abnormality seen. 5. Fat-containing umbilical hernia. Felipe Mckinnon MD Pelvis CT 05/02/16 0000 Signed Impressions: Service Date/Time: April 19:03 - CONCLUSION: Intact pelvis. Felipe Mckinnon MD Lower Extremity CT 05/02/16 0000 Signed Impressions: Service Date/Time: April 19:03 - CONCLUSION: Intact right hip. Felipe Mckinnon MD Chest X-Ray 05/02/16 0000 Signed Impressions: Service Date/Time: April 09:21 - CONCLUSION: 1. Minimal basilar atelectasis. Pacer leads in right atrium and right ventricle. Jean Claude Yip MD Lower Extremity Ultrasound 04/28/16 0000 Signed Impressions: Service Date/Time: Thursday, April 28, 2016 12:46 - CONCLUSION: Normal examination. Elvis Beaver MD Hip and Pelvis X-Ray 04/15/16 0000 Signed Impressions: Service Date/Time: Friday, April 15, 2016 09:15 - CONCLUSION: Osteopenia, negative for fracture. CT scanning would be more sensitive the patient remains symptomatic Dhiraj Jose MD FACR Objective Remarks GENERAL: This is a well-nourished, well-developed patient, in no apparent distress. HEENT: Normocephalic. Pupils equal round and reactive. Nose without bleeding. Airway patent. NECK: Trachea midline. No JVD. Supple. CARDIOVASCULAR: Regular rate and rhythm without murmurs, gallops, or rubs. RESPIRATORY: Bilateral upper lobe with rhonchi. Fair to good air exchange. GASTROINTESTINAL: Abdomen soft, non-tender, nondistended. Bowel Sounds hypoactive x4. : Arevalo cath draining clear yellow urine. MUSCULOSKELETAL: Extremities without clubbing, cyanosis, trace bilateral lower extremity edema. Left lower extremity erythema noted. NEUROLOGICAL: Awake and alert. No focal neuro deficit. AYERS. Normal speech. A/P Problem List: (1) Lower extremity pain, bilateral ICD Code: M79.604 Status: Acute (2) Adjustment disorder with mixed anxiety and depressed mood ICD Code: F43.23 Status: Acute (3) DM (diabetes mellitus) ICD Code: E11.9 Status: Acute Assessment and Plan Pleasant 75-year-old female patient currently inpatient psychiatric center we have been consulted for assistance with hypertension and diabetes mellitus. Patient is on Pradaxa reports some kind of heart rhythm problem in the past requiring pacemaker placement question atrial fibrillation. Encephalopathy - probably secondary to sepsis. Improved. More responsive, answers questions and follows commands. SIRS, Sepsis - elevated WBC 30.1, febrile at 102, unknown source for now, ? PPM involvement - UA negative, CXR unremarkable - BC no growth in one day - ID Following. CT of the abdomen and pelvis recommended and was done. - 05/02/15 CT abdomen/pelvis large stool in the rectum. Nonobstructive pattern. No inflammatory changes. Severe atherosclerosis of the abdominal aorta and branch vessels. No aneurysm. Distended urinary bladder at the time of imaging please correlate clinically. Severe lumbar spine degenerative disease. No acute bony abnormality seen. Fat-containing umbilical hernia. Patient was ordered fleets enema, MOM, bowel regimen. 05/03/15 -Lactate 2.7 --> 1.8 improved. Leukocytosis 30.1 --> 28.2 improved Left lower extremity cellulitis - IV antibiotics switched to Prozac time, Flagyl , Vanco per ID recommendation - Repeat Doppler studies rule out DVTs Urinary retention - Arevalo catheter inserted, clear yellow urine - Trial DC Arevalo by Friday. If continues to have retention will consult urology. 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 Monitor vital signs per protocol Diabetes mellitus. Levemir to 20 units twice a day Accu-Cheks before meals at bedtime with sliding scale insulin coverage Diabetic diet. - Hold metformin 500 mg twice a day secondary to SOBEIDA. Continue sliding scale - Hold Levemir if patient is not getting by mouth diet Question atrial fibrillation history of cardiac arrhythmia requiring pacemaker on Pradaxa at home Will continue Pradaxa Constipation Continue bowel regimen Chronic bilateral lower extremity pain continue [place] 10 mg every 4 hours as needed for pain as well as Neurontin 600 mg by mouth daily at bedtime Left knee exam consistent with advanced osteoarthritis recommend outpatient orthopedic surgery consult after discharge - Neurontin decreased to 100 mg 3 times a day - 05/02/[address] showed intact right hip, pelvic CT shows intact pelvis. DVT prophylaxis pradaxa Written by Vince Barrett, acting as scribe for Dr. Gonzalez on 05/04/16 at 11: 45. Attending Statement The documentation accurately reflects the work performed [id number] by me on at 11:45. Vince Mtz May 04, 2016 09:31 Alverto Lira MD May 05, 2016 23:07
--- NOTE | 2016-05-04 11:56 | HHI.PYPN ---
Subjective Remarks Patient seen in her room with nurse Sandra, patient recognize me from her stay on 2500, somewhat tearful and continue somatic afraid for the future of her leg. I reinforced the need to be cooperative and positive with her treating physicians. Patient does denies suicidality homicidality voices or visions, is compliant with medication Review of Systems Except as stated in HPI: all other systems reviewed are Neg Objective Alert: Yes [place]: Person, Place, Date, Situation (patient showed marked decreased level of consciousness) Mood: Calm Affect: Euthymic Memory Intact: Comment (difficult to ascertain due to patient's level of consciousness) Hallucinations: Other (she denies) Delusions: No Delusion Type: Other (none) Suicidal: Ideation (she denies) Homicidal: Ideation (she denies) Insight/Judgement Poor Labs Test 05/04/16 05/04/16 04:50 07:50 Random Vancomycin Level 7.8 COMMENT Random Glucose 77 MG/DL Date/Time Procedure Status Source Growth 05/02/16 20:30 Aerobic Blood Culture - Preliminary Resulted Blood Peripheral NO GROWTH IN 2 DAYS 05/02/16 20:30 Anaerobic Blood Culture - Preliminary Resulted Blood Peripheral NO GROWTH IN 2 DAYS Vitals/IOs Vital Signs Date Time Temp Pulse Resp B/P Pulse Ox O2 Delivery O2 Flow Rate FiO2 05/04/16 05:16 97.3 65 17 103/49 99 Intake and Output 05/03/16 05/03/16 05/04/16 08:00 16:00 00:00 Intake Total 1440 ml 450 ml Balance 1440 ml 450 ml Assessment & Plan Problem List: (1) Adjustment disorder with mixed anxiety and depressed mood ICD Code: F43.23 (2) Lower extremity pain, bilateral ICD Code: M79.604 Assessment & Plan Estimated LOS: days patient remains depressed somatic and somewhat confused. For now continue treatment Justification for Cont. Inpt. Patient would significantly decompensated placed in a lower level of care Discharge Planning To be determined Request HC Surrog/Guard Advoc?: No Felipe Ro MD May 04, 2016 11:56
[2016-05-04] MEDS ORDERED: VANCOMYCIN 1,500 MG/NS 500 ML IV ONE ×2 (14:00)
[2016-05-04] MEDS ORDERED: LORazepam 2 MG/ML VIAL IM ONE (18:15)
[2016-05-04] MEDS: MELATONIN 5 MG TAB PO SCH (21:00)
[2016-05-04] MEDS: ATORVASTATIN 20 MG TAB PO SCH (21:00)
[2016-05-04 21:11] VITALS: BP 132/84; PULSE 82; RESP 18; TEMP 101.6; O2SAT 91
[2016-05-04] MEDS ORDERED: KETOROLAC TROMETHAMINE 60 MG/2 ML (IM) VIAL IM ONE (21:15)
[2016-05-05] VITALS (8 sets, daily range): BP systolic 94–160; BP diastolic 43–79; PULSE 62–119; RESP 18–20; TEMP 97.6–100.6; O2SAT 91–100
[2016-05-05] MEDS: SODIUM CHLOR 0.9% 1000 ML INJ 1,000 ML IV SCH ×3 (00:15→13:35)
[2016-05-05] MEDS: metroNIDAZOLE 500 MG INJ 100 ML IV SCH ×3 (04:00→18:55)
[2016-05-05] MEDS: ACETAMINOPHEN/HYDROcodone 325 MG/10 MG TAB PO PRN ×2 (04:25→23:24)
[2016-05-05] MEDS: AZTREONAM INJ 1,000 MG in SODIUM CHLORIDE 0.9% INJ 100 ML IV SCH ×3 (05:00→22:17)
[2016-05-05] MEDS: BACITRACIN TOP OINT 15 GM TUBE TOP SCH ×3 (05:24→22:01)
[2016-05-05] MEDS: INSULIN ASPART SUPPLEMENTAL SCALE SQ SCH ×4 (06:30→22:00)
[2016-05-05 07:12] LABS: HEMATOCRIT 24.2 % (35.0-46.0); MEAN CELL VOLUME 86.2 FL (80.0-100.0); MEAN CORPUSCULAR HEMOGLOBIN 29.6 PG (27.0-34.0); MEAN CORPUSCULAR HGB CONC 34.4 % (32.0-36.0); PLATELET COUNT 193 TH/MM3 (150-450); RED CELL DISTRIBUTION WIDTH 15.2 % (11.6-17.2); REVIEW FLAG FINAL; WHITE BLOOD COUNT 12.6 TH/MM3 (4.0-11.0)
[2016-05-05 07:45] LABS: BICARBONATE 24.6 MEQ/L (21.0-32.0)
[2016-05-05] MEDS: GABAPENTIN 100 MG CAP PO SCH ×3 (08:22→18:00)
[2016-05-05] MEDS: DABIGATRAN ETEXILATE 150 MG CAP PO SCH (08:22)
[2016-05-05] MEDS: POLYETHYLENE GLYCOL 17 GM PKG PO SCH (08:22)
[2016-05-05] MEDS: PANTOPRAZOLE SOD 40 MG DELAYED RELEASE TAB PO SCH (08:22)
[2016-05-05] MEDS: ISOSORBIDE MONONITRATE 30 MG TAB PO SCH (08:25)
[2016-05-05] MEDS: FUROSEMIDE 20 MG TAB PO SCH (08:25)
[2016-05-05] MEDS: LISINOPRIL 20 MG TAB PO SCH (08:26)
[2016-05-05] MEDS: ATENOLOL 25 MG TAB PO SCH (08:26)
[2016-05-05] MEDS: NYSTATIN 100,000 U/GM PWD 15 GM BTL TOPICAL SCH ×2 (08:27→21:28)
[2016-05-05] MEDS: INSULIN DETEMIR 100 UNITS/ML VIAL SQ SCH ×2 (08:27→22:02)
[2016-05-05] MEDS ORDERED: SODIUM CHLOR 0.9% 1000 ML INJ 1,000 ML IV ONE (08:45)
[2016-05-05] MEDS: ALUMINUM/MAGNESIUM/SIMETH 30 ML CUP PO PRN (09:13)
--- NOTE | 2016-05-05 09:35 | RADRPT ---
EXAM DATE/TIME: 05/05/2016 07:45 [facility] COMPARISON: US LEG BILATERAL VENOUS DOPPLER, April 28, 2016, 12:46. INDICATIONS : Bilateral leg pain. MEDICAL HISTORY : Arthritis. Hypertension. Measles. SURGICAL HISTORY : Left foot surgery. ENCOUNTER: Initial ACUITY: 1 day PAIN SCORE: 3/10 LOCATION: Bilateral legs. TECHNIQUE: Venous ultrasound of the left and right leg was performed from the inguinal ligament to the proximal calf. Real-time, color Doppler and spectral tracing, compression and augmentation techniques were us ed. FINDINGS: RIGHT LEG: There is normal compressibility of the deep venous system from the inguinal region to the proximal ca lf. No echogenic clot is seen in the lumen of the common femoral, femoral, popliteal, and posterior tibial veins. There is a normal response of the venous system to proximal and distal augmentation an d respiration. LEFT LEG: There is normal compressibility of the deep venous system from the inguinal region to the proximal ca lf. No echogenic clot is seen in the lumen of the common femoral, femoral, popliteal, and posterior tibial veins. There is a normal response of the venous system to proximal and distal augmentation an d respiration. CONCLUSION: Negative for deep venous thrombosis.. Dhiraj Jose MD FACR on May 05, 2016 at 9:32 Board Certified Radiologist. This report was verified electronically.
--- NOTE | 2016-05-05 11:08 | HHI.PR ---
Subjective Remarks Follow-up visit sepsis, hypotension, left lower extremity cellulitis. Patient seen today. Awake alert, very responsive. States she is doing well. Very anxious, regarding her left lower extremity asking if amputation is needed. Patient reassurance provided. Episode of hypotension was reported yesterday patient was given bolus IV fluids. Vital signs within normal upon review. Denies pain and discomfort. Denies SOB/ dyspnea. Denies chestpain, palpitations, headaches, dizziness. Denies fevers, chills, n/v/d. Objective Vitals Vital Signs Date Time Temp Pulse Resp B/P Pulse Ox O2 Delivery O2 Flow Rate FiO2 05/05/16 07:55 97.7 62 18 94/43 100 05/05/16 05:56 97.6 70 18 105/49 93 05/04/16 21:11 101.6 82 18 132/84 91 Automatic Cuff I/O 05/04/16 05/04/16 05/04/16 05/05/16 05/05/16 05/05/16 07:00 15:00 23:00 07:00 15:00 23:00 Intake Total 3110 ml 1219 ml Output Total 2000 ml 1800 ml 2238 ml Balance -2000 ml 1310 ml 1219 ml -2238 ml Intake Oral 1310 ml 0 ml IV Total 1800 ml 817 ml Other 402 ml Output Urine Total 2000 ml 1800 ml 1738 ml Stool Total 0 ml 500 ml Emesis 0 ml Estimated Blood Loss 0 ml Blood Draw 0 ml Autotransfusion 0 ml Other 0 ml # Voids 7 1 # Bowel Movements 0 1 Result Diagram: 05/05/16 0645 05/05/16 0645 Imaging Last Impressions Lower Extremity Ultrasound 05/05/16 0000 Signed Impressions: Service Date/Time: Thursday, May 05, 2016 07:45 - CONCLUSION: Negative for deep venous thrombosis.. Dhiraj Jose MD FACR Abdomen/Pelvis CT 05/02/16 1615 Signed Impressions: Service Date/Time: April 19:03 - CONCLUSION: 1. Large stool in the rectum. Nonobstructive pattern. No inflammatory changes. 2. Severe atherosclerosis of the abdominal aorta and branch vessels. No aneurysm. 3. Distended urinary bladder at the time of imaging and please correlate clinically. 4. Severe lumbar spine degenerative changes. No acute bony abnormality seen. 5. Fat-containing umbilical hernia. Felipe Mckinnon MD Pelvis CT 05/02/16 0000 Signed Impressions: Service Date/Time: April 19:03 - CONCLUSION: Intact pelvis. Felipe Mckinnon MD Lower Extremity CT 05/02/16 0000 Signed Impressions: Service Date/Time: , May 02, 2016 19:03 - CONCLUSION: Intact right hip. Felipe Mckinnon MD Chest X-Ray 05/02/16 0000 Signed Impressions: Service Date/Time: , May 02, 2016 09:21 - CONCLUSION: 1. Minimal basilar atelectasis. Pacer leads in right atrium and right ventricle. Jean Claude Yip MD Hip and Pelvis X-Ray 04/15/16 0000 Signed Impressions: Service Date/Time: Friday, April 15, 2016 09:15 - CONCLUSION: Osteopenia, negative for fracture. CT scanning would be more sensitive the patient remains symptomatic Dhiraj Jose MD FACR Objective Remarks GENERAL: This is a well-nourished, well-developed patient, in no apparent distress. HEENT: Normocephalic. Pupils equal round and reactive. Nose without bleeding. Airway patent. NECK: Trachea midline. No JVD. Supple. CARDIOVASCULAR: Regular rate and rhythm without murmurs, gallops, or rubs. RESPIRATORY: Bilateral upper lobe with rhonchi. Fair to good air exchange. GASTROINTESTINAL: Abdomen soft, non-tender, nondistended. Bowel Sounds hypoactive x4. : Arevalo cath draining clear yellow urine. MUSCULOSKELETAL: Extremities without clubbing, cyanosis, trace bilateral lower extremity edema. Left lower extremity erythema decreased in size but appears to be darker.. NEUROLOGICAL: Awake and alert. No focal neuro deficit. AYERS. Normal speech. Urinary Catheter: Yes Arevalo insert reason: Obstruction/Retention A/P Problem List: (1) Lower extremity pain, bilateral ICD Code: M79.604 Status: Acute (2) Adjustment disorder with mixed anxiety and depressed mood ICD Code: F43.23 Status: Acute (3) DM (diabetes mellitus) ICD Code: E11.9 Status: Acute Assessment and Plan Pleasant 75-year-old female patient currently inpatient psychiatric center we have been consulted for assistance with hypertension and diabetes mellitus. Patient is on Pradaxa reports some kind of heart rhythm problem in the past requiring pacemaker placement question atrial fibrillation. Encephalopathy - probably secondary to sepsis. Improved. More responsive, answers questions and follows commands. SIRS, Sepsis - elevated WBC 30.1, febrile at 102, unknown source for now, ? PPM involvement - UA negative, CXR unremarkable - BC no growth in one day - ID Following. CT of the abdomen and pelvis recommended and was done. - 05/02/15 CT abdomen/pelvis large stool in the rectum. Nonobstructive pattern. No inflammatory changes. Severe atherosclerosis of the abdominal aorta and branch vessels. No aneurysm. Distended urinary bladder at the time of imaging please correlate clinically. Severe lumbar spine degenerative disease. No acute bony abnormality seen. Fat-containing umbilical hernia. Patient was ordered fleets enema, MOM, bowel regimen. 05/03/15 -Lactate 2.7 --> 1.8 improved. Leukocytosis 30.1 --> 28.2 --> 12.6 today improved Left lower extremity cellulitis - IV antibiotics switched to Prozac time, Flagyl , Vanco per ID recommendation - Repeat Doppler studies negative for DVTs Urinary retention - Arevalo catheter inserted, clear yellow urine - Trial DC Arevalo by Friday. If continues to have retention will consult urology. 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 Monitor vital signs per protocol Diabetes mellitus. Levemir to 20 units twice a day Accu-Cheks before meals at bedtime with sliding scale insulin coverage Diabetic diet. - Hold metformin 500 mg twice a day secondary to SOBEIDA. Continue sliding scale - Hold Levemir if patient is not getting by mouth diet Question atrial fibrillation history of cardiac arrhythmia requiring pacemaker on Pradaxa at home Will continue Pradaxa Constipation Continue bowel regimen Chronic bilateral lower extremity pain continue [place] 10 mg every 4 hours as needed for pain as well as Neurontin 600 mg by mouth daily at bedtime Left knee exam consistent with advanced osteoarthritis recommend outpatient orthopedic surgery consult after discharge - Neurontin decreased to 100 mg 3 times a day - 05/02/[address] showed intact right hip, pelvic CT shows intact pelvis. DVT prophylaxis pradaxa Written by Vince Barrett, acting as scribe for Dr. Gonzalez on 05/05/16 at 11: 00. Attending Statement The documentation accurately reflects the work performed [id number] by me on at 11:00. Vince Mtz May 05, 2016 11:08 Alverto Lira MD May 05, 2016 23:40
[2016-05-05] MEDS: VANCOMYCIN INJ 2,000 MG in SODIUM CHLORID 0.9% 500 ML INJ 500 ML IV SCH (12:00)
[2016-05-05] MEDS: RESP: ALBUTEROL 2.5 MG/IPRATROPIUM 0.5 MG NEB (PRN) NEB (15:03)
[2016-05-05] MEDS ORDERED: FUROSEMIDE 40 MG/4 ML VIAL IV PUSH ONE (15:45)
--- NOTE | 2016-05-05 16:01 | RADRPT ---
EXAM DATE/TIME: 05/05/2016 15:34 [facility] COMPARISON: CHEST SINGLE AP, May 02, 2016, 9:21. INDICATIONS : Short of breath MEDICAL HISTORY : None. SURGICAL HISTORY : Pacemaker. ENCOUNTER: Subsequent ACUITY: 2 weeks PAIN SCORE: 0/10 LOCATION: Bilateral chest FINDINGS: Moderate pulmonary vascular congestion or pneumonia is noted bilaterally. A left subclavian dual-rubin d pacemaker has its tips in the right atrium and right ventricle. There is no pneumothorax. The hea rt is stable. Degenerative changes are noted throughout the thoracic spine. CONCLUSION: 1. Moderate pulmonary vascular congestion or pneumonia is noted. Clinical correlation is recommende d. 2. Degenerative changes throughout the thoracic spine. Radu Hurley MD on May 05, 2016 at 15:56 Board Certified Radiologist. This report was verified electronically.
--- NOTE | 2016-05-05 16:08 | HHI.PYPN ---
Subjective Remarks Patient seen in her room with nurse Sandra, patient continues quite anxious somewhat delusional being "afraid" she is going to deny that she going to lose her leg that she can't breathe. Patient nasal oxygen on her color is good her breathing is without difficulty. She compliant with medications. For now continue treatment Review of Systems Except as stated in HPI: all other systems reviewed are Neg Objective Alert: Yes [place]: Person, Place, Date, Situation (patient showed marked decreased level of consciousness) Mood: Calm Affect: Euthymic Memory Intact: Comment (difficult to ascertain due to patient's level of consciousness) Hallucinations: Other (she denies) Delusions: No Delusion Type: Other (none) Suicidal: Ideation (she denies) Homicidal: Ideation (she denies) Insight/Judgement Very poor Labs Test 05/05/16 06:45 White Blood Count 12.6 TH/MM3 Red Blood Count 2.80 MIL/MM3 Hemoglobin 8.3 GM/DL Hematocrit 24.2 % Mean Corpuscular Volume 86.2 FL Mean Corpuscular Hemoglobin 29.6 PG Mean Corpuscular Hemoglobin 34.4 % Concent Red Cell Distribution Width 15.2 % Platelet Count 193 TH/MM3 Mean Platelet Volume 8.8 FL Sodium Level 143 MEQ/L Potassium Level 4.0 MEQ/L Chloride Level 112 MEQ/L Carbon Dioxide Level 24.6 MEQ/L Anion Gap 6 MEQ/L Blood Urea Nitrogen 27 MG/DL Creatinine 1.13 MG/DL Estimat Glomerular Filtration 47 ML/MIN Rate Random Glucose 59 MG/DL Calcium Level 8.4 MG/DL Random Vancomycin Level 6.5 COMMENT Date/Time Procedure Status Source Growth 05/02/16 20:30 Aerobic Blood Culture - Preliminary Resulted Blood Peripheral NO GROWTH IN 3 DAYS 05/02/16 20:30 Anaerobic Blood Culture - Preliminary Resulted Blood Peripheral NO GROWTH IN 3 DAYS Vitals/IOs Vital Signs Date Time Temp Pulse Resp B/P Pulse Ox O2 Delivery O2 Flow Rate FiO2 05/05/16 15:03 92 Nasal Cannula 2.00 05/05/16 12:00 97.8 81 18 137/60 Intake and Output 05/04/16 05/04/16 05/05/16 08:00 16:00 00:00 Intake Total 2150 ml 960 ml 1219 ml Output Total 2000 ml 1800 ml Balance 150 ml -840 ml 1219 ml Assessment & Plan Problem List: (1) Adjustment disorder with mixed anxiety and depressed mood ICD Code: F43.23 (2) Lower extremity pain, bilateral ICD Code: M79.604 Assessment & Plan Estimated LOS: days patient continues quite anxious labile with increased somatic complaints Justification for Cont. Inpt. At this time patient would severely decompensated placed on the lower level of care Discharge Planning To be determined Request HC Surrog/Guard Advoc?: No Felipe Ro MD May 05, 2016 16:08
[2016-05-05] MEDS ORDERED: diphenhydrAMINE HCL 50 MG/ML VIAL ONE (16:46)
[2016-05-05] MEDS ORDERED: HALOPERIDOL LACTATE 5 MG/ML AMP ONE (16:47)
[2016-05-05] MEDS ORDERED: HALOPERIDOL LACTATE 5 MG/ML AMP IM ONE (17:15)
[2016-05-05] MEDS ORDERED: diphenhydrAMINE HCL 50 MG/ML VIAL IM ONE (17:15)
[2016-05-05] MEDS: MELATONIN 5 MG TAB PO SCH (21:27)
[2016-05-05] MEDS: ATORVASTATIN 20 MG TAB PO SCH (21:27)
[2016-05-06] VITALS (8 sets, daily range): BP systolic 112–161; BP diastolic 55–97; PULSE 58–88; RESP 16–22; TEMP 97.7–98.6; O2SAT 93–99
[2016-05-06] MEDS: LORazepam 0.5 MG TAB PO PRN ×2 (00:41→15:52)
[2016-05-06] MEDS: metroNIDAZOLE 500 MG INJ 100 ML IV SCH ×3 (03:00→19:00)
[2016-05-06] MEDS: ACETAMINOPHEN/HYDROcodone 325 MG/10 MG TAB PO PRN ×3 (04:17→21:19)
[2016-05-06] MEDS: AZTREONAM INJ 1,000 MG in SODIUM CHLORIDE 0.9% INJ 100 ML IV SCH ×3 (04:18→21:00)
[2016-05-06] MEDS: BACITRACIN TOP OINT 15 GM TUBE TOP SCH ×3 (05:30→21:20)
[2016-05-06 05:45] LABS: AUTOMATED NEUTROPHIL # 9.6 TH/MM3 (1.8-7.7); BASOPHIL % 0.3 % (0.0-2.0); EOSINOPHIL # 0.1 TH/MM3 (0-0.4); EOSINOPHIL % 0.6 % (0.0-4.0); HEMATOCRIT 22.9 % (35.0-46.0); HEMO FLAGS DIFF FINAL; LYMPH % 14.1 % (9.0-44.0); LYMPHOCYTE # 1.8 TH/MM3 (1.0-4.8); MEAN CELL VOLUME 86.7 FL (80.0-100.0); MEAN CORPUSCULAR HEMOGLOBIN 29.4 PG (27.0-34.0); MEAN CORPUSCULAR HGB CONC 33.9 % (32.0-36.0); MONO % 7.2 % (0.0-8.0); NEUT % 77.8 % (16.0-70.0); PLATELET COUNT 194 TH/MM3 (150-450); RED BLOOD COUNT 2.64 MIL/MM3 (4.00-5.30); RED CELL DISTRIBUTION WIDTH 15.4 % (11.6-17.2); WHITE BLOOD COUNT 12.4 TH/MM3 (4.0-11.0)
[2016-05-06 06:31] LABS: ALKALINE PHOSPHATASE 93 U/L (45-117); ALT (GPT) 28 U/L (10-53); ANION GAP 8 MEQ/L (5-15); AST (GOT) 52 U/L (15-37); BICARBONATE 23.6 MEQ/L (21.0-32.0); BLOOD UREA NITROGEN 19 MG/DL (7-18); CHLORIDE 108 MEQ/L (98-107); GLOMERULAR FILTRATION RATE 56 ML/MIN (>89); MAGNESIUM 2.2 MG/DL (1.5-2.5); POTASSIUM 4.1 MEQ/L (3.5-5.1); SODIUM (NA) 140 MEQ/L (136-145); TOTAL BILIRUBIN ADULT 0.6 MG/DL (0.2-1.0)
[2016-05-06] MEDS: INSULIN ASPART SUPPLEMENTAL SCALE SQ SCH ×4 (07:00→21:00)
[2016-05-06] MEDS: ISOSORBIDE MONONITRATE 30 MG TAB PO SCH (09:00)
[2016-05-06] MEDS: INSULIN DETEMIR 100 UNITS/ML VIAL SQ SCH ×2 (09:00→21:34)
[2016-05-06] MEDS: GABAPENTIN 100 MG CAP PO SCH ×3 (09:06→18:50)
[2016-05-06] MEDS: POLYETHYLENE GLYCOL 17 GM PKG PO SCH (09:07)
[2016-05-06] MEDS: PANTOPRAZOLE SOD 40 MG DELAYED RELEASE TAB PO SCH (09:07)
[2016-05-06] MEDS: NYSTATIN 100,000 U/GM PWD 15 GM BTL TOPICAL SCH ×2 (09:07→21:20)
[2016-05-06] MEDS: DABIGATRAN ETEXILATE 150 MG CAP PO SCH (09:07)
--- NOTE | 2016-05-06 09:44 | HHI.PR ---
Subjective Remarks Follow-up visit sepsis, congestion/ SOB/ Dyspnea, left lower extremity cellulitis. Patient seen today. Awake alert, very responsive. Very anxious. States she still fell SOB, on 2L nc. She feels better when she sits up. Patient was given x1 dose 40mg lasix yesterday PM. Denies pain and discomfort. Denies chestpain, palpitations, headaches, dizziness. Denies fevers, chills, n/v /d. Objective Vitals Vital Signs Date Time Temp Pulse Resp B/P Pulse Ox O2 Delivery O2 Flow Rate FiO2 05/06/16 08:31 98.0 88 20 126/97 95 05/06/16 08:27 98.6 58 18 161/72 98 05/06/16 08:27 93 Nasal Cannula 2.00 05/06/16 08:25 98.6 58 16 112/55 95 05/06/16 05:52 98.0 88 22 125/58 95 05/06/16 02:10 96 Nasal Cannula 2.00 05/05/16 21:36 100.6 105 18 125/59 94 05/05/16 19:20 99.4 119 20 160/79 95 05/05/16 19:02 92 05/05/16 19:00 91 05/05/16 15:03 92 Nasal Cannula 2.00 05/05/16 12:00 97.8 81 18 137/60 97 05/05/16 12:00 97.8 81 18 137/60 97 I/O 05/05/16 05/05/16 05/05/16 05/06/16 05/06/16 05/06/16 07:00 15:00 23:00 07:00 15:00 23:00 Intake Total 360 ml 520 ml 1420 ml Output Total 2238 ml 200 ml 1200 ml 350 ml Balance -2238 ml 160 ml -680 ml 1070 ml Intake Oral 360 ml 360 ml 720 ml IV Total 160 ml 700 ml Output Urine Total 1738 ml 200 ml 1200 ml 350 ml Stool Total 500 ml # Voids 1 # Bowel Movements 1 1 Result Diagram: 05/06/16 0512 05/06/16 0512 Imaging Last Impressions Lower Extremity Ultrasound 05/05/16 0000 Signed Impressions: Service Date/Time: Thursday, May 05, 2016 07:45 - CONCLUSION: Negative for deep venous thrombosis.. Dhiraj Jose MD FACR Chest X-Ray 05/05/16 0000 Signed Impressions: Service Date/Time: Thursday, May 05, 2016 15:34 - CONCLUSION: 1. Moderate pulmonary vascular congestion or pneumonia is noted. Clinical correlation is recommended. 2. Degenerative changes throughout the thoracic spine. Radu Hurley MD Abdomen/Pelvis CT 05/02/16 1615 Signed Impressions: Service Date/Time: April 19:03 - CONCLUSION: 1. Large stool in the rectum. Nonobstructive pattern. No inflammatory changes. 2. Severe atherosclerosis of the abdominal aorta and branch vessels. No aneurysm. 3. Distended urinary bladder at the time of imaging and please correlate clinically. 4. Severe lumbar spine degenerative changes. No acute bony abnormality seen. 5. Fat-containing umbilical hernia. Felipe Mckinnon MD Pelvis CT 05/02/16 0000 Signed Impressions: Service Date/Time: , May 02, 2016 19:03 - CONCLUSION: Intact pelvis. Felipe Mckinnon MD Lower Extremity CT 05/02/16 0000 Signed Impressions: Service Date/Time: , May 02, 2016 19:03 - CONCLUSION: Intact right hip. Felipe Mckinnon MD Hip and Pelvis X-Ray 04/15/16 0000 Signed Impressions: Service Date/Time: Friday, April 15, 2016 09:15 - CONCLUSION: Osteopenia, negative for fracture. CT scanning would be more sensitive the patient remains symptomatic Dhiraj Jose MD FACR Objective Remarks GENERAL: This is a well-nourished, well-developed patient, in no apparent distress. HEENT: Normocephalic. Pupils equal round and reactive. Nose without bleeding. Airway patent. NECK: Trachea midline. No JVD. Supple. CARDIOVASCULAR: Regular rate and rhythm without murmurs, gallops, or rubs. RESPIRATORY: Bilateral upper lobe with rhonchi. Fair to good air exchange. GASTROINTESTINAL: Abdomen soft, non-tender, nondistended. Bowel Sounds hypoactive x4. : Reyes cath draining clear yellow urine. MUSCULOSKELETAL: Extremities without clubbing, cyanosis, trace bilateral lower extremity edema. Left lower extremity erythema decreased in size but appears to be darker.. NEUROLOGICAL: Awake and alert. No focal neuro deficit. AYERS. Normal speech. Urinary Catheter: Yes Reyes insert reason: Obstruction/Retention A/P Problem List: (1) Lower extremity pain, bilateral ICD Code: M79.604 Status: Acute (2) Adjustment disorder with mixed anxiety and depressed mood ICD Code: F43.23 Status: Acute (3) DM (diabetes mellitus) ICD Code: E11.9 Status: Acute Assessment and Plan Pleasant 75-year-old female patient currently inpatient psychiatric center we have been consulted for assistance with hypertension and diabetes mellitus. Patient is on Pradaxa reports some kind of heart rhythm problem in the past requiring pacemaker placement question atrial fibrillation. Encephalopathy - probably secondary to sepsis. Improved. More responsive, answers questions and follows commands. SIRS, Sepsis - elevated WBC 30.1, febrile at 102, unknown source for now, ? PPM involvement - UA negative, CXR unremarkable - BC no growth in one day - ID Following. CT of the abdomen and pelvis recommended and was done. - 05/02/15 CT abdomen/pelvis large stool in the rectum. Nonobstructive pattern. No inflammatory changes. Severe atherosclerosis of the abdominal aorta and branch vessels. No aneurysm. Distended urinary bladder at the time of imaging please correlate clinically. Severe lumbar spine degenerative disease. No acute bony abnormality seen. Fat-containing umbilical hernia. Patient was ordered fleets enema, MOM, bowel regimen. 05/03/15 -Lactate 2.7 --> 1.8 improved. Leukocytosis 30.1 --> 28.2 --> 12.6 -- > 12.4 today slightly improved Left lower extremity cellulitis - IV antibiotics switched to Prozac time, Flagyl , Vanco per ID recommendation - Repeat Doppler studies negative for DVTs - Will check with ID for switching antibiotics to PO since leukocytosis and cellulitis appears to be improved. Urinary retention - Reyes catheter inserted, clear yellow urine - Trial DC Reyes by Friday. If continues to have retention will consult urology. - Unable to DC reyes secondary to congestion. Urology consulted. 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 previously hypotensive, 1L fluid bolus given, BP improved but developed congestion. - CXR 1. Moderate pulmonary vascular congestion or pneumonia is noted. Clinical correlation is recommended. 2. Degenerative changes throughout the thoracic spine. - LAsix 40mg given x1 yesterday. On 2L NC - BS with good air movement. Keep reyes for now secondary to retention HTN -hold lisinopril to 20mg BID and atenolol, cont clonidine as needed, due to hypotensive episode. Monitor vital signs per protocol Diabetes mellitus. Levemir to 20 units twice a day Accu-Cheks before meals at bedtime with sliding scale insulin coverage Diabetic diet. - Hold metformin 500 mg twice a day secondary to SOBEIDA. Continue sliding scale and basal. - Monitor accuchecks Anemia - H/H dropped 7.8. Possibly hemodilutional. Monitor H/H trend - Hemoccult ordered. Question atrial fibrillation history of cardiac arrhythmia requiring pacemaker on Pradaxa at home Will continue Pradaxa Constipation Continue bowel regimen Chronic bilateral lower extremity pain continue [place] 10 mg every 4 hours as needed for pain as well as Neurontin 600 mg by mouth daily at bedtime Left knee exam consistent with advanced osteoarthritis recommend outpatient orthopedic surgery consult after discharge - Neurontin decreased to 100 mg 3 times a day - 05/02/[address] showed intact right hip, pelvic CT shows intact pelvis. DVT prophylaxis pradaxa Written by Vince Barrett, acting as scribe for Dr. Gonzalez on 05/06/16 at 10: 15. Attending Statement The documentation accurately reflects the work performed [id number] by me on at 10:15. Vince Mtz May 06, 2016 09:44 Alverto Lira MD May 16, 2016 00:21
--- NOTE | 2016-05-06 12:21 | HHI.PYPN ---
Subjective Remarks Patient was seen today for psychiatric reevaluation, she was calm and cooperative, patient states that she is in a better mood today, she explains that she had a very hard day yesterday with food pain and SOB, but today is much better, she described her mood as fine, she does report having problems sleeping at night, she says that she is not sleeping more than 2 hours and during the day she feels tired. Patient denies suicidal or homicidal ideation, she denies visual and auditory hallucinations, as per nursing staff during the last 24 hours patient has been labile, irritable at times, but redirectable. Patient is fully oriented 3. Review of Systems Constitutional: COMPLAINS OF: Fatigue Endocrine: DENIES: Abnorml menstrual pattern, Heat/cold intolerance, Polydipsia , Polyuria, Polyphagia Eyes: DENIES: Blurred vision, Diplopia, Eye inflammation, Eye pain, Vision loss , Photosensitivity, Double Vision Respiratory: COMPLAINS OF: Cough, Shortness of breath Cardiovascular: DENIES: Chest pain, Palpitations, Syncope, Dyspnea on Exertion , PND, Lower Extremity Edema, Orthopnea, Claudication Gastrointestinal: DENIES: Abdominal pain, Black stools, Bloody stools, Constipation, Diarrhea, Nausea, Vomiting, Difficulty Swallowing, Anorexia Integumentary: DENIES: Abnormal pigmentation, Pruritus, Rash, Nail changes, Breast masses, Breast skin changes, Nipple discharge Hematologic/lymphatic: DENIES: Bruising, Lymphadenopathy Immunologic/allergic: DENIES: Eczema, Urticaria Neurologic: DENIES: Abnormal gait, Headache, Localized weakness, Paresthesias, Seizures, Speech Problems, Tremor, Poor Balance Psychiatric: COMPLAINS OF: Anxiety Objective Alert: Yes [place]: Person, Place, Date, Situation Mood: Calm Affect: Euthymic Memory Intact: Immediate, Recent, Remote, Comment Hallucinations: Other (she denies) Delusions: No Delusion Type: Other (none) Suicidal: Ideation (she denies) Homicidal: Ideation (she denies) Insight/Judgement fair Labs Test 05/06/16 05:12 White Blood Count 12.4 TH/MM3 Red Blood Count 2.64 MIL/MM3 Hemoglobin 7.8 GM/DL Hematocrit 22.9 % Mean Corpuscular Volume 86.7 FL Mean Corpuscular Hemoglobin 29.4 PG Mean Corpuscular Hemoglobin 33.9 % Concent Red Cell Distribution Width 15.4 % Platelet Count 194 TH/MM3 Mean Platelet Volume 8.5 FL Neutrophils (%) (Auto) 77.8 % Lymphocytes (%) (Auto) 14.1 % Monocytes (%) (Auto) 7.2 % Eosinophils (%) (Auto) 0.6 % Basophils (%) (Auto) 0.3 % Neutrophils # (Auto) 9.6 TH/MM3 Lymphocytes # (Auto) 1.8 TH/MM3 Monocytes # (Auto) 0.9 TH/MM3 Eosinophils # (Auto) 0.1 TH/MM3 Basophils # (Auto) 0.0 TH/MM3 CBC Comment DIFF FINAL Differential Comment Sodium Level 140 MEQ/L Potassium Level 4.1 MEQ/L Chloride Level 108 MEQ/L Carbon Dioxide Level 23.6 MEQ/L Anion Gap 8 MEQ/L Blood Urea Nitrogen 19 MG/DL Creatinine 0.98 MG/DL Estimat Glomerular Filtration 56 ML/MIN Rate Random Glucose 265 MG/DL Calcium Level 7.8 MG/DL Phosphorus Level 2.0 MG/DL Magnesium Level 2.2 MG/DL Total Bilirubin 0.6 MG/DL Aspartate Amino Transf 52 U/L (AST/SGOT) Alanine Aminotransferase 28 U/L (ALT/SGPT) Alkaline Phosphatase 93 U/L Total Protein 5.9 GM/DL Albumin 2.6 GM/DL Date/Time Procedure Status Source Growth 05/06/16 11:20 Stool Occult Blood (GABRIELLE) Received Stool Stool Pending 05/02/16 20:30 Aerobic Blood Culture - Preliminary Resulted Blood Peripheral NO GROWTH IN 4 DAYS 05/02/16 20:30 Anaerobic Blood Culture - Preliminary Resulted Blood Peripheral NO GROWTH IN 4 DAYS Vitals/IOs Vital Signs Date Time Temp Pulse Resp B/P Pulse Ox O2 Delivery O2 Flow Rate FiO2 05/06/16 08:31 98.0 88 20 126/97 95 05/06/16 08:27 Nasal Cannula 2.00 Intake and Output 05/05/16 05/05/16 05/06/16 08:00 16:00 00:00 Intake Total 360 ml 520 ml Output Total 2238 ml 200 ml 1200 ml Balance -2238 ml 160 ml -680 ml Assessment & Plan Problem List: (1) Adjustment disorder with mixed anxiety and depressed mood Assessment & Plan: On psychiatric evaluation today the patient does not present any significant evidence of depression, anxiety, perceptual disturbances , confusion or delirium. Patient denies suicidal ideation. She reports insomnia and fatigue, which is more probably related with sob and CHF the compensation. As per nursing staff patient has been irritable, labile sometimes uncooperative. Will start Seroquel 25 mg twice a day for behavioral control. ICD Code: F43.23 (2) Lower extremity pain, bilateral ICD Code: M79.604 Assessment & Plan Estimated LOS: days Justification for Cont. Inpt. Patient is psychiatrically stabilization, medication adjustment, and coordinating safe placement Request HC Surrog/Guard Advoc?: No Olivier Dumont MD May 06, 2016 12:21
[2016-05-06] MEDS: VANCOMYCIN INJ 2,000 MG in SODIUM CHLORID 0.9% 500 ML INJ 500 ML IV SCH (12:30)
--- NOTE | 2016-05-06 20:11 | PD.CONS ---
HPI Service Urology Consult Requested By Reason for Consult Urinary retention Primary Care Physician Unknown Diagnosis: (1) Lower extremity pain, bilateral ICD Code: M79.604 (2) Adjustment disorder with mixed anxiety and depressed mood ICD Code: F43.23 (3) DM (diabetes mellitus) ICD Code: E11.9 History of Present Illness 75yo female wit history of DM and HTN admitted for suicidal ideations seen in consultation for urinary retention. Patient reports she has been able to void without issues prior to hospitalization. She denies any previous lower urinary tract symptoms, but does admit to occasional urinary incontinence. Denies any hematuria. She has never had a catheter before. She is currently being treated for a left lower extremity cellulitis Review of Systems ROS Limitations: Clinical Condition Constitutional: DENIES: Fever Eyes: DENIES: Blurred vision, Vision loss Ears, nose, mouth, throat: DENIES: Hearing loss Respiratory: DENIES: Apneas Cardiovascular: DENIES: Chest pain Gastrointestinal: DENIES: Abdominal pain Genitourinary: COMPLAINS OF: Urinary frequency, Urinary incontinence, DENIES: Hematuria Integumentary: COMPLAINS OF: Rash Neurologic: DENIES: Headache Psychiatric: COMPLAINS OF: Suicidal Ideation Past Family Social History Past Medical History hypertension, diabetes mellitus insulin-dependent, GERD and prior cardiac arrhythmia requiring pacemaker placement Past Surgical History Cholecystectomy, pacemaker placement Reported Medications Reported Meds & Active Scripts Active Pantoprazole (Pantoprazole Sodium) 40 Mg Tab 40 Mg PO DAILY Lisinopril 20 Mg Tab 20 Mg PO BID Isosorbide Mononitrate ER (Isosorbide Mononitrate) 30 Mg Daja 30 Mg PO DAILY Levemir Inj (Insulin Detemir) 1,000 unit/ 10 ML Vial 30 Units SQ HS Neurontin (Gabapentin) 300 Mg Cap 600 Mg PO 2 PO HS Furosemide 20 Mg Tab 20 Mg PO DAILY Pradaxa (Dabigatran) 150 Mg Cap 150 Mg PO DAILY Lipitor (Atorvastatin Calcium) 20 Mg Tab 20 Mg PO HS Atenolol 25 Mg Tab 25 Mg PO DAILY Reported Fentanyl Patch 72 HR (Fentanyl) 25 Mcg/Hr Patch 25 Mcg T-DERMAL Q72H Humalog Kwikpen Pen Inj (Insulin Lispro (Human) Inj) 300 Unit/3 Ml Pen 10 Units SQ DIRECTED Levemir Inj (Insulin Detemir) 1,000 unit/ 10 ML Vial 30 Units SQ HS Do not mix with any other Insulin. Atenolol 25 Mg Tab 25 Mg PO DAILY Clindamycin (Clindamycin HCl) 150 Mg Cap 150 Mg PO TID Hydrocodone-Acetaminophen 5-325 mg Tab 1 Tab PO Q12HR PRN Hydrocodone-AC (Hydrocodone-Acetaminophen) 2.5-325 Mg Tab 5 Escitalopram (Escitalopram Oxalate) 10 Mg Tab 10 Mg PO DAILY Trazodone (Trazodone HCl) 50 Mg Tab 50 Mg PO HS Clonazepam 0.5 Mg Tab 0.5 Mg PO TID Gabapentin 600 Mg Tab 600 Mg PO HS Atorvastatin (Atorvastatin Calcium) 20 Mg Tab 20 Mg PO HS Lisinopril 20 Mg Tab 20 Mg PO DAILY Furosemide 20 Mg Tab 20 Mg PO DAILY Isosorbide Mononitrate ER (Isosorbide Mononitrate) 30 Mg Daja 30 Mg PO DAILY Pradaxa (Dabigatran) 150 Mg Cap 150 Mg PO DAILY Pantoprazole (Pantoprazole Sodium) 40 Mg Tab 40 Mg PO DAILY Sertraline (Sertraline HCl) 100 Mg Tab 100 Mg PO DAILY Allergies: Coded Allergies: Morphine (Verified Allergy, Intermediate, 04/10/16) Penicillin (Verified Allergy, Intermediate, HIVES, 04/10/16) Active Ordered Medications Current Medications Medications (Trade) Dose Ordered Sig/Meghan Route Start Time Stop Time Status Last Admin (Ativan) 0.5 mg Q12H PRN PO 04/11/16 09:15 05/06/16 15:52 (Ativan Inj) 0.5 mg Q12H PRN IM 04/11/16 09:15 04/29/16 00:30 (Tylenol) 650 mg Q4H PRN PO 04/11/16 09:15 04/27/16 02:04 (Mag-Al Plus Susp Liq) 30 ml Q6H PRN PO 04/11/16 09:15 05/05/16 09:13 (Tenormin) 25 mg DAILY PO 04/11/16 15:45 Hold 05/03/16 10:35 (Lipitor) 20 mg HS PO 04/11/16 21:00 05/05/16 21:27 (Pradaxa) 150 mg DAILY PO 04/12/16 09:00 05/06/16 09:07 (Lasix) 20 mg DAILY PO 04/12/16 09:00 Hold 05/03/16 10:35 (Imdur) 30 mg DAILY PO 04/12/16 09:00 05/06/16 09:00 (D50w (Vial) Inj) 25 ml UNSCH PRN IV PUSH 04/11/16 15:45 (Glucagon Inj) 1 mg UNSCH PRN OTHER 04/11/16 15:45 (Catapres) 0.1 mg Q6H PRN PO 04/12/16 16:00 04/13/16 12:26 (Prinivil) 20 mg BID PO 04/13/16 21:00 Hold 05/03/16 08:23 ([place] 10-325 Mg) 1 tab Q4H PRN PO 04/15/16 17:15 05/06/16 14:07 (Miralax) 17 gm DAILY PO 04/18/16 09:00 05/06/16 09:07 (Baciguent Oint) 1 applic Q8HR TOP 04/19/16 15:00 05/06/16 14:00 (Mycostatin Powder) 1 applic Q12HR TOPICAL 04/24/16 10:30 05/06/16 09:07 (Melatonin) 5 mg HS PO 04/27/16 21:00 05/05/16 21:27 (Levemir Inj) 20 units BID SQ 04/28/16 21:00 05/06/16 09:00 Metformin HCl 500 mg 500 mg BIDPC PO 04/30/16 18:00 Hold 05/01/16 17:58 (NS 1000 ml Inj) 1,000 ml @ 150 mls/hr Q6H40M IV 05/02/16 12:15 Hold 05/05/16 13:35 (Milk Of Magnesia Liq) 30 ml BID PRN PO 05/03/16 09:30 (Fleets Enema (Adult)) 133 ml UNSCH PRN IN 05/03/16 09:30 (Zofran Inj) 4 mg Q6H PRN IV PUSH 05/03/16 10:00 05/03/16 15:31 (Protonix) 40 mg DAILYAC PO 05/04/16 08:00 05/06/16 09:07 Gabapentin 100 mg 100 mg TID PO 05/03/16 13:00 05/06/16 18:50 Aztreonam 1000 mg/ Sodium Chloride 100 ml @ 200 mls/hr Q8H IV 05/03/16 21:00 05/06/16 13:00 Pharmacy Profile Note 0 ml @ 0 mls/hr UNSCH IV 05/03/16 20:00 (Vancomycin Inj/ NS 500 ml Inj) 520 ml @ 250 mls/hr Q24H IV 05/05/16 12:00 05/06/16 12:30 Miscellaneous Information SPECIFIC LAB TO BE DRAWN:VANCOMYCIN TROUGH DATE TO... ONCE ONCE XX 05/07/16 11:45 05/07/16 11:46 (Flagyl 500 Mg Inj) 100 ml @ 100 mls/hr Q8H IV 05/05/16 11:00 05/06/16 11:00 (SEROquel) 25 mg BID PO 05/06/16 21:00 Family History Aunt had diabetes Social History Patient denies EtOH use tobacco use or illicit drug use Physical Exam Vital Signs Vital Signs Date Time Temp Pulse Resp B/P Pulse Ox O2 Delivery O2 Flow Rate FiO2 05/06/16 18:58 97.7 86 16 117/57 97 05/06/16 13:04 98.1 82 18 112/57 99 05/06/16 08:31 98.0 88 20 126/97 95 05/06/16 08:27 98.6 58 18 161/72 98 05/06/16 08:27 93 Nasal Cannula 2.00 05/06/16 08:25 98.6 58 16 112/55 95 05/06/16 05:52 98.0 88 22 125/58 95 05/06/16 02:10 96 Nasal Cannula 2.00 05/05/16 21:36 100.6 105 18 125/59 94 Physical Exam GENERAL: This is a well-nourished, well-developed patient, in no apparent distress. SKIN: LLE cellulitis HEAD: Atraumatic. Normocephalic. EYES: Extraocular motions intact. . ENT: Nose without bleeding, purulent drainage. Airway patent. NECK: Trachea midline. CARDIOVASCULAR: Extremities well perfused RESPIRATORY: nonlabored, equal symmetric chest rise GASTROINTESTINAL: Obese with large pannus. : Reyes catheter in place with clear yellow urine noted MUSCULOSKELETAL: Extremities with cellulitis at the LLE. No other edema, or abnormalities NEUROLOGICAL: Awake and alert. Normal speech, however somewhat tangential Laboratory Laboratory Tests Test 05/06/16 05:12 White Blood Count 12.4 Red Blood Count 2.64 Hemoglobin 7.8 Hematocrit 22.9 Mean Corpuscular Volume 86.7 Mean Corpuscular Hemoglobin 29.4 Mean Corpuscular Hemoglobin 33.9 Concent Red Cell Distribution Width 15.4 Platelet Count 194 Mean Platelet Volume 8.5 Neutrophils (%) (Auto) 77.8 Lymphocytes (%) (Auto) 14.1 Monocytes (%) (Auto) 7.2 Eosinophils (%) (Auto) 0.6 Basophils (%) (Auto) 0.3 Neutrophils # (Auto) 9.6 Lymphocytes # (Auto) 1.8 Monocytes # (Auto) 0.9 Eosinophils # (Auto) 0.1 Basophils # (Auto) 0.0 CBC Comment DIFF FINAL Differential Comment Sodium Level 140 Potassium Level 4.1 Chloride Level 108 Carbon Dioxide Level 23.6 Anion Gap 8 Blood Urea Nitrogen 19 Creatinine 0.98 Estimat Glomerular Filtration 56 Rate Random Glucose 265 Calcium Level 7.8 Phosphorus Level 2.0 Magnesium Level 2.2 Total Bilirubin 0.6 Aspartate Amino Transf 52 (AST/SGOT) Alanine Aminotransferase 28 (ALT/SGPT) Alkaline Phosphatase 93 Total Protein 5.9 Albumin 2.6 Date/Time Procedure Status Source Growth 05/06/16 11:20 Stool Occult Blood (GABRIELLE) - Final Complete Stool Stool HEMOCCULT NEGATIVE 05/02/16 20:30 Aerobic Blood Culture - Preliminary Resulted Blood Peripheral NO GROWTH IN 4 DAYS 05/02/16 20:30 Anaerobic Blood Culture - Preliminary Resulted Blood Peripheral NO GROWTH IN 4 DAYS Result Diagram: 05/06/16 0512 05/06/16 0512 Imaging Last 48 hours Impressions Lower Extremity Ultrasound 05/05/16 0000 Signed Impressions: Service Date/Time: Thursday, May 05, 2016 07:45 - CONCLUSION: Negative for deep venous thrombosis.. Dhiraj Jose MD FACR Chest X-Ray 05/05/16 0000 Signed Impressions: Service Date/Time: Thursday, May 05, 2016 15:34 - CONCLUSION: 1. Moderate pulmonary vascular congestion or pneumonia is noted. Clinical correlation is recommended. 2. Degenerative changes throughout the thoracic spine. Radu Hurley MD Assessment and Plan Problem List: (1) DM (diabetes mellitus) ICD Code: E11.9 Status: Acute Assessment and Plan 75yo female with Urinary retention -No history of significant lower urinary tract symptoms -May remove reyes catheter prior to discharge -If patient unable to void,may replace catheter with follow-up in Urology clinic for further evaluation regarding her urinary retention, which may be attributed to her DM -Please call with questions Leroy Medeiros MD May 06, 2016 20:11
[2016-05-06] MEDS: MELATONIN 5 MG TAB PO SCH (21:19)
[2016-05-06] MEDS: ATORVASTATIN 20 MG TAB PO SCH (21:20)
[2016-05-06] MEDS: QUEtiapine FUMARATE 25 MG TAB PO SCH (21:20)
[2016-05-07 02:00] VITALS: BP 115/60; PULSE 60; RESP 16; TEMP 98; O2SAT 98
[2016-05-07] MEDS: metroNIDAZOLE 500 MG INJ 100 ML IV SCH ×2 (03:36→11:00)
[2016-05-07] MEDS: AZTREONAM INJ 1,000 MG in SODIUM CHLORIDE 0.9% INJ 100 ML IV SCH ×2 (04:47→13:00)
[2016-05-07] MEDS: BACITRACIN TOP OINT 15 GM TUBE TOP SCH ×3 (05:01→20:34)
[2016-05-07] MEDS: INSULIN ASPART SUPPLEMENTAL SCALE SQ SCH ×4 (05:20→20:33)
[2016-05-07 06:02] VITALS: BP 100/49; PULSE 75; RESP 18; TEMP 97.8; O2SAT 95
[2016-05-07] MEDS ORDERED: DEXT 5%-NACL 0.45% 1000 ML INJ 1,000 ML IV SCH (06:30)
[2016-05-07] MEDS ORDERED: DEXTROSE 50% IN WATER 50 ML VIAL(D50) IV PUSH ONE (06:30)
[2016-05-07 07:00] VITALS: O2SAT 99
[2016-05-07] MEDS: PANTOPRAZOLE SOD 40 MG DELAYED RELEASE TAB PO SCH (08:00)
[2016-05-07 08:10] VITALS: BP_SYST 124; BP_SYST 138; BP_DIAS 63; BP_DIAS 65; PULSE 81; PULSE 92; RESP 18; TEMP 97.5; TEMP 98.6; O2SAT 99
[2016-05-07] MEDS: ACETAMINOPHEN/HYDROcodone 325 MG/10 MG TAB PO PRN ×2 (08:59→18:33)
[2016-05-07] MEDS: ISOSORBIDE MONONITRATE 30 MG TAB PO SCH (09:00)
[2016-05-07] MEDS: QUEtiapine FUMARATE 25 MG TAB PO SCH ×2 (09:00→20:32)
[2016-05-07] MEDS: GABAPENTIN 100 MG CAP PO SCH ×3 (09:00→17:50)
[2016-05-07] MEDS: POLYETHYLENE GLYCOL 17 GM PKG PO SCH (09:00)
[2016-05-07] MEDS: DABIGATRAN ETEXILATE 150 MG CAP PO SCH (09:00)
[2016-05-07] MEDS: NYSTATIN 100,000 U/GM PWD 15 GM BTL TOPICAL SCH ×2 (09:00→20:32)
[2016-05-07] MEDS ORDERED: DEXTROSE 50% IN WATER 50 ML VIAL(D50) IV PUSH PRN (11:00)
[2016-05-07] MEDS ORDERED: GLUCAGON 1 MG/ML VIAL OTHER PRN (11:00)
--- NOTE | 2016-05-07 11:36 | HHI.PYPN ---
Subjective Remarks Patient seen for psychiatric evaluation today, at the beginning of the evaluation she was a little bit irritable, labile, but completely redirectable. She expresses her concern about her medical conditions, prognosis, and also about the discharge plan. However, patient says that she feels happy to be here in the unit, likes the people, the food and care. Patient denies suicidal or homicidal ideation. She says that at time she is sad when she remembers how did she took her of his mother until the end "and now nobody is taking care of me", she was also able to share memories about her "who was a real gentleman and brave soldier". Patient is fully oriented 3, no attention deficit, fluctuation of consciousness observed. She complains of some difficulty sleeping at night. Review of Systems Constitutional: DENIES: Diaphoretic episodes, Fatigue, Fever, Weight gain, Weight loss, Chills, Dizziness, Change in appetite, Night Sweats Endocrine: DENIES: Abnorml menstrual pattern, Heat/cold intolerance, Polydipsia , Polyuria, Polyphagia Ears, nose, mouth, throat: DENIES: Tinnitus, Hearing loss, Vertigo, Nasal discharge, Oral lesions, Throat pain, Hoarseness, Ear Pain, Running Nose, Epistaxis, Sinus Pain, Toothache, Odynophagia Cardiovascular: DENIES: Chest pain, Palpitations, Syncope, Dyspnea on Exertion , PND, Lower Extremity Edema, Orthopnea, Claudication Gastrointestinal: DENIES: Abdominal pain, Black stools, Bloody stools, Constipation, Diarrhea, Nausea, Vomiting, Difficulty Swallowing, Anorexia Musculoskeletal: COMPLAINS OF: Joint pain, Back pain Integumentary: DENIES: Abnormal pigmentation, Pruritus, Rash, Nail changes, Breast masses, Breast skin changes, Nipple discharge Hematologic/lymphatic: DENIES: Bruising, Lymphadenopathy Immunologic/allergic: DENIES: Eczema, Urticaria Neurologic: DENIES: Abnormal gait, Headache, Localized weakness, Paresthesias, Seizures, Speech Problems, Tremor, Poor Balance Psychiatric: DENIES: Anxiety, Confusion, Mood changes, Depression, Hallucinations, Agitation, Suicidal Ideation, Homicidal Ideation, Delusions Objective Alert: Yes [place]: Person, Place, Date, Situation Mood: Calm Affect: Euthymic Memory Intact: Immediate, Recent, Remote, Comment Hallucinations: Other (she denies) Delusions: No Delusion Type: Other (none) Suicidal: Ideation (she denies) Homicidal: Ideation (she denies) Insight/Judgement Improved Labs Test 05/07/16 06:35 Creatinine 0.58 MG/DL Estimat Glomerular Filtration 102 ML/MIN Rate Random Glucose 50 MG/DL Date/Time Procedure Status Source Growth 05/06/16 11:20 Stool Occult Blood (GABRIELLE) - Final Complete Stool Stool HEMOCCULT NEGATIVE 05/02/16 20:30 Aerobic Blood Culture - Final Complete Blood Peripheral NO GROWTH IN 5 DAYS 05/02/16 20:30 Anaerobic Blood Culture - Final Complete Blood Peripheral NO GROWTH IN 5 DAYS Vitals/IOs Vital Signs Date Time Temp Pulse Resp B/P Pulse Ox O2 Delivery O2 Flow Rate FiO2 05/07/16 08:10 97.5 81 18 138/65 99 05/07/16 07:00 Nasal Cannula 2.00 Intake and Output 05/06/16 05/06/16 05/07/16 08:00 16:00 00:00 Intake Total 1420 ml 940 ml 1416 ml Output Total 350 ml 300 ml Balance 1070 ml 640 ml 1416 ml Assessment & Plan Problem List: (1) Adjustment disorder with mixed anxiety and depressed mood Assessment & Plan: Psychotic evaluation today patient still shows some labile mood, irritability, but denies depression, denies anxiety, denies suicidal or homicidal ideation, denies visual and auditory hallucinations. She also reports difficulty sleeping at night. We will increase Seroquel to 50 mg twice a day to help with mood and sleep at night. We'll continue working in discharge process. ICD Code: F43.23 (2) Lower extremity pain, bilateral ICD Code: M79.604 Assessment & Plan Estimated LOS: days Justification for Cont. Inpt. Working in the coordination of safe discharge. Request HC Surrog/Guard Advoc?: No Olivier Dumont MD May 07, 2016 11:36
--- NOTE | 2016-05-07 11:43 | HHI.PR ---
Subjective Remarks Follow-up visit sepsis, congestion/ SOB/ Dyspnea, left lower extremity cellulitis. Patient seen today. Resting able to awake to verbal stimuli. Denies chest pain, palpitations, headaches, dizziness. Denies fevers, chills, n/ v/d. Complains of dryness bilateral nares. Denies evidence of bright red blood per rectum or tarry stools. Patient denies nausea/vomiting. Also denies feeling lightheaded and dizzy or weak. Does appear pale hemoglobin 7.8 today Objective Vitals Vital Signs Date Time Temp Pulse Resp B/P Pulse Ox O2 Delivery O2 Flow Rate FiO2 05/07/16 08:10 97.5 81 18 138/65 99 05/07/16 07:00 99 Nasal Cannula 2.00 05/07/16 06:02 97.8 75 18 100/49 95 05/07/16 02:00 98.0 60 16 115/60 98 05/06/16 22:59 16 05/06/16 21:44 97 Nasal Cannula 2.00 05/06/16 18:58 97.7 86 16 117/57 97 05/06/16 13:04 98.1 82 18 112/57 99 I/O 05/06/16 05/06/16 05/06/16 05/07/16 05/07/16 05/07/16 07:00 15:00 23:00 07:00 15:00 23:00 Intake Total 1420 ml 2356 ml 440 ml Output Total 350 ml 300 ml 650 ml Balance 1070 ml 2056 ml -210 ml Intake Oral 720 ml 940 ml 240 ml IV Total 700 ml 1416 ml 200 ml Output Urine Total 350 ml 300 ml 650 ml # Voids 1 # Bowel Movements 1 0 Result Diagram: 05/06/16 0512 05/07/16 0635 Objective Remarks GENERAL: This is a well-nourished, well-developed patient, in no apparent distress. SKIN: Bilateral lower extremity erythema greatly improved HEENT: Normocephalic. Pupils equal round and reactive. Nose without bleeding. Airway patent. NECK: Trachea midline. No JVD. Supple. CARDIOVASCULAR: Regular rate and rhythm without murmurs, gallops, or rubs. RESPIRATORY: Bilateral upper lobe with rhonchi. Fair to good air exchange. GASTROINTESTINAL: Abdomen soft, non-tender, nondistended. Bowel Sounds hypoactive x4. : Arevalo cath draining clear yellow urine. MUSCULOSKELETAL: Extremities without clubbing, cyanosis, trace bilateral lower extremity edema. NEUROLOGICAL: Awake and alert. No focal neuro deficit. AYERS. Normal speech. A/P Problem List: (1) Lower extremity pain, bilateral ICD Code: M79.604 Status: Acute (2) Adjustment disorder with mixed anxiety and depressed mood ICD Code: F43.23 Status: Acute (3) DM (diabetes mellitus) ICD Code: E11.9 Status: Acute Assessment and Plan Pleasant 75-year-old female patient currently inpatient psychiatric center we have been consulted for assistance with hypertension and diabetes mellitus. Patient is on Pradaxa reports some kind of heart rhythm problem in the past requiring pacemaker placement question atrial fibrillation. Encephalopathy - probably secondary to sepsis. Improved. More responsive, answers questions and follows commands. SIRS, Sepsis - elevated WBC 30.1, febrile at 102, unknown source for now, ? PPM involvement - UA negative, CXR unremarkable - BC no growth in one day - ID Following. CT of the abdomen and pelvis recommended and was done. - 05/02/15 CT abdomen/pelvis large stool in the rectum. Nonobstructive pattern. No inflammatory changes. Severe atherosclerosis of the abdominal aorta and branch vessels. No aneurysm. Distended urinary bladder at the time of imaging please correlate clinically. Severe lumbar spine degenerative disease. No acute bony abnormality seen. Fat-containing umbilical hernia. Patient was ordered fleets enema, MOM, bowel regimen. 05/03/15 -Lactate 2.7 --> 1.8 improved. Leukocytosis 30.1 --> 28.2 --> 12.6 -- > 12.4 CBC for today pending Left lower extremity cellulitis - IV antibiotics, Flagyl, Vanco per ID recommendation - Repeat Doppler studies negative for DVTs - Will check with ID for switching antibiotics to PO since leukocytosis and cellulitis appears to be improved. Urinary retention - Arevalo catheter inserted, clear yellow urine -Also followed by urology- recommend voiding trial with patient unable to void replace Arevalo catheter and follow-up with outpatient urology - Will DC Arevalo catheter RN to call if patient unable to void after 6 hours Acute Kidney injury - VALUATION MANAGER 1.66 --> 1.79 -->1.13 --> 0.90 - Avoid nephrotoxins Fluid overload, Congestion - Pt. previously hypotensive, 1L fluid bolus given, BP improved but developed congestion.- DC IV fluids - CXR 1. Moderate pulmonary vascular congestion or pneumonia is noted. Clinical correlation is recommended. 2. Degenerative changes throughout the thoracic spine. - LAsix 40mg given x1 now on room air - good air movement HTN -hold lisinopril to 20mg BID and atenolol, cont clonidine as needed, due to hypotensive episode. Monitor vital signs per protocol Diabetes mellitus. - Hyperglycemic episodes day down to 46 3 AM long-acting insulin on hold - Dextrose IV given current blood sugars 150 will DC dextrose and continue to monitor closely- patient is eating and drinking - Monitor accuchecks Anemia - H/H dropped 7.8. Monitor H/H trend - Hemoccult negative, patient and RN to denies signs of active bleeding - Recheck CBC today pending, Recheck CBC in a.m., iron panel- patient does report history of iron deficiency anemia Question atrial fibrillation history of cardiac arrhythmia requiring pacemaker on Pradaxa at home Will continue Pradaxa Constipation Continue bowel regimen Chronic bilateral lower extremity pain continue [place] 10 mg every 4 hours as needed for pain as well as Left knee exam consistent with advanced osteoarthritis recommend outpatient orthopedic surgery consult after discharge - Neurontin 100 mg 3 times a day - 05/02/[address] showed intact right hip, pelvic CT shows intact pelvis. DVT prophylaxis pradaxa Written by Roberta Medina, acting as scribe for Dr. Gonzalez on 05/07/16 at 11:43. Dr. Gonzalez discussed case with Dr. Cain infectious disease. Dr. Cain recommended DC IV antibiotics and start doxycycline and Keflex by mouth. Attending Statement The documentation accurately reflects the work performed [id number] by me on at 11:43. Roberta Medina May 07, 2016 11:43 Alverto Lira MD May 16, 2016 02:12
[2016-05-07] MEDS ORDERED: PHARMACY ORDERED LAB XX ONE (11:45)
[2016-05-07] MEDS ORDERED: PETROLATUM 30 GM TUBE TOPICAL PRN (11:45)
[2016-05-07 12:34] LABS: AUTOMATED NEUTROPHIL # 7.9 TH/MM3 (1.8-7.7); BASOPHIL # 0.1 TH/MM3 (0-0.2); BASOPHIL % 0.8 % (0.0-2.0); EOSINOPHIL # 0.4 TH/MM3 (0-0.4); EOSINOPHIL % 4.1 % (0.0-4.0); HEMATOCRIT 25.1 % (35.0-46.0); HEMO FLAGS DIFF FINAL; LYMPH % 13.2 % (9.0-44.0); LYMPHOCYTE # 1.4 TH/MM3 (1.0-4.8); MEAN CELL VOLUME 87.3 FL (80.0-100.0); MEAN CORPUSCULAR HGB CONC 33.2 % (32.0-36.0); MONO % 6.3 % (0.0-8.0); NEUT % 75.6 % (16.0-70.0); PLATELET COUNT 244 TH/MM3 (150-450); RED BLOOD COUNT 2.87 MIL/MM3 (4.00-5.30); RED CELL DISTRIBUTION WIDTH 15.5 % (11.6-17.2); WHITE BLOOD COUNT 10.5 TH/MM3 (4.0-11.0)
[2016-05-07 13:59] LABS: TRANSFERRIN IRON PROFILE 159 MG/DL (200-360)
[2016-05-07 14:02] LABS: FERRITIN 469 NG/ML (8-252)
[2016-05-07] MEDS: VANCOMYCIN INJ 2,000 MG in SODIUM CHLORID 0.9% 500 ML INJ 500 ML IV SCH (14:27)
[2016-05-07 18:00] VITALS: BP 158/62; PULSE 99; RESP 16; TEMP 97.1; O2SAT 97
[2016-05-07] MEDS: LORazepam 0.5 MG TAB PO PRN (20:32)
[2016-05-07] MEDS: ATORVASTATIN 20 MG TAB PO SCH (20:32)
[2016-05-07] MEDS: MELATONIN 5 MG TAB PO SCH (20:32)
[2016-05-07] MEDS: CEPHALEXIN MONOHYDRATE 500 MG CAP PO SCH (20:33)
[2016-05-07] MEDS: DOXYCYCLINE HYCLATE 100 MG CAP PO SCH (20:33)
--- NOTE | 2016-05-07 21:34 | HHI.IDPN ---
Subjective Subjective Remarks delayed entry - pt was seen eralier today cont to do weell afebrile with stable vss no diarrhea, o vomiting WBC down to normal Antibiotics keflex, doxy Past Medical History diabetes morbid obesity Allergies: Coded Allergies: Morphine (Verified Allergy, Intermediate, 04/10/16) Penicillin (Verified Allergy, Intermediate, HIVES, 04/10/16) Objective . Vital Signs Date Time Temp Pulse Resp B/P Pulse Ox O2 Delivery O2 Flow Rate FiO2 05/07/16 18:00 97.1 99 16 158/62 97 05/07/16 08:10 97.5 81 18 138/65 99 05/07/16 07:00 99 Nasal Cannula 2.00 05/07/16 06:02 97.8 75 18 100/49 95 05/07/16 02:00 98.0 60 16 115/60 98 05/06/16 22:59 16 05/06/16 21:44 97 Nasal Cannula 2.00 05/06/16 05/06/16 05/07/16 15:00 23:00 07:00 Intake Total 2356 ml 440 ml Output Total 300 ml 650 ml Balance 2056 ml -210 ml Intake Oral 940 ml 240 ml IV Total 1416 ml 200 ml Output Urine Total 300 ml 650 ml # Voids 1 # Bowel Movements 1 0 . Laboratory Tests Test 05/06/16 05/07/16 05:12 12:22 White Blood Count 12.4 TH/MM3 10.5 TH/MM3 Red Blood Count 2.64 MIL/MM3 2.87 MIL/MM3 Hemoglobin 7.8 GM/DL 8.3 GM/DL Hematocrit 22.9 % 25.1 % Mean Corpuscular Volume 86.7 FL 87.3 FL Mean Corpuscular Hemoglobin 29.4 PG 29.0 PG Mean Corpuscular Hemoglobin 33.9 % 33.2 % Concent Red Cell Distribution Width 15.4 % 15.5 % Platelet Count 194 TH/MM3 244 TH/MM3 Mean Platelet Volume 8.5 FL 8.2 FL Neutrophils (%) (Auto) 77.8 % 75.6 % Lymphocytes (%) (Auto) 14.1 % 13.2 % Monocytes (%) (Auto) 7.2 % 6.3 % Eosinophils (%) (Auto) 0.6 % 4.1 % Basophils (%) (Auto) 0.3 % 0.8 % Neutrophils # (Auto) 9.6 TH/MM3 7.9 TH/MM3 Lymphocytes # (Auto) 1.8 TH/MM3 1.4 TH/MM3 Monocytes # (Auto) 0.9 TH/MM3 0.7 TH/MM3 Eosinophils # (Auto) 0.1 TH/MM3 0.4 TH/MM3 Basophils # (Auto) 0.0 TH/MM3 0.1 TH/MM3 CBC Comment DIFF FINAL DIFF FINAL Differential Comment Laboratory Tests Test 05/06/16 05/07/16 05/07/16 05:12 06:35 12:22 Sodium Level 140 MEQ/L Potassium Level 4.1 MEQ/L Chloride Level 108 MEQ/L Carbon Dioxide Level 23.6 MEQ/L Anion Gap 8 MEQ/L Blood Urea Nitrogen 19 MG/DL Creatinine 0.98 MG/DL 0.58 MG/DL Estimat Glomerular Filtration 56 ML/MIN 102 ML/MIN Rate Random Glucose 265 MG/DL 50 MG/DL Calcium Level 7.8 MG/DL Phosphorus Level 2.0 MG/DL Magnesium Level 2.2 MG/DL Total Bilirubin 0.6 MG/DL Aspartate Amino Transf 52 U/L (AST/SGOT) Alanine Aminotransferase 28 U/L (ALT/SGPT) Alkaline Phosphatase 93 U/L Total Protein 5.9 GM/DL Albumin 2.6 GM/DL Iron Level 29 MCG/DL Total Iron Binding Capacity 223 MCG/DL Percent Iron Saturation 13.0 % Ferritin 469 NG/ML Microbiology Date/Time Procedure Status Source Growth 05/06/16 11:20 Stool Occult Blood (GABRIELLE) - Final Complete Stool Stool HEMOCCULT NEGATIVE Imaging Last Impressions Lower Extremity Ultrasound 05/05/16 0000 Signed Impressions: Service Date/Time: Thursday, May 05, 2016 07:45 - CONCLUSION: Negative for deep venous thrombosis.. Dhiraj Jose MD FACR Chest X-Ray 05/05/16 0000 Signed Impressions: Service Date/Time: Thursday, May 05, 2016 15:34 - CONCLUSION: 1. Moderate pulmonary vascular congestion or pneumonia is noted. Clinical correlation is recommended. 2. Degenerative changes throughout the thoracic spine. Radu Hurley MD Abdomen/Pelvis CT 05/02/16 1615 Signed Impressions: Service Date/Time: April 19:03 - CONCLUSION: 1. Large stool in the rectum. Nonobstructive pattern. No inflammatory changes. 2. Severe atherosclerosis of the abdominal aorta and branch vessels. No aneurysm. 3. Distended urinary bladder at the time of imaging and please correlate clinically. 4. Severe lumbar spine degenerative changes. No acute bony abnormality seen. 5. Fat-containing umbilical hernia. Felipe Mckinnon MD Pelvis CT 05/02/16 0000 Signed Impressions: Service Date/Time: April 19:03 - CONCLUSION: Intact pelvis. Felipe Mckinnon MD Lower Extremity CT 05/02/16 0000 Signed Impressions: Service Date/Time: , May 02, 2016 19:03 - CONCLUSION: Intact right hip. Felipe Mckinnon MD Hip and Pelvis X-Ray 04/15/16 0000 Signed Impressions: Service Date/Time: Friday, April 15, 2016 09:15 - CONCLUSION: Osteopenia, negative for fracture. CT scanning would be more sensitive the patient remains symptomatic Dhiraj Jose MD FACR Physical Exam CONSTITUTIONAL/GENERAL: This is an morbidly obese patient, in no apparent distress. Fully awake and alert Sitting on the edge of the bed NAD SKIN: No jaundice, rashes, or lesions. Skin temperature appropriate. Not diaphoretic. HEAD: Atraumatic. Normocephalic. EYES: Pupils equal and round and reactive. No scleral icterus. Fundi not examined. ENT: N Oral mucosae without visible erythema, exudates, masses, or lesions. Edentulous NECK: Trachea midline. Supple, nontender. . CARDIOVASCULAR: Regular rate and rhythm without murmurs, gallops, or rubs. No JVD. Peripheral pulses symmetric. Pacer in place L chest, no skin changes over the device RESPIRATORY/CHEST: Symmetric, unlabored respirations. Clear to auscultation. Breath sounds equal bilaterally. No wheezes, rales, or rhonchi. GASTROINTESTINAL: Abdomen soft, not tender to palpation , nondistended. No hepato-splenomegaly, or palpable masses. No guarding. Bowel sounds present. GENITOURINARY: Without palpable bladder distension. . MUSCULOSKELETAL: Extremities without clubbing, cyanosis, LLE with resolving edema, + erythema, no more tenderness to palpation No joint tenderness or effusion noted. No calf tenderness. No mottling or clubbing. NEUROLOGICAL: Awake and alert. Normal speech Follows commands. . Moves all extremities. PSYCHIATRIC:calm , cooperative Assessment & Plan Remarks Sepsis -? GAS sepsis from LLE cellulitis New issue: LLE cellulitis - DVT not present on 05/05 US, Rec's: dc azactam, flagyl and vancomycin Keflex + doxycyclin to complete 10-14 days course (7-10 more days) Discussed Condition With Leah Espinal MD May 07, 2016 21:34
[2016-05-07 22:45] VITALS: O2SAT 97
[2016-05-07] MEDS: RESP: ALBUTEROL 2.5 MG/IPRATROPIUM 0.5 MG NEB (PRN) NEB (22:45)
[2016-05-08 05:21] VITALS: BP 149/60; PULSE 102; RESP 16; TEMP 98.6; O2SAT 94
[2016-05-08] MEDS: CEPHALEXIN MONOHYDRATE 500 MG CAP PO SCH ×3 (05:41→20:50)
[2016-05-08] MEDS: BACITRACIN TOP OINT 15 GM TUBE TOP SCH ×3 (05:41→20:47)
[2016-05-08] MEDS: INSULIN ASPART SUPPLEMENTAL SCALE SQ SCH ×4 (06:06→20:48)
[2016-05-08] MEDS ORDERED: VANCOMYCIN 1,500 MG/NS 500 ML IV SCH ×2 (08:00)
[2016-05-08] MEDS: DOXYCYCLINE HYCLATE 100 MG CAP PO SCH ×2 (08:02→20:47)
[2016-05-08] MEDS: QUEtiapine FUMARATE 25 MG TAB PO SCH ×2 (08:02→20:48)
[2016-05-08] MEDS: PANTOPRAZOLE SOD 40 MG DELAYED RELEASE TAB PO SCH (08:02)
[2016-05-08] MEDS: GABAPENTIN 100 MG CAP PO SCH ×3 (08:02→17:55)
[2016-05-08] MEDS: POLYETHYLENE GLYCOL 17 GM PKG PO SCH (08:03)
[2016-05-08] MEDS: NYSTATIN 100,000 U/GM PWD 15 GM BTL TOPICAL SCH ×2 (08:03→20:48)
[2016-05-08] MEDS: ISOSORBIDE MONONITRATE 30 MG TAB PO SCH (09:28)
[2016-05-08] MEDS: DABIGATRAN ETEXILATE 150 MG CAP PO SCH (09:28)
[2016-05-08 10:11] VITALS: O2SAT 96
[2016-05-08] MEDS: ACETAMINOPHEN 325 MG TAB PO PRN (10:28)
[2016-05-08] MEDS: ACETAMINOPHEN/HYDROcodone 325 MG/10 MG TAB PO PRN ×2 (12:01→20:49)
--- NOTE | 2016-05-08 13:40 | HHI.PYPN ---
Subjective Remarks Patient was seen today for reevaluation, she was found watching TV, cooperative , calm, pleasant, wearing regular clothes. She says that she is ready to take a walk in the unit and exercise a little bit, she reports a good mood, denies anxiety, denies distress, denies pain, she reports that she feels in optimal condition, looking forward to find a good place to be discharged and continue her life and her medical recommendation. Patient is oriented times person and place, able to sustain a logical and coherent conversation, no really gross cognitive impairment observed. As per nurse's report she hasn't shown any behavior or mood dysregulation in the last 24 hours. Review of Systems Other No somatic complaints Objective Alert: Yes [place]: Person, Place, Date, Situation Mood: Calm Affect: Euthymic Memory Intact: Immediate, Recent, Remote, Comment Hallucinations: Other (she denies) Delusions: No Delusion Type: Other (none) Suicidal: Ideation (she denies) Homicidal: Ideation (she denies) Insight/Judgement Good Labs Date/Time Procedure Status Source Growth 05/06/16 11:20 Stool Occult Blood (GABRIELLE) - Final Complete Stool Stool HEMOCCULT NEGATIVE Vitals/IOs Vital Signs Date Time Temp Pulse Resp B/P Pulse Ox O2 Delivery O2 Flow Rate FiO2 05/08/16 10:11 96 21 05/08/16 05:21 98.6 102 16 149/60 05/07/16 07:00 Nasal Cannula 2.00 Intake and Output 05/07/16 05/07/16 05/08/16 08:00 16:00 00:00 Intake Total 800 ml 330 ml 840 ml Output Total 650 ml 300 ml Balance 150 ml 330 ml 540 ml Assessment & Plan Problem List: (1) Adjustment disorder with mixed anxiety and depressed mood Assessment & Plan: On psychiatric evaluation today the patient does not present any evidence of subjective or objective symptomatology of depression, anxiety, lashon or perceptual disturbances. Patient is fully oriented 3, no gross cognitive impairment observed. She denies suicidal and homicidal ideation. She denies visual and auditory hallucinations. Patient reports motivation to continue her medical and psychiatric treatment and cooperative with discharge planning. At this point patient is psychiatrically and medically stable, just awaiting for safety discharge plan. ICD Code: F43.23 (2) Lower extremity pain, bilateral ICD Code: M79.604 Assessment & Plan Estimated LOS: days Justification for Cont. Inpt. Coordination of safe discharge planning Request HC Surrog/Guard Advoc?: No Olivier Dumont MD May 08, 2016 13:40
--- NOTE | 2016-05-08 16:03 | HHI.PR ---
Subjective Remarks Follow-up visit sepsis, congestion/ SOB/ Dyspnea, left lower extremity cellulitis. Patient seen today. Resting able to awake to verbal stimuli. Denies chest pain, palpitations, headaches, dizziness. Denies fevers, chills, n/ v/d. Wants to be discharged Objective Vitals Vital Signs Date Time Temp Pulse Resp B/P Pulse Ox O2 Delivery O2 Flow Rate FiO2 05/08/16 10:11 96 21 05/08/16 05:21 98.6 102 16 149/60 94 05/07/16 22:45 97 21 05/07/16 18:00 97.1 99 16 158/62 97 I/O 05/07/16 05/07/16 05/07/16 05/08/16 05/08/16 05/08/16 07:00 15:00 23:00 07:00 15:00 23:00 Intake Total 440 ml 690 ml 360 ml 720 ml 1180 ml Output Total 650 ml 300 ml Balance -210 ml 690 ml 60 ml 720 ml 1180 ml Intake Oral 240 ml 690 ml 360 ml 720 ml 1180 ml IV Total 200 ml Output Urine Total 650 ml 300 ml # Voids 1 2 5 5 # Bowel Movements 0 1 Result Diagram: 05/07/16 1222 05/07/16 0635 Objective Remarks GENERAL: This is a well-nourished, well-developed patient, in no apparent distress. SKIN: Bilateral lower extremity erythema greatly improved HEENT: Normocephalic. Pupils equal round and reactive. Nose without bleeding. Airway patent. NECK: Trachea midline. No JVD. Supple. CARDIOVASCULAR: Regular rate and rhythm without murmurs, gallops, or rubs. RESPIRATORY: Bilateral upper lobe with rhonchi. Fair to good air exchange. GASTROINTESTINAL: Abdomen soft, non-tender, nondistended. Bowel Sounds hypoactive x4. : Arevalo cath draining clear yellow urine. MUSCULOSKELETAL: Extremities without clubbing, cyanosis, trace bilateral lower extremity edema. NEUROLOGICAL: Awake and alert. No focal neuro deficit. AYERS. Normal speech. A/P Problem List: (1) Lower extremity pain, bilateral ICD Code: M79.604 Status: Acute (2) Adjustment disorder with mixed anxiety and depressed mood ICD Code: F43.23 Status: Acute (3) DM (diabetes mellitus) ICD Code: E11.9 Status: Acute Assessment and Plan Pleasant 75-year-old female patient currently inpatient psychiatric center we have been consulted for assistance with hypertension and diabetes mellitus. Patient is on Pradaxa reports some kind of heart rhythm problem in the past requiring pacemaker placement question atrial fibrillation. Encephalopathy - probably secondary to sepsis. Improved. More responsive, answers questions and follows commands. SIRS, Sepsis - UA negative, CXR unremarkable - BC no growth in one day - ID Following. CT of the abdomen and pelvis recommended and was done. - 05/02/15 CT abdomen/pelvis large stool in the rectum. Nonobstructive pattern. No inflammatory changes. Severe atherosclerosis of the abdominal aorta and branch vessels. No aneurysm. Distended urinary bladder at the time of imaging please correlate clinically. Severe lumbar spine degenerative disease. No acute bony abnormality seen. Fat-containing umbilical hernia. Patient was ordered fleets enema, MOM, bowel regimen. 05/03/15 -Lactate 2.7 --> 1.8 improved. Leukocytosis 30.1 --> 28.2 --> 12.6 -- > 12.4 --> 10.5 Left lower extremity cellulitis - has received IV antibiotics, Flagyl, Vanco per ID recommendation now on PO Keflex and doxycycline - Repeat Doppler studies negative for DVTs Acute Kidney injury - improved - Avoid nephrotoxins - metformin on hold Fluid overload, Congestion - Pt. previously hypotensive, 1L fluid bolus given, BP improved but developed congestion.- DC IV fluids - CXR 1. Moderate pulmonary vascular congestion or pneumonia is noted. Clinical correlation is recommended. 2. Degenerative changes throughout the thoracic spine. - Lasix 40mg given x1 now on room air - good air movement HTN -hold lisinopril to 20mg BID and atenolol, cont clonidine as needed, due to hypotensive episode. Monitor vital signs per protocol Diabetes mellitus. - Hyperglycemic episodes 05/07/2016 46 3 AM long-acting insulin was held - restart Levemir 10 units Q HS - Monitor accuchecks Anemia - improving - Hemoccult negative - iron panel reviewed, iron level 29, TIBC 223, % saturation 13.0 with ferritin 469- will start ferrous sulfate- ferritin elevation may be secondary to acute illness patient with recent sepsis Question atrial fibrillation history of cardiac arrhythmia requiring pacemaker on Pradaxa at home Will continue Pradaxa Constipation Continue bowel regimen Chronic bilateral lower extremity pain continue [place] 10 mg every 4 hours as needed for pain as well as Left knee exam consistent with advanced osteoarthritis recommend outpatient orthopedic surgery consult after discharge - Neurontin 100 mg 3 times a day - 05/02/[address] showed intact right hip, pelvic CT shows intact pelvis. DVT prophylaxis Pradaxa Patient appears medically stable for DC- recommend completing abx coarse and follow up with PCP Written by Roberta Medina, acting as scribe for Dr. Gonzalez on 05/08/16 at 11:43. Attending Statement The documentation accurately reflects the work performed [id number] by me on at 11:43. Roberta Medina May 08, 2016 16:03 Alverto Lira MD May 26, 2016 10:15
[2016-05-08 18:25] VITALS: O2SAT 96
[2016-05-08 19:17] VITALS: BP 184/79; PULSE 106; RESP 18; TEMP 98; O2SAT 96
[2016-05-08 20:16] VITALS: BP 163/70; PULSE 97; RESP 16
[2016-05-08] MEDS: ATORVASTATIN 20 MG TAB PO SCH (20:49)
[2016-05-08] MEDS: MELATONIN 5 MG TAB PO SCH (20:50)
[2016-05-08] MEDS: INSULIN DETEMIR 100 UNITS/ML VIAL SQ SCH (20:50)
[2016-05-08] MEDS ORDERED: INSULIN DETEMIR 100 UNITS/ML VIAL SQ SCH (21:00)
[2016-05-09 05:46] VITALS: BP 177/81; PULSE 99; RESP 17; TEMP 97.7; O2SAT 96
[2016-05-09] MEDS: CEPHALEXIN MONOHYDRATE 500 MG CAP PO SCH ×3 (06:18→21:02)
[2016-05-09] MEDS: INSULIN ASPART SUPPLEMENTAL SCALE SQ SCH ×4 (06:18→21:03)
[2016-05-09] MEDS: BACITRACIN TOP OINT 15 GM TUBE TOP SCH ×3 (06:18→21:04)
[2016-05-09] MEDS: ACETAMINOPHEN/HYDROcodone 325 MG/10 MG TAB PO PRN ×3 (06:24→21:54)
[2016-05-09] MEDS: cloNIDine HCL 0.1 MG TAB PO PRN (06:24)
[2016-05-09 07:16] LABS: AUTOMATED NEUTROPHIL # 6.1 TH/MM3 (1.8-7.7); BASOPHIL # 0.1 TH/MM3 (0-0.2); BASOPHIL % 0.8 % (0.0-2.0); EOSINOPHIL # 0.6 TH/MM3 (0-0.4); EOSINOPHIL % 6.8 % (0.0-4.0); HEMATOCRIT 26.7 % (35.0-46.0); LYMPH % 19.4 % (9.0-44.0); LYMPHOCYTE # 1.8 TH/MM3 (1.0-4.8); MEAN CELL VOLUME 86.7 FL (80.0-100.0); MEAN CORPUSCULAR HGB CONC 33.5 % (32.0-36.0); MONO % 7.8 % (0.0-8.0); NEUT % 65.2 % (16.0-70.0); PLATELET COUNT 465 TH/MM3 (150-450); RED BLOOD COUNT 3.07 MIL/MM3 (4.00-5.30); RED CELL DISTRIBUTION WIDTH 15.4 % (11.6-17.2); WHITE BLOOD COUNT 9.3 TH/MM3 (4.0-11.0)
[2016-05-09 07:24] LABS: HEMO FLAGS AUTO DIFF
[2016-05-09 07:42] LABS: ALKALINE PHOSPHATASE 100 U/L (45-117); ALT (GPT) 27 U/L (10-53); ANION GAP 8 MEQ/L (5-15); AST (GOT) 20 U/L (15-37); BICARBONATE 25.2 MEQ/L (21.0-32.0); BLOOD UREA NITROGEN 6 MG/DL (7-18); CHLORIDE 109 MEQ/L (98-107); GLOMERULAR FILTRATION RATE 100 ML/MIN (>89); POTASSIUM 3.9 MEQ/L (3.5-5.1); SODIUM (NA) 142 MEQ/L (136-145); TOTAL BILIRUBIN ADULT 0.6 MG/DL (0.2-1.0)
[2016-05-09] MEDS: PANTOPRAZOLE SOD 40 MG DELAYED RELEASE TAB PO SCH (07:42)
[2016-05-09 08:41] LABS: BANDS 20 % (0-6); BASOPHILS 1 % (0-2); EOSINOPHILS 6 % (0-4); METAMYELOCYTES 1 % (0-1); NEUTROPHIL # MANUAL DIFF 6.8 TH/MM3 (1.8-7.7); POLYS (SEG NEUTROPHILS) 52 % (16-70); WBC DIFF SAMPLE 100
[2016-05-09 08:42] LABS: OVALOCYTES 1+ (NORMAL); PLATELET ESTIMATE SMEAR HIGH (NORMAL); PLATELET MORPHOLOGY NORMAL (NORMAL)
[2016-05-09 08:43] LABS: SCAN/DIFF FINAL DIFF MANUAL
[2016-05-09] MEDS: DABIGATRAN ETEXILATE 150 MG CAP PO SCH (09:29)
[2016-05-09] MEDS: QUEtiapine FUMARATE 25 MG TAB PO SCH ×2 (09:29→21:03)
[2016-05-09] MEDS: GABAPENTIN 100 MG CAP PO SCH ×3 (09:29→17:06)
[2016-05-09] MEDS: metFORMIN HCL 500 MG TAB PO SCH ×2 (09:29→17:07)
[2016-05-09] MEDS: POLYETHYLENE GLYCOL 17 GM PKG PO SCH (09:29)
[2016-05-09] MEDS: DOXYCYCLINE HYCLATE 100 MG CAP PO SCH ×2 (09:29→21:02)
[2016-05-09] MEDS: LISINOPRIL 20 MG TAB PO SCH ×2 (09:30→21:02)
[2016-05-09] MEDS: ISOSORBIDE MONONITRATE 30 MG TAB PO SCH (09:30)
[2016-05-09] MEDS: NYSTATIN 100,000 U/GM PWD 15 GM BTL TOPICAL SCH ×2 (09:33→21:04)
--- NOTE | 2016-05-09 11:15 | HHI.PYPN ---
Subjective Remarks Patient today seen for evaluation, she continues improvement in her mood and behavior, also her medical condition, she is now medically clear by hospitalist , she describes her mood as "very good", denies depressive symptoms, she says that she is motivated to be discharged to a new [facility], she really liked the people came yesterday to evaluate her, she denies suicidal and homicidal ideation. She denies visual and auditory hallucinations. No paranoia, delusions, combativeness, agitation, aggressive behavior, psychosis, delirium, gross cognitive impairment observed during this evaluation. Patient is fully oriented 3. As per nurses patient has been calm in the unit, medication compliant, with a very good sense of humor, very cooperative. Review of Systems Constitutional: DENIES: Diaphoretic episodes, Fatigue, Fever, Weight gain, Weight loss, Chills, Dizziness, Change in appetite, Night Sweats Endocrine: DENIES: Abnorml menstrual pattern, Heat/cold intolerance, Polydipsia , Polyuria, Polyphagia Eyes: DENIES: Blurred vision, Diplopia, Eye inflammation, Eye pain, Vision loss , Photosensitivity, Double Vision Ears, nose, mouth, throat: DENIES: Tinnitus, Hearing loss, Vertigo, Nasal discharge, Oral lesions, Throat pain, Hoarseness, Ear Pain, Running Nose, Epistaxis, Sinus Pain, Toothache, Odynophagia Respiratory: DENIES: Apneas, Cough, Snoring, Wheezing, Hemoptysis, Sputum production, Shortness of breath Cardiovascular: DENIES: Chest pain, Palpitations, Syncope, Dyspnea on Exertion , PND, Lower Extremity Edema, Orthopnea, Claudication Gastrointestinal: DENIES: Abdominal pain, Black stools, Bloody stools, Constipation, Diarrhea, Nausea, Vomiting, Difficulty Swallowing, Anorexia Musculoskeletal: DENIES: Joint pain, Muscle aches, Stiffness, Joint Swelling, Back pain, Neck pain Integumentary: DENIES: Abnormal pigmentation, Pruritus, Rash, Nail changes, Breast masses, Breast skin changes, Nipple discharge Hematologic/lymphatic: DENIES: Bruising, Lymphadenopathy Immunologic/allergic: DENIES: Eczema, Urticaria Neurologic: DENIES: Abnormal gait, Headache, Localized weakness, Paresthesias, Seizures, Speech Problems, Tremor, Poor Balance Psychiatric: DENIES: Anxiety, Confusion, Mood changes, Depression, Hallucinations, Agitation, Suicidal Ideation, Homicidal Ideation, Delusions Objective Alert: Yes [place]: Person, Place, Date, Situation Mood: Calm Affect: Euthymic Memory Intact: Immediate, Recent, Remote, Comment Hallucinations: Other (she denies) Delusions: No Delusion Type: Other (none) Suicidal: Ideation (she denies) Homicidal: Ideation (she denies) Insight/Judgement Good Labs Test 05/09/16 06:45 White Blood Count 9.3 TH/MM3 Red Blood Count 3.07 MIL/MM3 Hemoglobin 8.9 GM/DL Hematocrit 26.7 % Mean Corpuscular Volume 86.7 FL Mean Corpuscular Hemoglobin 29.0 PG Mean Corpuscular Hemoglobin 33.5 % Concent Red Cell Distribution Width 15.4 % Platelet Count 465 TH/MM3 Mean Platelet Volume 7.7 FL Neutrophils (%) (Auto) 65.2 % Lymphocytes (%) (Auto) 19.4 % Monocytes (%) (Auto) 7.8 % Eosinophils (%) (Auto) 6.8 % Basophils (%) (Auto) 0.8 % Neutrophils # (Auto) 6.1 TH/MM3 Lymphocytes # (Auto) 1.8 TH/MM3 Monocytes # (Auto) 0.7 TH/MM3 Eosinophils # (Auto) 0.6 TH/MM3 Basophils # (Auto) 0.1 TH/MM3 CBC Comment AUTO DIFF Differential Total Cells 100 Counted Neutrophils % (Manual) 52 % Band Neutrophils % 20 % Lymphocytes % 14 % Monocytes % 6 % Eosinophils % 6 % Basophils % 1 % Neutrophils # (Manual) 6.8 TH/MM3 Metamyelocytes 1 % Differential Comment FINAL DIFF MANUAL Atypical Lymphocytes % Platelet Estimate HIGH Platelet Morphology Comment NORMAL Ovalocytes 1+ Sodium Level 142 MEQ/L Potassium Level 3.9 MEQ/L Chloride Level 109 MEQ/L Carbon Dioxide Level 25.2 MEQ/L Anion Gap 8 MEQ/L Blood Urea Nitrogen 6 MG/DL Creatinine 0.59 MG/DL Estimat Glomerular Filtration 100 ML/MIN Rate Random Glucose 151 MG/DL Calcium Level 8.8 MG/DL Total Bilirubin 0.6 MG/DL Aspartate Amino Transf 20 U/L (AST/SGOT) Alanine Aminotransferase 27 U/L (ALT/SGPT) Alkaline Phosphatase 100 U/L Total Protein 7.1 GM/DL Albumin 3.1 GM/DL Date/Time Procedure Status Source Growth 05/06/16 11:20 Stool Occult Blood (GABRIELLE) - Final Complete Stool Stool HEMOCCULT NEGATIVE Vitals/IOs Vital Signs Date Time Temp Pulse Resp B/P Pulse Ox O2 Delivery O2 Flow Rate FiO2 05/09/16 05:46 97.7 99 17 177/81 96 05/08/16 18:25 21 05/07/16 07:00 Nasal Cannula 2.00 Intake and Output 05/08/16 05/08/16 05/09/16 08:00 16:00 00:00 Intake Total 240 ml 1180 ml 360 ml Balance 240 ml 1180 ml 360 ml Assessment & Plan Problem List: (1) Adjustment disorder with mixed anxiety and depressed mood Assessment & Plan: On reevaluation today the patient does not show any significant symptomatology of depression, anxiety, delirium, psychosis. She denies suicidal and homicidal ideation. Shows motivation and agreement with discharge plan. She is medication compliant, now medically clear. At this moment patient is just waiting to complete the process of coordination of a discharge plan. ICD Code: F43.23 (2) Lower extremity pain, bilateral ICD Code: M79.604 Assessment & Plan Estimated LOS: days Justification for Cont. Inpt. Patient waiting for the coordination of for safe discharge plan, she most probably will be discharged tomorrow to [facility] Request HC Surrog/Guard Advoc?: No Olivier Dumont MD May 09, 2016 11:15
[2016-05-09 12:03] VITALS: O2SAT 95
--- NOTE | 2016-05-09 17:13 | HHI.PR ---
Subjective Remarks no major overnight events denies cp/sob denies leg pain denies diarrhea denies rash denies nausea/vomiting Objective Vitals Vital Signs Date Time Temp Pulse Resp B/P Pulse Ox O2 Delivery O2 Flow Rate FiO2 05/09/16 12:03 95 21 05/09/16 05:46 97.7 99 17 177/81 96 05/08/16 21:49 18 05/08/16 20:16 97 16 163/70 05/08/16 19:17 98.0 106 18 184/79 96 05/08/16 18:25 96 21 I/O 05/08/16 05/08/16 05/08/16 05/09/16 05/09/16 05/09/16 07:00 15:00 23:00 07:00 15:00 23:00 Intake Total 720 ml 1180 ml 360 ml 120 ml 1480 ml Balance 720 ml 1180 ml 360 ml 120 ml 1480 ml Intake Oral 720 ml 1180 ml 360 ml 120 ml 1480 ml # Voids 5 5 4 3 # Bowel Movements 1 0 0 Result Diagram: 05/09/16 0645 05/09/16 0645 Imaging Last Impressions Lower Extremity Ultrasound 05/05/16 0000 Signed Impressions: Service Date/Time: Thursday, May 05, 2016 07:45 - CONCLUSION: Negative for deep venous thrombosis.. Dhiraj Jose MD FACR Chest X-Ray 05/05/16 0000 Signed Impressions: Service Date/Time: Thursday, May 05, 2016 15:34 - CONCLUSION: 1. Moderate pulmonary vascular congestion or pneumonia is noted. Clinical correlation is recommended. 2. Degenerative changes throughout the thoracic spine. Radu Hurley MD Abdomen/Pelvis CT 05/02/16 1615 Signed Impressions: Service Date/Time: April 19:03 - CONCLUSION: 1. Large stool in the rectum. Nonobstructive pattern. No inflammatory changes. 2. Severe atherosclerosis of the abdominal aorta and branch vessels. No aneurysm. 3. Distended urinary bladder at the time of imaging and please correlate clinically. 4. Severe lumbar spine degenerative changes. No acute bony abnormality seen. 5. Fat-containing umbilical hernia. Felipe Mckinnon MD Pelvis CT 05/02/16 0000 Signed Impressions: Service Date/Time: April 19:03 - CONCLUSION: Intact pelvis. Felipe Mckinnon MD Lower Extremity CT 05/02/16 0000 Signed Impressions: Service Date/Time: April 19:03 - CONCLUSION: Intact right hip. Felipe Mckinnon MD Hip and Pelvis X-Ray 04/15/16 0000 Signed Impressions: Service Date/Time: Friday, April 15, 2016 09:15 - CONCLUSION: Osteopenia, negative for fracture. CT scanning would be more sensitive the patient remains symptomatic Dhiraj Jose MD FACR Objective Remarks GENERAL: This is a well-nourished, well-developed patient, in no apparent distress. SKIN: Bilateral lower extremity erythema greatly improved HEENT: Normocephalic. Pupils equal round and reactive. Nose without bleeding. Airway patent. NECK: Trachea midline. No JVD. Supple. CARDIOVASCULAR: Regular rate and rhythm without murmurs, gallops, or rubs. RESPIRATORY: Bilateral upper lobe with rhonchi. Fair to good air exchange. GASTROINTESTINAL: Abdomen soft, non-tender, nondistended. Bowel Sounds hypoactive x4. : Arevalo cath draining clear yellow urine. MUSCULOSKELETAL: Extremities without clubbing, cyanosis, trace bilateral lower extremity edema. NEUROLOGICAL: Awake and alert. No focal neuro deficit. AYERS. Normal speech. Medications and IVs Current Medications Medications (Trade) Dose Ordered Sig/Meghan Route Start Time Stop Time Status Last Admin (Ativan) 0.5 mg Q12H PRN PO 04/11/16 09:15 05/07/16 20:32 (Ativan Inj) 0.5 mg Q12H PRN IM 04/11/16 09:15 04/29/16 00:30 (Tylenol) 650 mg Q4H PRN PO 04/11/16 09:15 05/08/16 10:28 (Mag-Al Plus Susp Liq) 30 ml Q6H PRN PO 04/11/16 09:15 05/05/16 09:13 (Tenormin) 25 mg DAILY PO 04/11/16 15:45 Hold 05/03/16 10:35 (Lipitor) 20 mg HS PO 04/11/16 21:00 05/08/16 20:49 (Pradaxa) 150 mg DAILY PO 04/12/16 09:00 05/09/16 09:29 (Lasix) 20 mg DAILY PO 04/12/16 09:00 Hold 05/03/16 10:35 (Imdur) 30 mg DAILY PO 04/12/16 09:00 05/09/16 09:30 (Catapres) 0.1 mg Q6H PRN PO 04/12/16 16:00 05/09/16 06:24 (Prinivil) 20 mg BID PO 04/13/16 21:00 05/09/16 09:30 ([place] 10-325 Mg) 1 tab Q4H PRN PO 04/15/16 17:15 05/09/16 14:59 (Miralax) 17 gm DAILY PO 04/18/16 09:00 05/09/16 09:29 (Baciguent Oint) 1 applic Q8HR TOP 04/19/16 15:00 05/09/16 13:06 (Mycostatin Powder) 1 applic Q12HR TOPICAL 04/24/16 10:30 05/09/16 09:33 (Melatonin) 5 mg HS PO 04/27/16 21:00 05/08/16 20:50 (Glucophage) 500 mg BIDPC PO 04/30/16 18:00 05/09/16 17:07 (Milk Of Magnesia Liq) 30 ml BID PRN PO 05/03/16 09:30 (Fleets Enema (Adult)) 133 ml UNSCH PRN TX 05/03/16 09:30 (Zofran Inj) 4 mg Q6H PRN IV PUSH 05/03/16 10:00 05/03/16 15:31 (Protonix) 40 mg DAILYAC PO 05/04/16 08:00 05/09/16 07:42 (Neurontin) 100 mg TID PO 05/03/16 13:00 05/09/16 17:06 (D50w (Vial) Inj) 25 ml UNSCH PRN IV PUSH 05/07/16 11:00 (Glucagon Inj) 1 mg UNSCH PRN OTHER 05/07/16 11:00 (SEROquel) 50 mg BID PO 05/07/16 21:00 05/09/16 09:29 (Keflex) 500 mg Q8HR PO 05/07/16 22:00 05/17/16 21:59 05/09/16 13:06 (Vibramycin) 100 mg BID PO 05/07/16 21:00 05/21/16 20:59 05/09/16 09:29 (Levemir Inj) 10 units HS SQ 05/08/16 21:00 05/08/16 20:50 A/P Problem List: (1) Lower extremity pain, bilateral ICD Code: M79.604 Status: Acute (2) Adjustment disorder with mixed anxiety and depressed mood ICD Code: F43.23 Status: Acute (3) DM (diabetes mellitus) ICD Code: E11.9 Status: Acute Assessment and Plan Pleasant 75-year-old female patient currently inpatient psychiatric center we have been consulted for assistance with hypertension and diabetes mellitus. Patient is on Pradaxa reports some kind of heart rhythm problem in the past requiring pacemaker placement question atrial fibrillation. Encephalopathy - probably secondary to sepsis. Resolved. SIRS, Sepsis - UA negative, CXR unremarkable - BC no growth in one day - ID Following. CT of the abdomen and pelvis recommended and was done. - 05/02/15 CT abdomen/pelvis large stool in the rectum. Nonobstructive pattern. No inflammatory changes. Severe atherosclerosis of the abdominal aorta and branch vessels. No aneurysm. Distended urinary bladder at the time of imaging please correlate clinically. Severe lumbar spine degenerative disease. No acute bony abnormality seen. Fat-containing umbilical hernia. Patient was ordered fleets enema, MOM, bowel regimen. 05/03/15 -Lactate 2.7 --> 1.8 improved. Leukocytosis 30.1 --> 28.2 --> 12.6 -- > 12.4 --> 10.5 Left lower extremity cellulitis - has received IV antibiotics, Flagyl, Vanco per ID recommendation now on PO Keflex and doxycycline - Repeat Doppler studies negative for DVTs Acute Kidney injury - improved - Avoid nephrotoxins - metformin on hold Fluid overload, Congestion - Pt. previously hypotensive, 1L fluid bolus given, BP improved but developed congestion.- DC IV fluids - CXR 1. Moderate pulmonary vascular congestion or pneumonia is noted. Clinical correlation is recommended. 2. Degenerative changes throughout the thoracic spine. - Lasix 40mg given x1 now on room air - good air movement HTN -hold lisinopril to 20mg BID and atenolol, cont clonidine as needed, due to hypotensive episode. Monitor vital signs per protocol 05/09/16 Resume Lisinopril. Diabetes mellitus. - Hyperglycemic episodes 05/07/2016 46 3 AM long-acting insulin was held - Continue Levemir. Blood sugars still uncontrolled. Increase Levemir dose to 15 units daily. Continue SSI with insulin Novolog Anemia - improving - Hemoccult negative - iron panel reviewed, iron level 29, TIBC 223, % saturation 13.0 with ferritin 469- will start ferrous sulfate- ferritin elevation may be secondary to acute illness patient with recent sepsis Question atrial fibrillation history of cardiac arrhythmia requiring pacemaker on Pradaxa at home Will continue Pradaxa Constipation Continue bowel regimen Chronic bilateral lower extremity pain continue [place] 10 mg every 4 hours as needed for pain as well as Left knee exam consistent with advanced osteoarthritis recommend outpatient orthopedic surgery consult after discharge - Neurontin 100 mg 3 times a day - 05/02/[address] showed intact right hip, pelvic CT shows intact pelvis. DVT prophylaxis Pradaxa Patient appears medically stable for DC- recommend completing abx coarse and follow up with PCP Alverto Lira MD May 09, 2016 17:13
[2016-05-09 17:59] VITALS: BP 173/73; PULSE 99; RESP 18; TEMP 97.7
[2016-05-09] MEDS ORDERED: PHARMACY ORDERED LAB XX ONE (19:45)
[2016-05-09] MEDS: MELATONIN 5 MG TAB PO SCH (21:02)
[2016-05-09] MEDS: ATORVASTATIN 20 MG TAB PO SCH (21:02)
[2016-05-09] MEDS: INSULIN DETEMIR 100 UNITS/ML VIAL SQ SCH (21:04)
[2016-05-10 06:26] VITALS: BP 130/58; PULSE 72; RESP 15; TEMP 97.7; O2SAT 96
[2016-05-10] MEDS: BACITRACIN TOP OINT 15 GM TUBE TOP SCH ×3 (06:40→21:20)
[2016-05-10] MEDS: CEPHALEXIN MONOHYDRATE 500 MG CAP PO SCH ×3 (06:40→21:19)
[2016-05-10] MEDS: INSULIN ASPART SUPPLEMENTAL SCALE SQ SCH ×4 (06:55→21:19)
[2016-05-10] MEDS: PANTOPRAZOLE SOD 40 MG DELAYED RELEASE TAB PO SCH (07:43)
[2016-05-10] MEDS: ISOSORBIDE MONONITRATE 30 MG TAB PO SCH (08:34)
[2016-05-10] MEDS: DABIGATRAN ETEXILATE 150 MG CAP PO SCH (08:34)
[2016-05-10] MEDS: DOXYCYCLINE HYCLATE 100 MG CAP PO SCH ×2 (08:34→21:18)
[2016-05-10] MEDS: GABAPENTIN 100 MG CAP PO SCH ×3 (08:34→17:35)
[2016-05-10] MEDS: QUEtiapine FUMARATE 25 MG TAB PO SCH ×2 (08:34→21:18)
[2016-05-10] MEDS: metFORMIN HCL 500 MG TAB PO SCH ×2 (08:34→17:35)
[2016-05-10] MEDS: POLYETHYLENE GLYCOL 17 GM PKG PO SCH (08:34)
[2016-05-10] MEDS: LISINOPRIL 20 MG TAB PO SCH ×2 (08:35→21:17)
[2016-05-10] MEDS: NYSTATIN 100,000 U/GM PWD 15 GM BTL TOPICAL SCH ×2 (08:38→21:19)
--- NOTE | 2016-05-10 09:25 | HHI.PYPN ---
Subjective Remarks On psychiatric evaluation today patient is calm, cooperative, pleasant, future her motivation and her excitement to be discharged to a new home, she reports good mood, good appetite, good level of concentration and energy, she denies depressive symptoms, she denies anxiety, denies psychotic symptoms, she is oriented 3, no gross cognitive impairment observed. On longitudinal observation, nurses describe that he "as a happy camper", no behavioral or mood dysregulation observer reported. Review of Systems Constitutional: DENIES: Diaphoretic episodes, Fatigue, Fever, Weight gain, Weight loss, Chills, Dizziness, Change in appetite, Night Sweats Endocrine: DENIES: Abnorml menstrual pattern, Heat/cold intolerance, Polydipsia , Polyuria, Polyphagia Eyes: DENIES: Blurred vision, Diplopia, Eye inflammation, Eye pain, Vision loss , Photosensitivity, Double Vision Ears, nose, mouth, throat: DENIES: Tinnitus, Hearing loss, Vertigo, Nasal discharge, Oral lesions, Throat pain, Hoarseness, Ear Pain, Running Nose, Epistaxis, Sinus Pain, Toothache, Odynophagia Respiratory: DENIES: Apneas, Cough, Snoring, Wheezing, Hemoptysis, Sputum production, Shortness of breath Cardiovascular: DENIES: Chest pain, Palpitations, Syncope, Dyspnea on Exertion , PND, Lower Extremity Edema, Orthopnea, Claudication Gastrointestinal: DENIES: Abdominal pain, Black stools, Bloody stools, Constipation, Diarrhea, Nausea, Vomiting, Difficulty Swallowing, Anorexia Musculoskeletal: DENIES: Joint pain, Muscle aches, Stiffness, Joint Swelling, Back pain, Neck pain Integumentary: DENIES: Abnormal pigmentation, Pruritus, Rash, Nail changes, Breast masses, Breast skin changes, Nipple discharge Hematologic/lymphatic: DENIES: Bruising, Lymphadenopathy Immunologic/allergic: DENIES: Eczema, Urticaria Neurologic: DENIES: Abnormal gait, Headache, Localized weakness, Paresthesias, Seizures, Speech Problems, Tremor, Poor Balance Psychiatric: DENIES: Anxiety, Confusion, Mood changes, Depression, Hallucinations, Agitation, Suicidal Ideation, Homicidal Ideation, Delusions Objective Alert: Yes [place]: Person, Place, Date, Situation Mood: Calm Affect: Euthymic Memory Intact: Immediate, Recent, Remote, Comment Hallucinations: Other (she denies) Delusions: No Delusion Type: Other (none) Suicidal: Ideation (she denies) Homicidal: Ideation (she denies) Insight/Judgement Good Labs Date/Time Procedure Status Source Growth 05/06/16 11:20 Stool Occult Blood (GABRIELLE) - Final Complete Stool Stool HEMOCCULT NEGATIVE Vitals/IOs Vital Signs Date Time Temp Pulse Resp B/P Pulse Ox O2 Delivery O2 Flow Rate FiO2 05/10/16 06:26 97.7 72 15 130/58 96 05/09/16 12:03 21 05/07/16 07:00 Nasal Cannula 2.00 Intake and Output 05/09/16 05/09/16 05/10/16 08:00 16:00 00:00 Intake Total 120 ml 1480 ml 600 ml Balance 120 ml 1480 ml 600 ml Assessment & Plan Problem List: (1) Adjustment disorder with mixed anxiety and depressed mood Assessment & Plan: Patient patient is psychiatrically stable at this moment, not immediate psychiatric intervention needed, no adjustment in current medications, support, motivation and psycho education provided, just pending approval from [facility], hopefully today could be discharged. ICD Code: F43.23 (2) Lower extremity pain, bilateral ICD Code: M79.604 Assessment & Plan Estimated LOS: days Justification for Cont. Inpt. Patient just waiting for approval of [facility] Request HC Surrog/Guard Advoc?: No Olivier Dumont MD May 10, 2016 09:24
[2016-05-10] MEDS: ATENOLOL 25 MG TAB PO SCH (10:05)
--- NOTE | 2016-05-10 14:01 | HHI.PR ---
Subjective Remarks Follow-up visit sepsis-resolved, congestion/ SOB/ Dyspnea, left lower extremity cellulitis. Patient seen today. Resting able to awake to verbal stimuli. Denies chest pain, palpitations, headaches, dizziness. Denies fevers, chills, n/ v/d. Wants to be discharged Objective Vitals Vital Signs Date Time Temp Pulse Resp B/P Pulse Ox O2 Delivery O2 Flow Rate FiO2 05/10/16 06:26 97.7 72 15 130/58 96 05/09/16 17:59 97.7 99 18 173/73 I/O 05/09/16 05/09/16 05/09/16 05/10/16 05/10/16 05/10/16 07:00 15:00 23:00 07:00 15:00 23:00 Intake Total 120 ml 2080 ml 120 ml 480 ml Balance 120 ml 2080 ml 120 ml 480 ml Intake Oral 120 ml 2080 ml 120 ml 480 ml # Voids 3 1 3 # Bowel Movements 0 Result Diagram: 05/09/1645 05/09/1645 Objective Remarks GENERAL: This is a well-nourished, well-developed patient, in no apparent distress. SKIN: Bilateral lower extremity erythema greatly improved HEENT: Normocephalic. Pupils equal round and reactive. Nose without bleeding. Airway patent. NECK: Trachea midline. No JVD. Supple. CARDIOVASCULAR: Regular rate and rhythm without murmurs, gallops, or rubs. RESPIRATORY: Bilateral upper lobe with rhonchi. Fair to good air exchange. GASTROINTESTINAL: Abdomen soft, non-tender, nondistended. Bowel Sounds hypoactive x4. : Arevalo cath draining clear yellow urine. MUSCULOSKELETAL: Extremities without clubbing, cyanosis, trace bilateral lower extremity edema. NEUROLOGICAL: Awake and alert. No focal neuro deficit. AYERS. Normal speech. A/P Problem List: (1) Lower extremity pain, bilateral ICD Code: M79.604 Status: Acute (2) Adjustment disorder with mixed anxiety and depressed mood ICD Code: F43.23 Status: Acute (3) DM (diabetes mellitus) ICD Code: E11.9 Status: Acute Assessment and Plan Pleasant 75-year-old female patient currently inpatient psychiatric center we have been consulted for assistance with hypertension and diabetes mellitus. Patient is on Pradaxa reports some kind of heart rhythm problem in the past requiring pacemaker placement question atrial fibrillation. Encephalopathy - probably secondary to sepsis. Improved. More responsive, answers questions and follows commands. SIRS, Sepsis - UA negative, CXR unremarkable - BC no growth in one day - ID Following. CT of the abdomen and pelvis recommended and was done. - 05/02/15 CT abdomen/pelvis large stool in the rectum. Nonobstructive pattern. No inflammatory changes. Severe atherosclerosis of the abdominal aorta and branch vessels. No aneurysm. Distended urinary bladder at the time of imaging please correlate clinically. Severe lumbar spine degenerative disease. No acute bony abnormality seen. Fat-containing umbilical hernia. Patient was ordered fleets enema, MOM, bowel regimen. 05/03/15 -Lactate 2.7 --> 1.8 improved. Leukocytosis 30.1 --> 28.2 --> 12.6 -- > 12.4 --> 10.5 Left lower extremity cellulitis - has received IV antibiotics, Flagyl, Vanco per ID recommendation now on PO Keflex and doxycycline - Repeat Doppler studies negative for DVTs Acute Kidney injury - improved - Avoid nephrotoxins - metformin on hold Fluid overload, Congestion - Pt. previously hypotensive, 1L fluid bolus given, BP improved but developed congestion.- DC IV fluids - CXR 1. Moderate pulmonary vascular congestion or pneumonia is noted. Clinical correlation is recommended. 2. Degenerative changes throughout the thoracic spine. - Lasix 40mg given x1 now on room air - good air movement HTN -hold lisinopril to 20mg BID and atenolol, cont clonidine as needed, due to hypotensive episode. Monitor vital signs per protocol Diabetes mellitus. - Hyperglycemic episodes 05/07/2016 46 3 AM long-acting insulin was held - restart Levemir 10 units Q HS - Monitor accuchecks Anemia - improving - Hemoccult negative - iron panel reviewed, iron level 29, TIBC 223, % saturation 13.0 with ferritin 469- will start ferrous sulfate- ferritin elevation may be secondary to acute illness patient with recent sepsis Question atrial fibrillation history of cardiac arrhythmia requiring pacemaker on Pradaxa at home Will continue Pradaxa Constipation Continue bowel regimen Chronic bilateral lower extremity pain continue [place] 10 mg every 4 hours as needed for pain as well as Left knee exam consistent with advanced osteoarthritis recommend outpatient orthopedic surgery consult after discharge - Neurontin 100 mg 3 times a day - 05/02/[address] showed intact right hip, pelvic CT shows intact pelvis. DVT prophylaxis Pradaxa Patient appears medically stable for DC- recommend completing abx coarse and follow up with PCP Written by Roberta Medina, acting as scribe for Dr. Gonzalez on 05/10/16 at 11:43. Attending Statement The documentation accurately reflects the work performed [id number] by me on 05/10/16 at 11:43. Roberta Medina May 10, 2016 14:01 Alverto Lira MD May 29, 2016 21:36
[2016-05-10 14:10] VITALS: O2SAT 98
[2016-05-10 19:01] VITALS: O2SAT 98
[2016-05-10 20:34] VITALS: BP 116/52; PULSE 78; RESP 18; TEMP 98.7; O2SAT 94
[2016-05-10] MEDS: ATORVASTATIN 20 MG TAB PO SCH (21:16)
[2016-05-10] MEDS: MELATONIN 5 MG TAB PO SCH (21:17)
[2016-05-10] MEDS: INSULIN DETEMIR 100 UNITS/ML VIAL SQ SCH (21:19)
[2016-05-10] MEDS: ACETAMINOPHEN/HYDROcodone 325 MG/10 MG TAB PO PRN (21:31)
[2016-05-11] MEDS: INSULIN ASPART SUPPLEMENTAL SCALE SQ SCH ×4 (05:46→21:33)
[2016-05-11] MEDS: BACITRACIN TOP OINT 15 GM TUBE TOP SCH ×3 (06:08→21:32)
[2016-05-11] MEDS: CEPHALEXIN MONOHYDRATE 500 MG CAP PO SCH ×3 (06:08→21:35)
[2016-05-11 06:24] VITALS: BP 147/65; PULSE 69; RESP 16; TEMP 96.9; O2SAT 97
[2016-05-11] MEDS: PANTOPRAZOLE SOD 40 MG DELAYED RELEASE TAB PO SCH (08:00)
[2016-05-11] MEDS: ISOSORBIDE MONONITRATE 30 MG TAB PO SCH (08:42)
[2016-05-11] MEDS: LISINOPRIL 20 MG TAB PO SCH ×2 (08:42→21:36)
[2016-05-11] MEDS: GABAPENTIN 100 MG CAP PO SCH ×3 (08:43→18:00)
[2016-05-11] MEDS: POLYETHYLENE GLYCOL 17 GM PKG PO SCH (08:43)
[2016-05-11] MEDS: DABIGATRAN ETEXILATE 150 MG CAP PO SCH (08:43)
[2016-05-11] MEDS: metFORMIN HCL 500 MG TAB PO SCH ×2 (08:43→18:00)
[2016-05-11] MEDS: DOXYCYCLINE HYCLATE 100 MG CAP PO SCH ×2 (08:43→21:35)
[2016-05-11] MEDS: QUEtiapine FUMARATE 25 MG TAB PO SCH ×2 (08:43→21:35)
[2016-05-11] MEDS: ATENOLOL 25 MG TAB PO SCH (08:43)
[2016-05-11] MEDS: NYSTATIN 100,000 U/GM PWD 15 GM BTL TOPICAL SCH ×2 (08:46→21:32)
--- NOTE | 2016-05-11 13:05 | HHI.PYPN ---
Subjective Remarks Patient seen and examined. Chart reviewed. Case discussed with nursing staff. No behavioral issues noted. On my examination today, the patient is in good spirits. She says "everything is the same." She is hopeful for discharge beginning of next week. She denies any suicidal or homicidal ideation. Denies any side effects from medications. Review of Systems Other No physical complaints today Objective Alert: Yes [place]: Person, Place, Date Mood: Calm Affect: Euthymic Memory Intact: Comment (seems intact on clinical exam) Hallucinations: Other (no AVH) Delusions: No Delusion Type: Other (no delusions) Suicidal: Ideation (denies SI) Homicidal: Ideation (denies HI) Insight/Judgement Fair Remarks No abnormal motor movements noted Labs Labs reviewed. No new labs. CBC and BMP from the 12th noted. Vitals/IOs Vital Signs Date Time Temp Pulse Resp B/P Pulse Ox O2 Delivery O2 Flow Rate FiO2 05/11/16 06:24 96.9 69 16 147/65 97 05/10/16 19:01 21 05/07/16 07:00 Nasal Cannula 2.00 Intake and Output 05/10/16 05/10/16 05/11/16 08:00 16:00 00:00 Intake Total 120 ml 960 ml 240 ml Balance 120 ml 960 ml 240 ml Assessment & Plan Problem List: (1) Adjustment disorder with mixed anxiety and depressed mood ICD Code: F43.23 Assessment & Plan Continue current psychotropics as ordered. Continue other medications and care as ordered. Hospitalist acquisition consultant input noted and appreciated. Justification for Cont. Inpt. Apparently awaiting placement; discharge planning Discharge Planning Per Dr. Pitt Request HC Surrog/Guard Advoc?: No Jian Henderson MD May 11, 2016 13:05
[2016-05-11] MEDS: ACETAMINOPHEN/HYDROcodone 325 MG/10 MG TAB PO PRN ×2 (13:33→21:35)
[2016-05-11 19:00] VITALS: BP 152/69; PULSE 77; RESP 16; TEMP 97.8; O2SAT 98
[2016-05-11] MEDS: INSULIN DETEMIR 100 UNITS/ML VIAL SQ SCH (21:33)
[2016-05-11] MEDS: MELATONIN 5 MG TAB PO SCH (21:36)
[2016-05-11] MEDS: ATORVASTATIN 20 MG TAB PO SCH (21:36)
[2016-05-12] VITALS: BP_SYST 101; BP_SYST 82; BP_SYST 83; BP_SYST 86; BP_SYST 96; BP_SYST 99; BP_DIAS 37; BP_DIAS 39; BP_DIAS 40; BP_DIAS 41; BP_DIAS 44; BP_DIAS 45; PULSE 69; RESP 16; TEMP 98.6; O2SAT 95
[2016-05-12] MEDS ORDERED: SODIUM CHLORID 0.9% 500 ML INJ 500 ML IV ONE ×2 (00:30→00:45)
--- NOTE | 2016-05-12 00:39 | HHI.FPPN ---
Addendum to progress note ADDENDUM Additional information Camille called because patient found hypotensive 80s/40s and was confused. She appeared different from her baseline. Resident came to evaluate patient. She appeared tired, but when asked how shes feeling, she reported feeling tired. She was placed in trandelengerg and her BP increased to 120s/80. Patient was alert to person and place. She is complaining of some abdominal pain and some left arm pain where her BP cuff is. Nurse reports no recent medications given. Blood sugar 150s. She urinated about 15x overnight. She is on doxy and keflex for cellulitis. The patients primary is at bedside. Objective General: tired appearing but arousable, obese female, nad Resp: no increase work of breathing, no accessory muscle use Abd: soft, NT, ND Neuro: able to move all 4 extremities, able to lift both LE against gravity A/P- symptomatic hypotension. IV access- give 500 cc NS bolus Medications reviewed Blood sugars stable UA (even though on abx) Michelle Juarez MD R3 May 12, 2016 00:39
[2016-05-12 01:39] LABS: AUTOMATED NEUTROPHIL # 7.8 TH/MM3 (1.8-7.7); BASOPHIL # 0.1 TH/MM3 (0-0.2); BASOPHIL % 0.6 % (0.0-2.0); EOSINOPHIL # 0.2 TH/MM3 (0-0.4); EOSINOPHIL % 2.1 % (0.0-4.0); HEMATOCRIT 21.5 % (35.0-46.0); HEMO FLAGS DIFF FINAL; LYMPH % 19.9 % (9.0-44.0); LYMPHOCYTE # 2.2 TH/MM3 (1.0-4.8); MEAN CELL VOLUME 88.3 FL (80.0-100.0); MEAN CORPUSCULAR HEMOGLOBIN 29.3 PG (27.0-34.0); MEAN CORPUSCULAR HGB CONC 33.2 % (32.0-36.0); MONO % 7.4 % (0.0-8.0); PLATELET COUNT 416 TH/MM3 (150-450); RED BLOOD COUNT 2.43 MIL/MM3 (4.00-5.30); RED CELL DISTRIBUTION WIDTH 15.4 % (11.6-17.2); WHITE BLOOD COUNT 11.1 TH/MM3 (4.0-11.0)
--- NOTE | 2016-05-12 01:59 | RADRPT ---
EXAM DATE/TIME: 05/12/2016 00:50 [facility] COMPARISON: No previous studies available for comparison. INDICATIONS : Abdominal pain. MEDICAL HISTORY : Hypertension. Diabetes mellitus type II. SURGICAL HISTORY : Cholecystectomy. ENCOUNTER: Initial ACUITY: 1 day PAIN SCORE: 8/10 LOCATION: Left lower quadrant FINDINGS: The bowel gas pattern appears normal. No free air is identified. No organomegaly is evident. There is multilevel degenerative change throughout the spine. There are surgical clips in the right upper samina drant compatible with prior cholecystectomy. CONCLUSION: 1. No evidence of obstruction. Jian Smith MD on May 12, 2016 at 1:57 Board Certified Radiologist. This report was verified electronically.
--- NOTE | 2016-05-12 02:44 | HHI.PR ---
Addendum to Inpatient Note Addendum Reason: Additional Documentation Additional Information Ms. Laboy is seen during a [facility]. She is a 75-year-old female who is currently admitted to the inpatient psychiatric unit with a history of encephalopathy, sepsis, left lower extremity cellulitis, diabetes mellitus, and previous fluid overload following 1 L fluid bolus given for hypotension. The patient had vital signs taken around midnight and blood pressure was found to be 86/40. This prompted the [facility]IC[facility]. The patient was also lethargic at the time. I ordered a normal saline bolus of 500 cc - because of prior history of fluid volume overload with one liter bolus, I wanted cautious rehydration. She is on some psychiatric medications that might cause hypotension and she received those at 9:00 PM and she is also on fluid restriction. She was also complaining of left lower quadrant abdominal pain which is elicited with palpation. Her abdomen is otherwise soft and nondistended with normal bowel sounds. Nursing reports that she has been having some loose stools and as she has been placed on antibiotics for cellulitis, we will check for C. difficile toxin. KUB was negative. Urine was sent for urinalysis and C& S if indicated. Twelve-lead EKG was done and showed no ischemic changes. I am still awaiting a CBC, BMP, and lactic acid level. I have called the inpatient laboratory and results should be available very soon. Prior to leaving the floor, the patient had stabilized and blood pressures had improved to the 110's/50's. She was no longer lethargic and was alert and fairly oriented though she was unable to state the name of the hospital and she is unable to name of the new president though she says he is a rich kailee who is going to ruin our country by making the rich richer and the poor poorer. She is able to state her name and birthday and the year. Nursing aware to contact us for any further problems. Doris Lopez May 12, 2016 02:44
[2016-05-12] MEDS: LORazepam 0.5 MG TAB PO PRN (03:23)
[2016-05-12 06:14] LABS: BLOOD, URINE NEG (NEG); COMMENT (UR) CULT NOT INDICATED; CULTURE IF INDICATED CULT NOT INDICATED; GLUCOSE,URINE NEG (NEG); KETONE, URINE NEG (NEG); MUCUS URINE FEW /lpf (OCC); NITRITE,URINE NEG (NEG); PH, URINE 6.5 (5.0-8.5); SQUAMOUS EPITHELIAL CELL URINE <1 /hpf (0-5); URINE COLOR LIGHT-YELLOW (YELLW/STRAW)
[2016-05-12] MEDS: INSULIN ASPART SUPPLEMENTAL SCALE SQ SCH (06:21)
[2016-05-12] MEDS: BACITRACIN TOP OINT 15 GM TUBE TOP SCH (06:22)
[2016-05-12] MEDS: CEPHALEXIN MONOHYDRATE 500 MG CAP PO SCH (06:22)
[2016-05-12 06:25] VITALS: BP 143/65; PULSE 71; RESP 16; TEMP 97.8; O2SAT 98
[2016-05-12 07:36] LABS: HEMATOCRIT 22.5 % (35.0-46.0); REVIEW FLAG FINAL
--- NOTE | 2016-05-12 16:11 | EKG ---
Date Performed: 05/12/2016 Time Performed: 01:14:36 PTAGE: 75 years EKG: SUPRAVENTRICULAR RHYTHM, probably sinus but cannot define P waves Loss of R waves in the an terior precordium Possible anterior injury since prior tracing LOW QRS VOLTAGE Clinical correlation i s recommended ABNORMAL ECG NO PREVIOUS TRACING DOCTOR: Chris Crooks Interpretating Date/Time 05/12/2016 16:10:32
[2016-05-13] MEDS ORDERED: QUET1TAB7 PO (09:37)
[2016-05-13] MEDS ORDERED: DOXY100C PO (09:37)
[2016-05-13] MEDS ORDERED: CEPH500C PO (09:37)
[2016-05-13] MEDS ORDERED: LORA-392 PO (09:37)
[2016-05-13] MEDS ORDERED: HYDR-3516 PO (09:37)
[2016-05-13] MEDS ORDERED: LIPI20TA PO (15:16)
--- NOTE | 2016-06-25 10:29 | HHI.DS ---
Psychiatry Discharge Summary Inpatient Psychiatric care?: Yes Advance Directive: No Reason Not Provided: Due to Patient Condition Mental Health AdvanceDirective: No Health Care Proxy: No Admission Admission Date Apr 11, 2016 at 09:10 Admission Diagnosis: (1) Adjustment disorder with mixed anxiety and depressed mood ICD Code: F43.23 Brief History The patient is a 75-year-old woman, domiciled with her brother in [place], , without psychiatric history of anxiety and depression, 1 previous psychiatric hospitalization in [place], no previous suicide attempts, medical history of diabetes and hypertension, who presents to emergency room for psychiatric evaluation. As per ER notes: "Patient reports that her niece helps to care for her as well as her brother. Reports that her niece has been having a hard time taking care of both her brother as well as herself and suggested going to a retirement today. As per patient, she made a suicidal comment to her brother today as she does not want to go to a retirement. Pt reports that she made the suicidal comment but didn't mean it and reports that she would never hurt herself. Carter act initiated by [facility]". Chart was reviewed, no collateral information available at this moment , case was discussed with nurse in charge and ER staff, case was seen in the A Pod. On evaluation patient was found agitated, mood dysregulated, persistently crying, poorly cooperative, she is claiming to be discharged and sent back home. She says that she wants to go back home with her brother. She does not want to be in the hospital, she says that she doesn't want to be sent to a retirement. Patient states repetitively that if is no discharge is going to kill herself and if she is sent to a retirement she is going to hang herself. Patient reported that she is extremely depressed, she doesn't have any desire to live. Patient is oriented 3, but cognitive tests is limited due to lack of cooperation. As per conversation with nursing charge, the brother of the patient had a stroke and is hospitalized here in [place], and apparently doesn' t have a good prognosis. Her Niece brought the patient to the hospital because she is is spending most of her time taking care of her father and cannot take care of her. When she explained to the patient that she had to go to a retirement the patient told her that she will kill herself if she does that. Tobacco Use In Past 30 Days: No Tobacco Past 30 Days Alcohol Use: Never Hospital Course Patient was admitted in the psychiatric [facility] due to depressive symptoms, mood instability, hopelessness, irritable affect, she was immediately started in antidepressants, psychotherapy and group activities. She responded very quickly to medications and counseling. During her stay in the hospital patient was usually calm, cooperative, no aggressive behavior or agitation observed or reported. She was visited and seen by hospitalist to continue medical follow- up. At discharge patient denies depression, denies anxiety, denies perceptual disturbances, denies suicidal ideation. Results Blood Pressure 143 / 65 Reviewed Reviewed Summary of Procedures None Imaging Last Impressions Abdomen X-Ray 05/12/16 0000 Signed Impressions: Service Date/Time: Thursday, May 12, 2016 00:50 - CONCLUSION: 1. No evidence of obstruction. Jian Smith MD Lower Extremity Ultrasound 05/05/16 0000 Signed Impressions: Service Date/Time: Thursday, May 05, 2016 07:45 - CONCLUSION: Negative for deep venous thrombosis.. Dhiraj Jose MD FACR Chest X-Ray 05/05/16 0000 Signed Impressions: Service Date/Time: Thursday, May 05, 2016 15:34 - CONCLUSION: 1. Moderate pulmonary vascular congestion or pneumonia is noted. Clinical correlation is recommended. 2. Degenerative changes throughout the thoracic spine. Radu Hurley MD Abdomen/Pelvis CT 05/02/16 1615 Signed Impressions: Service Date/Time: April 19:03 - CONCLUSION: 1. Large stool in the rectum. Nonobstructive pattern. No inflammatory changes. 2. Severe atherosclerosis of the abdominal aorta and branch vessels. No aneurysm. 3. Distended urinary bladder at the time of imaging and please correlate clinically. 4. Severe lumbar spine degenerative changes. No acute bony abnormality seen. 5. Fat-containing umbilical hernia. Felipe Mckinnon MD Pelvis CT 05/02/16 0000 Signed Impressions: Service Date/Time: , May 02, 2016 19:03 - CONCLUSION: Intact pelvis. Felipe Mckinnon MD Lower Extremity CT 05/02/16 0000 Signed Impressions: Service Date/Time: April 19:03 - CONCLUSION: Intact right hip. Felipe Mckinnon MD Hip and Pelvis X-Ray 04/15/16 0000 Signed Impressions: Service Date/Time: Friday, April 15, 2016 09:15 - CONCLUSION: Osteopenia, negative for fracture. CT scanning would be more sensitive the patient remains symptomatic Dhiraj Jose MD FACR Pending results at discharge: No Medications # of Antipsychotic meds at D/C: 0 Approp Antipsych med options 1 - Minimum of three failed multiple trials of monotherapy. 2 - Documented plan to taper to monotherapy due to previous use of multiple meds OR cross-taper in progress at D/C. 3 - Documentation of augmentation of Clozapine. 4 - Justification other than those listed in allowable values 1-3, document here : Discharge Discharge Date: May 12, 2016 Discharge Diagnosis: (1) Adjustment disorder with mixed anxiety and depressed mood ICD Code: F43.23 Mental Status Exam at Disch woman, calm and cooperative, mood stable, affect is erythemic, thought processes logical coherent and relevant, thought content devoid of suicidal ideation and homicidal ideation, visual and auditory hallucinations. Insight, judgment, impulse controlled are good, memory is intact. Pt Condition on Discharge: Stable Discharge Disposition: Disch to Another Hospital Discharge Instructions Diet Instructions: As Tolerated, No Restrictions Activities you can perform: Regular-No Restrictions Scheduled Appointment: George Roach Discharge Time > 30 minutes Discharge/Advance Care Plan Health Problems: (1) Adjustment disorder with mixed anxiety and depressed mood Goals to promote your health * To prevent worsening of your condition and complications * To maintain your health at the optimal level Directions to meet your goals Take your medications as prescribed Follow your dietary instruction Follow activity as directed Keep your appointments as scheduled Take your immunizations and boosters as scheduled If your symptoms worsen call your PCP, if no PCP go to Urgent Care Center or Emergency Room For 18/11 questions related to your inpatient stay or results of tests pending at discharge, please contact Dr. Olivier Dumont at Smoking is Dangerous to Your Health. Avoid second hand smoking Olivier Dumont MD Jun 25, 2016 10:29
== END 2016-05-12 06:40 | disposition short-term general hospital (02) | DRG 882 ==
LOC: NEPE 17:15 → NEDA 04-11 09:10 → H250 04-11 10:00 → H4EA 05-02 15:05
PROVIDERS: ADMIT Psychiatry & Neurology Psychiatry; ATTEND Psychiatry & Neurology Psychiatry
PROC: 0T9B70Z Drainage of Bladder with Drainage Device, Via Natural or Artificial Opening (ICD-10-PCS; principal; 2016-05-02)
DX: F43.23 Adjustment disorder with mixed anxiety and depressed mood (principal); A41.9 Sepsis, unspecified organism; G93.40 Encephalopathy, unspecified; N17.9 Acute kidney failure, unspecified; I95.9 Hypotension, unspecified; E87.2 Acidosis; E11.621 Type 2 diabetes mellitus with foot ulcer; L03.116 Cellulitis of left lower limb; Z68.41 Body mass index [BMI] 40.0-44.9, adult; R45.851 Suicidal ideations; J98.11 Atelectasis; E11.65 Type 2 diabetes mellitus with hyperglycemia; L97.519 Non-pressure chronic ulcer of other part of right foot with unspecified severity; L97.529 Non-pressure chronic ulcer of other part of left foot with unspecified severity; I10 Essential (primary) hypertension; K21.9 Gastro-esophageal reflux disease without esophagitis; I49.9 Cardiac arrhythmia, unspecified; E66.01 Morbid (severe) obesity due to excess calories; D50.9 Iron deficiency anemia, unspecified; I70.0 Atherosclerosis of aorta; M51.36 Other intervertebral disc degeneration, lumbar region; R32 Unspecified urinary incontinence; M79.604 Pain in right leg; M79.605 Pain in left leg; M17.12 Unilateral primary osteoarthritis, left knee; K42.9 Umbilical hernia without obstruction or gangrene; G89.29 Other chronic pain; R33.9 Retention of urine, unspecified; K59.00 Constipation, unspecified; E87.70 Fluid overload, unspecified; R10.32 Left lower quadrant pain; Z63.9 Problem related to primary support group, unspecified; Z79.4 Long term (current) use of insulin; Z79.01 Long term (current) use of anticoagulants; Z95.0 Presence of cardiac pacemaker; Z87.891 Personal history of nicotine dependence; Z86.718 Personal history of other venous thrombosis and embolism
CPT/HCPCS: 71010; 72192; 73502; 73700; 74000; 74176; 80048; 80053; 80076; 80202; 80301; 80320; 81001; 82272; 82565; 82728; 82947; 82948; 83540; 83550; 83605; 83690; 83735; 84100; 85007; 85014; 85018; 85025; 85027; 86850; 86900; 86901; 87040; 93005; 93970; 94640; 94664; 96374; G0479; J1200; J1630; J1815; J1885; J1940; J2060; J2405; J2543; J3370; J7030; J7040

== ENCOUNTER 2016-05-12 09:35 | Observation (INO) | payer OTHER ==
[2016-05-12 08:00] VITALS: BP 157/67; PULSE 75; PULSE 78; RESP 18; TEMP 98.2; O2SAT 97
[~2016-05-12 09:35] MED LIST: ATEN25TA PO; CLIN1CAP5 PO; CLON0.5T PO; ESCI10TA PO; FENT25DI T-DERMAL; FURO20TA PO; GABA600T PO; HUMA100I3 SQ; HYDR-3516 PO; HYDR-3649; ISOS30TA3 PO; LEVEMIR SQ; LIPI20TA PO; LISI-515 PO; NEUR300C PO; PANT40TA3 PO; PRAD150C PO; SERT-129 PO; TRAZ50TA12 PO
[2016-05-12] MEDS ORDERED: NALOXONE HCL 0.4 MG/ML AMP IV PRN (10:15)
[2016-05-12] MEDS ORDERED: SODIUM CHLORIDE 0.9% FLUSH 5 ML FLUSH FLUSH PRN (10:15)
[2016-05-12] MEDS ORDERED: ONDANSETRON HCL 4 MG/2 ML VIAL IVP PRN (10:15)
[2016-05-12] MEDS ORDERED: GLUCAGON 1 MG/ML VIAL OTHER PRN (11:45)
[2016-05-12] MEDS ORDERED: ENALAPRILAT 1.25 MG/ML VIAL IV PRN (11:45)
[2016-05-12] MEDS ORDERED: DEXTROSE 50% IN WATER 50 ML VIAL(D50) IV PUSH PRN (11:45)
--- NOTE | 2016-05-12 11:45 | HHI.HP ---
[facility] Service [place] [facility] Primary Care Physician Unknown Admission Diagnosis Diagnoses: (1) Hypotension (2) Adjustment disorder with mixed anxiety and depressed mood (3) DM (diabetes mellitus) Chief Complaint: hypotension Travel History International Travel<30 Days: No Contact w/Intl Traveler <30 Da: No History of Present Illness 75-year-old female with a medical history significant for hypertension, type 2 diabetes, GERD, prior pacemaker placement for cardiac arrhythmia. The patient was admitted to the medical psychiatric unit under current treatment for adjustment disorder, sepsis and lower extremity cellulitis. The patient's vital signs were taken the middle of night and she was found to have a blood pressure of 86/40. [facility] was called. At the time the patient was noted to be somewhat lethargic. She did receive Seroquel and lisinopril around 9 PM. The patient is also noted to be on a fluid restriction. She is seen currently in the emergency room. She has no complaint except for feeling cold. She wants her GERD medication before she can eat. Discussed with RN. At times she gets agitated. The patient denies any chest pain, heart palpitations, or shortness of breath. Review of Systems Constitutional: DENIES: Fever, Chills Endocrine: DENIES: Polyuria, Polyphagia Eyes: DENIES: Blurred vision Ears, nose, mouth, throat: DENIES: Oral lesions Respiratory: DENIES: Cough, Shortness of breath Cardiovascular: DENIES: Chest pain, Palpitations Gastrointestinal: DENIES: Nausea Musculoskeletal: DENIES: Joint pain Integumentary: DENIES: Rash Neurologic: DENIES: Headache Psychiatric: COMPLAINS OF: Agitation Past Family Social History Past Medical History Hypertension Diabetes mellitus insulin-dependent GERD Prior cardiac arrhythmia requiring pacemaker placement Past Surgical History Cholecystectomy Pacemaker placement Reported Medications Reported Meds & Active Scripts Active Pantoprazole (Pantoprazole Sodium) 40 Mg Tab 40 Mg PO DAILY Isosorbide Mononitrate ER (Isosorbide Mononitrate) 30 Mg Daja 30 Mg PO DAILY Levemir Inj (Insulin Detemir) 1,000 unit/ 10 ML Vial 30 Units SQ HS Neurontin (Gabapentin) 300 Mg Cap 600 Mg PO 2 PO HS Furosemide 20 Mg Tab 20 Mg PO DAILY Atenolol 25 Mg Tab 25 Mg PO DAILY Reported Fentanyl Patch 72 HR (Fentanyl) 25 Mcg/Hr Patch 25 Mcg T-DERMAL Q72H Humalog Kwikpen Pen Inj (Insulin Lispro (Human) Inj) 300 Unit/3 Ml Pen 10 Units SQ DIRECTED Clindamycin (Clindamycin HCl) 150 Mg Cap 150 Mg PO TID Hydrocodone-Acetaminophen 5-325 mg Tab 1 Tab PO Q12HR PRN Escitalopram (Escitalopram Oxalate) 10 Mg Tab 10 Mg PO DAILY Trazodone (Trazodone HCl) 50 Mg Tab 50 Mg PO HS Clonazepam 0.5 Mg Tab 0.5 Mg PO TID Atorvastatin (Atorvastatin Calcium) 20 Mg Tab 20 Mg PO HS Lisinopril 20 Mg Tab 20 Mg PO DAILY Pradaxa (Dabigatran) 150 Mg Cap 150 Mg PO DAILY Sertraline (Sertraline HCl) 100 Mg Tab 100 Mg PO DAILY Allergies: Coded Allergies: Morphine (Verified Allergy, Intermediate, 04/10/16) Penicillin (Verified Allergy, Intermediate, HIVES, 04/10/16) Family History Patient could not tell me. Social History No to alcohol or tobacco. Physical Exam Physical Exam GENERAL: This is a well-nourished, well-developed patient, in no apparent distress. SKIN: Resolving bilateral lower extremity edema HEAD: Atraumatic. Normocephalic. No temporal or scalp tenderness. EYES: Pupils equal round and reactive. Extraocular motions intact. No scleral icterus. No injection or drainage. ENT: Nose without bleeding, purulent drainage or septal hematoma. Throat without erythema, tonsillar hypertrophy or exudate. Uvula midline. Airway patent. NECK: Trachea midline. No JVD or lymphadenopathy. Supple, nontender, no meningeal signs. CARDIOVASCULAR: Regular rate and rhythm without murmurs, gallops, or rubs. RESPIRATORY: Clear to auscultation. Breath sounds equal bilaterally. No wheezes , rales, or rhonchi. GASTROINTESTINAL: Abdomen soft, non-tender, nondistended. No hepato-splenomegaly , or palpable masses. No guarding. MUSCULOSKELETAL: Extremities without clubbing, cyanosis, or edema. No joint tenderness, effusion, or edema noted. No calf tenderness. Negative Homans sign bilaterally. NEUROLOGICAL: Awake and alert. Cranial nerves II through XII intact. Motor and sensory grossly within normal limits. Five out of 5 muscle strength in all muscle groups. Normal speech. Assessment and Plan Assessment and Plan 75-year-old female admitted for observation from the med/psych unit. The patient was found to have an episode of hypotension. She was being treated for adjustment disorder, lower extremity cellulitis. Hypotension: Likely secondary to medication and fluid restriction. Patient received Seroquel and lisinopril around 9 PM. She was given 500 cc of IV fluid. Her blood pressure since come up and is currently elevated. - Reduce lisinopril to 20 mg daily instead of twice a day. - Continue atenolol and Lasix. - Decrease Seroquel to 25 mg twice a day. Defer further adjustment to psychiatry. Adjustment disorder: Consult psychiatry. Left lower extremity cellulitis -resolving. Continue PO Keflex and doxycycline HTN -see above. Continue to monitor closely Diabetes mellitus. - Levemir 10 units Q HS - Monitor accuchecks Question atrial fibrillation history of cardiac arrhythmia requiring pacemaker on Pradaxa at home Will continue Pradaxa DVT prophylaxis Digna Street MD May 12, 2016 11:45
[2016-05-12 12:00] VITALS: BP 198/77; PULSE 76; RESP 20; TEMP 96.1; O2SAT 94
[2016-05-12] MEDS: PANTOPRAZOLE SOD 40 MG DELAYED RELEASE TAB PO SCH (12:57)
[2016-05-12] MEDS: LISINOPRIL 20 MG TAB PO SCH (12:57)
[2016-05-12] MEDS: ESCITALOPRAM OXALATE 10 MG TAB PO SCH (12:58)
[2016-05-12] MEDS: ATENOLOL 25 MG TAB PO SCH (12:58)
[2016-05-12] MEDS: FUROSEMIDE 20 MG TAB PO SCH (12:58)
[2016-05-12] MEDS: CEPHALEXIN MONOHYDRATE 500 MG CAP PO SCH ×2 (13:00→22:02)
[2016-05-12 16:00] VITALS: BP 180/72; PULSE 76; RESP 20; TEMP 95.6; O2SAT 98
[2016-05-12] MEDS: INSULIN ASPART SUPPLEMENTAL SCALE SQ SCH ×2 (16:00→22:03)
[2016-05-12] MEDS: ACETAMINOPHEN/HYDROcodone 325 MG/5 MG TAB PO PRN (18:16)
[2016-05-12 20:00] VITALS: PULSE 70
[2016-05-12 20:43] VITALS: BP 141/78; PULSE 87; RESP 21; TEMP 98.7; O2SAT 97
[2016-05-12] MEDS ORDERED: INSULIN DETEMIR 100 UNITS/ML VIAL SQ SCH (21:00)
[2016-05-12] MEDS ORDERED: ATORVASTATIN 20 MG TAB PO SCH (21:00)
[2016-05-12] MEDS: SODIUM CHLORIDE 0.9% FLUSH 5 ML FLUSH FLUSH SCH (22:02)
[2016-05-12] MEDS: LORazepam 0.5 MG TAB PO PRN (22:02)
[2016-05-12] MEDS: DOXYCYCLINE HYCLATE 100 MG CAP PO SCH (22:02)
[2016-05-12] MEDS: QUEtiapine FUMARATE 25 MG TAB PO SCH (22:02)
[2016-05-13] MEDS: ACETAMINOPHEN/HYDROcodone 325 MG/5 MG TAB PO PRN ×3 (00:16→14:10)
[2016-05-13] MEDS: BACITRACIN TOP OINT 15 GM TUBE TOP SCH ×3 (00:16→14:09)
[2016-05-13] MEDS: NYSTATIN 100,000 U/GM PWD 15 GM BTL TOPICAL SCH ×2 (00:16→08:53)
[2016-05-13 00:40] VITALS: BP 131/68; PULSE 74; RESP 21; TEMP 98.7; O2SAT 97
[2016-05-13 04:49] VITALS: BP 147/87; PULSE 54; RESP 16; TEMP 98.8; O2SAT 97
[2016-05-13] MEDS: CEPHALEXIN MONOHYDRATE 500 MG CAP PO SCH ×2 (05:36→14:08)
[2016-05-13] MEDS: INSULIN ASPART SUPPLEMENTAL SCALE SQ SCH ×2 (06:03→12:02)
[2016-05-13 06:28] LABS: AUTOMATED NEUTROPHIL # 7.8 TH/MM3 (1.8-7.7); BASOPHIL # 0.1 TH/MM3 (0-0.2); BASOPHIL % 0.7 % (0.0-2.0); EOSINOPHIL # 0.2 TH/MM3 (0-0.4); EOSINOPHIL % 2.1 % (0.0-4.0); HEMATOCRIT 27.7 % (35.0-46.0); HEMO FLAGS DIFF FINAL; LYMPHOCYTE # 1.7 TH/MM3 (1.0-4.8); MEAN CELL VOLUME 86.7 FL (80.0-100.0); MEAN CORPUSCULAR HGB CONC 33.5 % (32.0-36.0); MONO % 7.5 % (0.0-8.0); NEUT % 73.7 % (16.0-70.0); PLATELET COUNT 507 TH/MM3 (150-450); RED BLOOD COUNT 3.19 MIL/MM3 (4.00-5.30); RED CELL DISTRIBUTION WIDTH 15.1 % (11.6-17.2); WHITE BLOOD COUNT 10.5 TH/MM3 (4.0-11.0)
[2016-05-13 06:42] LABS: BICARBONATE 27.4 MEQ/L (21.0-32.0); POTASSIUM 3.8 MEQ/L (3.5-5.1)
[2016-05-13] MEDS: ESCITALOPRAM OXALATE 10 MG TAB PO SCH (08:50)
[2016-05-13] MEDS: FUROSEMIDE 20 MG TAB PO SCH (08:50)
[2016-05-13] MEDS: PANTOPRAZOLE SOD 40 MG DELAYED RELEASE TAB PO SCH (08:51)
[2016-05-13] MEDS: LISINOPRIL 20 MG TAB PO SCH (08:51)
[2016-05-13] MEDS: ATENOLOL 25 MG TAB PO SCH (08:52)
[2016-05-13] MEDS: QUEtiapine FUMARATE 25 MG TAB PO SCH (08:52)
[2016-05-13] MEDS: DOXYCYCLINE HYCLATE 100 MG CAP PO SCH (08:53)
[2016-05-13] MEDS: SODIUM CHLORIDE 0.9% FLUSH 5 ML FLUSH FLUSH SCH (08:54)
[2016-05-13] MEDS ORDERED: DABIGATRAN ETEXILATE 150 MG CAP PO SCH (09:00)
[2016-05-13] MEDS ORDERED: ISOSORBIDE MONONITRATE 30 MG TAB PO SCH (09:00)
[2016-05-13 09:29] VITALS: PULSE 75
--- NOTE | 2016-05-13 09:32 | HHI.PR ---
Subjective Remarks Patient reports that she is feeling great. She is anxious to go to the rehabilitation center. Discussed with RN. Objective Vitals Vital Signs Date Time Temp Pulse Resp B/P Pulse Ox O2 Delivery O2 Flow Rate FiO2 05/13/16 04:49 98.8 54 16 147/87 97 05/13/16 00:40 98.7 74 21 131/68 97 05/12/16 20:43 98.7 87 21 141/78 97 05/12/16 20:00 70 05/12/16 16:00 95.6 76 20 180/72 98 05/12/16 12:00 96.1 76 20 198/77 94 I/O 05/12/16 05/12/16 05/12/16 05/13/16 05/13/16 05/13/16 06:59 14:59 22:59 06:59 14:59 22:59 Intake Total 722 ml 480 ml Balance 722 ml 480 ml Intake Oral 720 ml 480 ml IV Total 2 ml # Voids 10 2 # Bowel Movements 1 Result Diagram: 05/13/16 0543 05/13/16 0543 Objective Remarks GENERAL: This is a well-nourished, well-developed patient, in no apparent distress. SKIN: Resolving bilateral lower extremity erythema CARDIOVASCULAR: Regular rate and rhythm without murmurs, gallops, or rubs. RESPIRATORY: Clear to auscultation. Breath sounds equal bilaterally. No wheezes , rales, or rhonchi. NEUROLOGICAL: Awake and alert. Normal speech. MOOD: Labile. A/P Problem List: (1) Hypotension ICD Code: I95.9 Status: Acute (2) Adjustment disorder with mixed anxiety and depressed mood ICD Code: F43.23 Status: Acute (3) DM (diabetes mellitus) ICD Code: E11.9 Status: Acute Assessment and Plan 75-year-old female admitted for observation from the med/psych unit. The patient was found to have an episode of hypotension. She was being treated for adjustment disorder, lower extremity cellulitis. Hypotension: Likely secondary to medication and fluid restriction. Patient received Seroquel and lisinopril around 9 PM. She was given 500 cc of IV fluid. Her blood pressure since come up and normalized. No further episodes of hypotension. - Reduce lisinopril to 20 mg daily instead of twice a day. - Continue atenolol and Lasix. - Decrease Seroquel to 25 mg twice a day. Adjustment disorder: Consult psychiatry. Left lower extremity cellulitis -resolving. Continue PO Keflex and doxycycline HTN -see above. Continue to monitor closely Diabetes mellitus. - Levemir 10 units Q HS - Monitor accuchecks Question atrial fibrillation history of cardiac arrhythmia requiring pacemaker on Pradaxa at home Will continue Pradaxa DVT prophylaxis Pradaxa Discharge Planning Discussed with RN. Arrangements were made for the patient with discharged today to rehabilitation. She is clear for discharge. Discharge in good condition Activity: Regular as tolerated. Per PT instructions. Diet: Diabetic Follow-up: With PCP in psychiatry Meds: Per med rec. Digna Urias MD May 13, 2016 09:31
[2016-05-13] MEDS ORDERED: LORA-392 PO (09:37)
[2016-05-13] MEDS ORDERED: CEPH500C PO (09:37)
[2016-05-13] MEDS ORDERED: HYDR-3516 PO (09:37)
[2016-05-13] MEDS ORDERED: QUET1TAB7 PO (09:37)
[2016-05-13] MEDS ORDERED: DOXY100C PO (09:37)
[2016-05-13] MEDS: LORazepam 0.5 MG TAB PO PRN (11:27)
[2016-05-13] MEDS ORDERED: LIPI20TA PO (15:16)
--- NOTE | 2016-05-13 19:25 | EKG ---
Date Performed: 05/13/2016 Time Performed: 00:20:34 PTAGE: 75 years EKG: SUPRAVENTRICULAR RHYTHM LOW QRS VOLTAGE ABNORMAL ECG PREVIOUS TRACING : 05/12/2016 01.14 DOCTOR: Allen Cope Interpretating Date/Time 05/13/2016 19:21:21
== END 2016-05-13 17:20 | disposition home or self-care (01) ==
LOC: NEPGCP 09:35
PROVIDERS: ADMIT Family Medicine; ATTEND Family Medicine
DX: I95.9 Hypotension, unspecified (principal); F43.23 Adjustment disorder with mixed anxiety and depressed mood; E11.9 Type 2 diabetes mellitus without complications; L03.116 Cellulitis of left lower limb; A41.9 Sepsis, unspecified organism; I10 Essential (primary) hypertension; R94.31 Abnormal electrocardiogram [ECG] [EKG]; K21.9 Gastro-esophageal reflux disease without esophagitis; Z79.4 Long term (current) use of insulin; Z95.0 Presence of cardiac pacemaker
CPT/HCPCS: 80048; 82948; 85025; 93005; 97110; 97116; 97162; G0378; J1815; J2405

== ENCOUNTER 2017-08-02 23:22 | Observation (INO) | payer MEDICARE, OTHER ==
[~2017-08-02] VITALS: Ht 170.2 cm; Wt 81.8 kg
[~2017-08-02 23:22] MED LIST changes: +ASPI1TAB93 PO; +BENA25CA4 PO; +CEPH500C PO; +CHOL5000 PO; -CLIN1CAP5 PO; -CLON0.5T PO; +CYMB30CA PO; +DIFL200T PO; +DOXY100C PO; +FAMO20TA2 PO; -FENT25DI T-DERMAL; +FERR325T18 PO; -HYDR-3516 PO; -HYDR-3649; +LORA-474 PO; -NEUR300C PO; +NOVOLOGP2 SQ; +PERC10TA27 PO; +QUET1TAB7 PO; +REME15TA PO; -TRAZ50TA12 PO; +TYLE325T PO; +VITA500T83 PO
[2017-08-02 23:25] VITALS: BP 119/55; PULSE 61; RESP 20; TEMP 98.7
[2017-08-02 23:45] VITALS: O2SAT 97
[2017-08-02] MEDS ORDERED: ACETAMINOPHEN/HYDROcodone 325 MG/5 MG TAB PO ONE (23:45)
[2017-08-02] MEDS ORDERED: SODIUM CHLORIDE 0.9% FLUSH 10 ML FLUSH IVF PRN (23:45)
[2017-08-02 23:48] LABS: AUTOMATED NEUTROPHIL # 4.9 TH/MM3 (1.8-7.7); BASOPHIL # 0.1 TH/MM3 (0-0.2); BASOPHIL % 0.7 % (0.0-2.0); EOSINOPHIL # 0.8 TH/MM3 (0-0.4); HEMATOCRIT 31.3 % (35.0-46.0); HEMOGLOBIN 10.6 GM/DL (11.6-15.3); LYMPH % 32.6 % (9.0-44.0); LYMPHOCYTE # 3.1 TH/MM3 (1.0-4.8); MEAN CORPUSCULAR HEMOGLOBIN 29.4 PG (27.0-34.0); MEAN CORPUSCULAR HGB CONC 33.8 % (32.0-36.0); MEAN PLATELET VOLUME 7.6 FL (7.0-11.0); MONO % 7.1 % (0.0-8.0); MONOCYTE # 0.7 TH/MM3 (0-0.9); NEUT % 51.6 % (16.0-70.0); PLATELET COUNT 346 TH/MM3 (150-450); RED CELL DISTRIBUTION WIDTH 14.2 % (11.6-17.2); WHITE BLOOD COUNT 9.5 TH/MM3 (4.0-11.0)
--- NOTE | 2017-08-02 23:58 | RADRPT ---
EXAM DATE/TIME: 08/02/2017 23:36 [facility] COMPARISON: CHEST SINGLE AP, May 05, 2016, 15:34. INDICATIONS : Chest pain. MEDICAL HISTORY : Hypertension. Diabetes mellitus type II. SURGICAL HISTORY : Pacemaker. ENCOUNTER: Initial ACUITY: 1 day PAIN SCORE: 9/10 LOCATION: Bilateral chest FINDINGS: Single AP view of the chest. Lung volumes are low. Mild lower lung zone atelectasis bilaterally. Cent ral pulmonary vasculature prominence. No bimal pulmonary edema. No evidence of pleural effusion or pn eumothorax. Cardiac silhouette within normal limits. CONCLUSION: Central pulmonary vascular congestion without bimal pulmonary edema. Quincy Espinoza MD on August 02, 2017 at 23:54 Board Certified Radiologist. This report was verified electronically.
[2017-08-03] VITALS (7 sets, daily range): BP systolic 98–139; BP diastolic 49–63; PULSE 60–62; RESP 16–18; TEMP 96.8–97.6; O2SAT 97–99
[2017-08-03 00:01] LABS: PROTHROMBIN TIME - PATIENT 10.3 SEC (9.8-11.6)
[2017-08-03 00:45] LABS: AST (GOT) 14 U/L (15-37); BICARBONATE 27.5 MEQ/L (21.0-32.0); BLOOD UREA NITROGEN 23 MG/DL (7-18); CALCIUM 8.7 MG/DL (8.5-10.1); CHLORIDE 105 MEQ/L (98-107); CREATININE 0.74 MG/DL (0.50-1.00); GLOMERULAR FILTRATION RATE 77 ML/MIN (>89); GLUCOSE,RANDOM 123 MG/DL (74-106); SODIUM (NA) 139 MEQ/L (136-145)
[2017-08-03 00:49] LABS: ALKALINE PHOSPHATASE 101 U/L (45-117); ALT (GPT) 17 U/L (10-53); TOTAL BILIRUBIN ADULT 0.2 MG/DL (0.2-1.0); TOTAL PROTEIN 6.4 GM/DL (6.4-8.2); TROPONIN I LESS THAN 0.02 NG/ML (0.02-0.05)
--- NOTE | 2017-08-03 01:42 | PD ---
HPI Chief Complaint: Chest Pain Time Seen by Provider: 23:33 Travel History International Travel<30 days: No Contact w/Intl Traveler<30days: No Traveled to known affect area: No History of Present Illness HPI Patient is a 76-year-old female who comes in complaining of chest pain. She says she has had pain for a month, but tonight it got much worse, so she asked to come here. She says the pain is in the right side of her chest and radiates down her arm. She denies any difficulty breathing. She denies cough or cold symptoms. She denies nausea or vomiting. She says she has not taken anything for the pain. Severity is mild to moderate. PFSH Past Medical History Arthritis: Yes Asthma: Yes Blood Disorders: No Anxiety: Yes Depression: Yes Heart Rhythm Problems: No Cancer: No Cardiovascular Problems: Yes High Cholesterol: Yes Chest Pain: No Congestive Heart Failure: Yes COPD: No Diabetes: Yes Patient Takes Glucophage: No Endocrine: Yes GERD: Yes Genitourinary: Yes (arrived with reyes) Headaches: No Hypertension: Yes Immune Disorder: No Musculoskeletal: Yes (LEFT FOOT CUBB) Neurologic: No Psychiatric: Yes (2014) Reproductive: No Respiratory: Yes Migraines: Yes Seizures: No Sleep Apnea: No Thyroid Disease: No Tetanus Vaccination: Unknown Past Surgical History Body Medical Devices: PACEMAKER Cardiac Surgery: Yes Cholecystectomy: Yes Pacemaker: Yes Other Surgery: Yes (finger tip amputation) Social History Alcohol Use: No Tobacco Use: No (former smoker) Substance Use: No Allergies-Medications (Allergen,Severity, Reaction): Coded Allergies: morphine (Unverified Allergy, Intermediate, 02/19/17) penicillin G (Unverified Allergy, Intermediate, HIVES, 02/19/17) Reported Meds & Prescriptions Reported Meds & Active Scripts Active Lipitor (Atorvastatin Calcium) 20 Mg Tab 20 Mg PO HS Quetiapine (Quetiapine Fumarate) 25 Mg Tab 25 Mg PO BID Doxycycline Hyclate 100 Mg Cap 100 Mg PO BID 4 Days Cephalexin 500 Mg Cap 500 Mg PO Q8HR 4 Days Pantoprazole (Pantoprazole Sodium) 40 Mg Tab 40 Mg PO DAILY Isosorbide Mononitrate ER (Isosorbide Mononitrate) 30 Mg Daja 30 Mg PO DAILY Levemir Inj (Insulin Detemir) 1,000 unit/ 10 ML Vial 30 Units SQ HS Furosemide 20 Mg Tab 20 Mg PO DAILY Atenolol 25 Mg Tab 25 Mg PO DAILY Reported Tylenol (Acetaminophen) 325 Mg Tab 325 Mg PO Q4H PRN Percocet (Oxycodone-Acetaminophen) 10-325 mg Tab 1 Tab PO Q4H PRN Vitamin C ER (Ascorbic Acid) 500 Mg Daja 500 Mg PO DAILY Vitamin D3 (Cholecalciferol) 5,000 Unit Cap 5,000 Units PO DAILY Famotidine 20 Mg Tab 20 Mg PO HS Ferrous Sulfate 325 Mg (65 Mg Iron) Tablet 325 Mg PO BIDPC Excedrin Extra Strength (Zgjwyyy-Fkgdbksevzfqn-Fbtqfkjv) 250 Mg-250 Mg-65 Mg Tab 250 Mg PO DIRECTED Benadryl Allergy (Diphenhydramine HCl) 25 Mg Cap 25 Mg PO Q6HR Gabapentin 600 Mg Tab 600 Mg PO TID Novolog Inj (Insulin Aspart) 1,000 Unit/10 Ml Vial 0 SQ DIRECTED Sliding Scale as directed. Pradaxa (Dabigatran) 150 Mg Cap 150 Mg PO BID Ativan (Lorazepam) 1 Mg Tab 1 Mg PO Q6H PRN Diflucan (Fluconazole) 200 Mg Tab 200 Mg PO DAILY Remeron (Mirtazapine) 15 Mg Tab 15 Mg PO HS Cymbalta DR (Duloxetine HCl) 30 Mg Capdr 30 Mg PO DAILY Humalog Kwikpen Pen Inj (Insulin Lispro (Human) Inj) 300 Unit/3 Ml Pen 10 Units SQ DIRECTED Escitalopram (Escitalopram Oxalate) 10 Mg Tab 10 Mg PO DAILY Lisinopril 20 Mg Tab 5 Mg PO DAILY Sertraline (Sertraline HCl) 100 Mg Tab 100 Mg PO DAILY Review of Systems Except as stated in HPI: all other systems reviewed are Neg General / Constitutional: No: Fever, Chills HENT: No: Headaches, Lightheadedness Cardiovascular: Positive: Chest Pain or Discomfort Respiratory: No: Shortness of Breath Gastrointestinal: No: Nausea, Vomiting Genitourinary: No: Dysuria Musculoskeletal: No: Myalgias Skin: No Rash, No Change in Pigmentation Neurologic: No: Weakness, Dizziness Physical Exam Narrative GENERAL: Awake and alert, in no acute distress. SKIN: Focused skin assessment warm/dry. HEAD: Atraumatic. Normocephalic. EYES: Pupils equal and round. No scleral icterus. EOMI. ENT: Mucous membranes pink and moist. NECK: Trachea midline. No JVD. CARDIOVASCULAR: Regular rate and rhythm. No murmur appreciated. RESPIRATORY: No accessory muscle use. Clear to auscultation. Breath sounds equal bilaterally. GASTROINTESTINAL: Abdomen soft, non-tender, nondistended. Hepatic and splenic margins not palpable. MUSCULOSKELETAL: No obvious deformities. No clubbing. No cyanosis. No edema. NEUROLOGICAL: Awake and alert. No obvious cranial nerve deficits. Motor grossly within normal limits. Normal speech. PSYCHIATRIC: Appropriate mood and affect; insight and judgment normal. Data Data Last Documented VS Vital Signs Date Time Temp Pulse Resp B/P (MAP) Pulse Ox O2 Delivery O2 Flow Rate FiO2 08/03/17 00:00 60 18 98/49 (65) 97 Room Air 99/50 (66) 08/02/17 23:25 98.7 Orders Orders Electrocardiogram (08/02/17 23:33) Ckmb (Isoenzyme) Profile (08/02/17 23:33) Complete Blood Count With Diff (08/02/17 23:33) Comprehensive Metabolic Panel (08/02/17 23:33) Prothrombin Time / Inr (Pt) (08/02/17 23:33) Act Partial Throm Time (Ptt) (08/02/17 23:33) Troponin I (08/02/17 23:33) Chest, Single Ap (08/02/17 23:33) Ecg Monitoring (08/02/17 23:33) Bilateral Bp Monitoring (08/02/17 23:33) Iv Access Insert/Monitor (08/02/17 23:33) Oximetry (08/02/17 23:33) Sodium Chloride 0.9% Flush (Ns Flush) (08/02/17 23:45) Lipase (08/02/17 23:33) Acetamin-Hydrocod 325-5 Mg (Weiner 5-325 (08/02/17 23:45) Activity Bed Rest With Brp (08/03/17 01:40) Vital Signs (Adult) Q4H (08/03/17 01:40) Cardiac Rhythm .As Directed (08/03/17 01:40) Notify Dr: Other .PRN (08/03/17 01:40) Notify . Parameters (08/03/17 01:40) Resp Oxygen Nasal Cannula (08/03/17 ) Diet Heart Healthy (08/03/17 Breakfast) Ckmb (Isoenzyme) Profile (08/03/17 02:39) Ckmb (Isoenzyme) Profile (08/03/17 05:39) Troponin I (08/03/17 02:39) Troponin I (08/03/17 05:39) Electrocardiogram (08/03/17 02:39) Electrocardiogram (08/03/17 05:39) ^ Obtain (08/03/17 01:40) Sodium Chloride 0.9% Flush (Ns Flush) (08/03/17 01:45) Sodium Chloride 0.9% Flush (Ns Flush) (08/03/17 09:00) Acetaminophen (Tylenol) (08/03/17 01:45) Acetamin-Hydrocod 325-7.5 Mg (Weiner 7.5 (08/03/17 01:45) Bankruptcy Manager / Telemetry MAR.Q8H (08/03/17 01:40) Admit Order (Ed Use Only) (08/03/17 ) Labs Laboratory Tests Test 08/02/17 23:39 White Blood Count 9.5 TH/MM3 Red Blood Count 3.60 MIL/MM3 Hemoglobin 10.6 GM/DL Hematocrit 31.3 % Mean Corpuscular Volume 87.0 FL Mean Corpuscular Hemoglobin 29.4 PG Mean Corpuscular Hemoglobin Concent 33.8 % Red Cell Distribution Width 14.2 % Platelet Count 346 TH/MM3 Mean Platelet Volume 7.6 FL Neutrophils (%) (Auto) 51.6 % Lymphocytes (%) (Auto) 32.6 % Monocytes (%) (Auto) 7.1 % Eosinophils (%) (Auto) 8.0 % Basophils (%) (Auto) 0.7 % Neutrophils # (Auto) 4.9 TH/MM3 Lymphocytes # (Auto) 3.1 TH/MM3 Monocytes # (Auto) 0.7 TH/MM3 Eosinophils # (Auto) 0.8 TH/MM3 Basophils # (Auto) 0.1 TH/MM3 CBC Comment DIFF FINAL Differential Comment Prothrombin Time 10.3 SEC Prothromb Time International Ratio 1.0 RATIO Activated Partial Thromboplast Time 26.7 SEC Blood Urea Nitrogen 23 MG/DL Creatinine 0.74 MG/DL Random Glucose 123 MG/DL Total Protein 6.4 GM/DL Albumin 3.0 GM/DL Calcium Level 8.7 MG/DL Alkaline Phosphatase 101 U/L Aspartate Amino Transf (AST/SGOT) 14 U/L Alanine Aminotransferase (ALT/SGPT) 17 U/L Total Bilirubin 0.2 MG/DL Sodium Level 139 MEQ/L Potassium Level 4.4 MEQ/L Chloride Level 105 MEQ/L Carbon Dioxide Level 27.5 MEQ/L Anion Gap 7 MEQ/L Estimat Glomerular Filtration Rate 77 ML/MIN Total Creatine Kinase 69 U/L Troponin I LESS THAN 0.02 NG/ML Lipase 44 U/L MDM Medical Decision Making Medical Screen Exam Complete: Yes Emergency Medical Condition: Yes Medical Record Reviewed: Yes Interpretation(s) ECG shows a paced rhythm, no ST elevation or depression Differential Diagnosis ACS versus an STEMI versus STEMI Narrative Course Patient is a 76-year-old female comes in complaining of chest pain. Exam shows no acute abnormalities. IV established, labs sent, patient connected to the media monitor. Patient was given aspirin at the shelter. Given pain medicine here. Labs show no acute abnormalities. Chest x-ray shows no acute abnormalities. Patient placed in observation for further management of chest pain. Diagnosis Primary Impression: Chest pain Qualified Codes: R07.9 - Chest pain, unspecified Admitting Information Admitting Physician Requests: Observation Nikki Christianson MD Aug 03, 2017 01:42
[2017-08-03] MEDS ORDERED: ACETAMINOPHEN 500 MG CPLT PO PRN (01:45)
[2017-08-03] MEDS ORDERED: ACETAMINOPHEN/HYDROcodone 325 MG/7.5 MG TAB PO PRN (01:45)
[2017-08-03] MEDS ORDERED: SODIUM CHLORIDE 0.9% FLUSH 10 ML FLUSH IV FLUSH PRN (01:45)
[2017-08-03 02:59] LABS: TROPONIN I LESS THAN 0.02 NG/ML (0.02-0.05)
[2017-08-03 07:25] LABS: TROPONIN I LESS THAN 0.02 NG/ML (0.02-0.05)
[2017-08-03] MEDS ORDERED: NITROGLYCERIN 0.4 MG SL 25 TABS/BTL SL PRN (08:00)
[2017-08-03] MEDS ORDERED: ONDANSETRON HCL 4 MG/2 ML VIAL IV PUSH PRN (08:00)
--- NOTE | 2017-08-03 08:19 | HHI.HP ---
HPI Primary Care Physician Unknown-PCP in Rehab Chief Complaint Chest pain History of Present Illness 76 year female with history of type II diabetes, hypertension, hyperlipidemia and pacemaker presents to ER for further evaluation of chest pain. Onset "over 1 month." Location right anterior chest with radiation to right shoulder. Characterized gradual pressure. Associated symptoms, nausea, dyspnea, and diaphoresis. Duration 1-2 hours. Unable to recall frequency of episodes. While in bed last evening, developed a severe episode of chest discomfort. [facility] at [facility], were she is living. Hurts to take a deep breath and moving right arm make pain worse when episodes occur. No recent illness, fever, cough. Currently reports being chest pain free, however during exam chest pain is easily reproduced. Endorses right sided intermittent discomfort for at least one year and feels current symptoms are related. Review of Systems General: No fatigue,weakness, fever, chills, or recent illness. Has been in her general state of health. Recently placed in rehab nursing facility. Tells me she is immobile, requiring Akira lift to assist her to wheelchair. Reports being happy at rehab, which is different from when she first arrived.In fact, tearful at thought of having to remain in hospital for further testing. HEENT: No HINKLE, no vision changes, no nasal congestion or drainage CV: As stated above. No palpitations or dizziness. History of pace maker placement reportedly due to syncopal episode. RESP: No SOB, cough, wheeze, or recent upper respiratory infection GI: No nausea, vomiting, bowel changes. History of chronic constipation. : No dysuria, urgency, or frequency. [facility]rived from jail with urinary catheter, unclear the need of catheter. 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 MS: No discomfort, injury, trauma. Wheelchair bound and is a total assist jail. NEURO: No change in memory, LOC, motor/sensory deficits PSYCH: History of depression, reports depression improving with medications and getting used to nursing facility. No suicidal ideation. Tells me niece unable to care for her due to her immobility and recently moved to Rehab nursing facility. Reporting being "happy" there but "I get sad because I can't get around by myself." SKIN: No rashes, no concerning lesions Past Family Social History Allergies: Coded Allergies: morphine (Unverified Allergy, Intermediate, 02/19/17) penicillin G (Unverified Allergy, Intermediate, HIVES, 02/19/17) Past Medical History Type II diabetes (insulin dependent), hypertension, depression, GERD, migraines , Pace maker, asthma, hyperlipidemia Past Surgical History Left below knee amputation, pace maker placement, cholecystectomy, right index finger tip amputation Reported Medications Reported Meds & Active Scripts Active (RN to compare current list with jail list due to multiple discrepancies) Lipitor (Atorvastatin Calcium) 20 Mg Tab 20 Mg PO HS Quetiapine (Quetiapine Fumarate) 25 Mg Tab 25 Mg PO BID Doxycycline Hyclate 100 Mg Cap 100 Mg PO BID 4 Days Cephalexin 500 Mg Cap 500 Mg PO Q8HR 4 Days Pantoprazole (Pantoprazole Sodium) 40 Mg Tab 40 Mg PO DAILY Isosorbide Mononitrate ER (Isosorbide Mononitrate) 30 Mg Daja 30 Mg PO DAILY Levemir Inj (Insulin Detemir) 1,000 unit/ 10 ML Vial 30 Units SQ HS Furosemide 20 Mg Tab 20 Mg PO DAILY Atenolol 25 Mg Tab 25 Mg PO DAILY Tylenol (Acetaminophen) 325 Mg Tab 325 Mg PO Q4H PRN Percocet (Oxycodone-Acetaminophen) 10-325 mg Tab 1 Tab PO Q4H PRN Vitamin C ER (Ascorbic Acid) 500 Mg Daja 500 Mg PO DAILY Vitamin D3 (Cholecalciferol) 5,000 Unit Cap 5,000 Units PO DAILY Famotidine 20 Mg Tab 20 Mg PO HS Ferrous Sulfate 325 Mg (65 Mg Iron) Tablet 325 Mg PO BIDPC Excedrin Extra Strength (Xymnlpx-Ehuywavpfkkpt-Dfpbkjhs) 250 Mg-250 Mg-65 Mg Tab 250 Mg PO DIRECTED Benadryl Allergy (Diphenhydramine HCl) 25 Mg Cap 25 Mg PO Q6HR Gabapentin 600 Mg Tab 600 Mg PO TID Novolog Inj (Insulin Aspart) 1,000 Unit/10 Ml Vial 0 SQ DIRECTED Sliding Scale as directed. Pradaxa (Dabigatran) 150 Mg Cap 150 Mg PO BID Ativan (Lorazepam) 1 Mg Tab 1 Mg PO Q6H PRN Diflucan (Fluconazole) 200 Mg Tab 200 Mg PO DAILY Remeron (Mirtazapine) 15 Mg Tab 15 Mg PO HS Cymbalta DR (Duloxetine HCl) 30 Mg Capdr 30 Mg PO DAILY Humalog Kwikpen Pen Inj (Insulin Lispro (Human) Inj) 300 Unit/3 Ml Pen 10 Units SQ DIRECTED Escitalopram (Escitalopram Oxalate) 10 Mg Tab 10 Mg PO DAILY Lisinopril 20 Mg Tab 5 Mg PO DAILY Sertraline (Sertraline HCl) 100 Mg Tab 100 Mg PO DAILY Active Ordered Medications Current Medications Medications (Trade) Dose Ordered Sig/Meghan Route Start Time Stop Time Status Last Admin (NS Flush) 2 ml UNSCH PRN IVF 08/02/17 23:45 (NS Flush) 2 ml UNSCH PRN IV FLUSH 08/03/17 01:45 (NS Flush) 2 ml BID IV FLUSH 08/03/17 09:00 (Tylenol) 500 mg Q4H PRN PO 08/03/17 01:45 (Warrior 7.5-325 Mg) 1 tab Q4H PRN PO 08/03/17 01:45 (Zofran Inj) 4 mg Q6H PRN IV PUSH 08/03/17 08:00 (Nitrostat Sl) 0.4 mg Q5M PRN SL 08/03/17 08:00 (Aspirin) 325 mg DAILY PO 08/03/17 09:00 Family History Noncontributory for early onset cardiovascular disease. Social History Known diabetes, hypertension, and hyperlipidemia. No known CAD. Remote smoker. Denies any alcohol use. Single. Lives in Rehab Facility. Wheelchair bound, required Akira lift, and is a total assistance. Past cardiac testing No recent or past cardiac testing found in medical records. RN called nursing facility to determine who is patient's geometry tutor and any recent cardiac testing results they may have. Unfortunately, no records identified and her geometry tutor was not identified. Reports that he had a catheterization many years ago, reported to be normal. Cannot recall where cardiac catheterization was completed who performed the procedure. Physical Exam Vital Signs Vital Signs Date Time Temp Pulse Resp B/P (MAP) Pulse Ox O2 Delivery O2 Flow Rate FiO2 08/03/17 03:31 97.4 60 16 98/51 (67) 97 08/03/17 00:00 60 18 98/49 (65) 97 Room Air 99/50 (66) 08/02/17 23:45 97 Room Air 08/02/17 23:25 98.7 61 20 119/55 (76) Physical Exam GENERAL: Alert WN, WD, NAD, morbidity obese, , elderly female HEAD: NC, AT EYES: Sclera clear, conjunctiva without injection ENT: Mucous membranes pink and moist NECK: Supple, no masses, trachea midline CV: RRR, without murmur, rub, gallop, no JVD, S1-S2 no S3-S4. No carotid or femoral bruits. RESP: Bilateral faint crackles, otherwise clear throughout. No wheeze or rhonchi. symmetrical chest rise, nonlabored, able to speak in full sentences ABD: Soft, NT, ND, positive bowel tones EXT: Pulses +2 Right DP, PT, +2 Left popiteal pulse. No edema. Right index finger amputation. MS: Normal tone x4 extremities, Right shoulder and right anterior chest pain reproduced with palpation. Left BKA, full range of motion, difficult to move self in bed possibly from body habitus and deconditioned weakness. NEURO: CN II through CN XII grossly intact, motor strength 5/5 PSYCH: A+O x3, flat affect, tearful at times, appropriate speech, mood, insight and judgment. SKIN: Normal turgor, normal texture, no lesions, no rashes Laboratory Laboratory Tests Test 08/02/17 23:39 08/03/17 02:05 08/03/17 05:45 White Blood Count 9.5 Red Blood Count 3.60 Hemoglobin 10.6 Hematocrit 31.3 Mean Corpuscular Volume 87.0 Mean Corpuscular Hemoglobin 29.4 Mean Corpuscular Hemoglobin Concent 33.8 Red Cell Distribution Width 14.2 Platelet Count 346 Mean Platelet Volume 7.6 Neutrophils (%) (Auto) 51.6 Lymphocytes (%) (Auto) 32.6 Monocytes (%) (Auto) 7.1 Eosinophils (%) (Auto) 8.0 Basophils (%) (Auto) 0.7 Neutrophils # (Auto) 4.9 Lymphocytes # (Auto) 3.1 Monocytes # (Auto) 0.7 Eosinophils # (Auto) 0.8 Basophils # (Auto) 0.1 CBC Comment DIFF FINAL Differential Comment Prothrombin Time 10.3 Prothromb Time International Ratio 1.0 Activated Partial Thromboplast Time 26.7 Blood Urea Nitrogen 23 Creatinine 0.74 Random Glucose 123 Total Protein 6.4 Albumin 3.0 Calcium Level 8.7 Alkaline Phosphatase 101 Aspartate Amino Transf (AST/SGOT) 14 Alanine Aminotransferase (ALT/SGPT) 17 Total Bilirubin 0.2 Sodium Level 139 Potassium Level 4.4 Chloride Level 105 Carbon Dioxide Level 27.5 Anion Gap 7 Estimat Glomerular Filtration Rate 77 Total Creatine Kinase 69 60 50 Troponin I LESS THAN 0.02 LESS THAN 0.02 LESS THAN 0.02 Lipase 44 Result Diagram: 08/02/17233808/02/172338 Imaging Last 48 hours Impressions Chest X-Ray 08/02/172332 Signed Impressions: Service Date/Time: Wednesday, August 02, 2017 23:36 - CONCLUSION: Central pulmonary vascular congestion without bimal pulmonary edema. Quincy Espinoza MD Course EKG Atrial paced, no ST segment changes Caprini VTE Risk Assessment Caprini VTE Risk Assessment: Mod/High Risk (score >= 2) Caprini Risk Assessment Model Point Value = 1 Point Value = 2 Point Value = 3 Point Value = 5 Age 41-60 Minor surgery BMI > 25 kg/m2 Swollen legs Varicose veins or History of unexplained or recurrent spontaneous Oral contraceptives or hormone replacement Sepsis (< 1 month) Serious lung disease, including pneumonia (< 1 month) Abnormal pulmonary function Acute myocardial infarction Congestive heart failure (< 1 month) History of inflammatory bowel disease Medical patient at bed rest Age 61-74 Arthroscopic surgery Major open surgery (> 45 min) Laparoscopic surgery (> 45 min) Malignancy Confined to bed (> 72 hours) Immobilizing plaster cast Central venous access Age >= 75 History of VTE Family history of VTE Factor V Leiden Prothrombin [id number] Lupus anticoagulant Anticardiolipin antibodies Elevated serum homocysteine Heparin-induced thrombocytopenia Other congenital or acquired thrombophilia Stroke (< 1 month) Elective arthroplasty Hip, pelvis, or leg fracture Acute spinal cord injury (< 1 month) Prophylaxis Regimen Total Risk Factor Score Risk Level Prophylaxis Regimen 0-1 Low Early ambulation 2 Moderate Order ONE of the following: *Sequential Compression Device (SCD) *Heparin 5000 units SQ BID 3-4 Higher Order ONE of the following medications: *Heparin 5000 units SQ TID *Enoxaparin/Lovenox 40 mg SQ daily (WT < 150 kg, CrCl > 30 mL/min) *Enoxaparin/Lovenox 30 mg SQ daily (WT < 150 kg, CrCl > 10-29 mL/min) *Enoxaparin/Lovenox 30 mg SQ BID (WT < 150 kg, CrCl > 30 mL/min) AND/OR *Sequential Compression Device (SCD) 5 or more Highest Order ONE of the following medications: *Heparin 5000 units SQ TID (Preferred with Epidurals) *Enoxaparin/Lovenox 40 mg SQ daily (WT < 150 kg, CrCl > 30 mL/min) *Enoxaparin/Lovenox 30 mg SQ daily (WT < 150 kg, CrCl > 10-29 mL/min) *Enoxaparin/Lovenox 30 mg SQ BID (WT < 150 kg, CrCl > 30 mL/min) AND *Sequential Compression Device (SCD) Assessment and Plan Assessment and Plan #1 Atypical chest pain-admitted to chest pain center. Ruled out with 3 sets of EKGs, cardiac enzymes, and monitored on telemetry overnight. Seen and evaluated by Dr. Mal Mtz who recommends proceeding with chemical stress testing. Patient indecisive on completing testing stating she doesn't want to be in the hospital any longer. #2 History of type II diabetes-SSI low dose coverage, hold home diabetic regimen at this time All other home medications will be reordered as appropriate, once RN updated EMAR. Ivana Umanzor Aug 03, 2017 08:19
[2017-08-03] MEDS ORDERED: ASPIRIN 325 MG TAB PO SCH (09:00)
[2017-08-03] MEDS ORDERED: SODIUM CHLORIDE 0.9% FLUSH 10 ML FLUSH IV FLUSH SCH (09:00)
[2017-08-03] MEDS ORDERED: REME30TA PO (09:50)
[2017-08-03] MEDS ORDERED: CLON.5 PO (09:53)
[2017-08-03] MEDS ORDERED: ASPI-516 CHEW (09:58)
[2017-08-03] MEDS ORDERED: LEVEMIR SQ (10:02)
[2017-08-03] MEDS ORDERED: COLA100C5 PO (10:08)
[2017-08-03] MEDS ORDERED: MIRA3350 PO (10:25)
[2017-08-03] MEDS ORDERED: REGADENOSON INJ 0.4 MG/5 ML SYR ONE (14:11)
[2017-08-03] MEDS ORDERED: GLUCAGON 1 MG/ML VIAL OTHER PRN (14:30)
[2017-08-03] MEDS ORDERED: DEXTROSE 50% IN WATER 50 ML VIAL(D50) IV PUSH PRN (14:30)
--- NOTE | 2017-08-03 16:28 | RADRPT ---
EXAM DATE/TIME: 08/03/2017 13:53 [facility] COMPARISON: No previous studies available for comparison. INDICATIONS : Chest pain. Angina. Congestive heart failure. DOSE: 26.5 mCi Tc99m Myoview at stress. 8.7 mCi Tc99m Myoview at rest. 0.4 mg Lexiscan STRESS SYMPTOMS: Tired feeling. EJECTION FRACTION: > 70% MEDICAL HISTORY : Congestive hearrt failure. Hypertension. Diabetes mellitus type 2. SURGICAL HISTORY : Pacemaker. Cholecystectomy. ENCOUNTER: Initial ACUITY: 1 day PAIN SCALE: 3/10 LOCATION: chest TECHNIQUE: The patient underwent pharmacologic stress with infusion of prescribed dose. Continuous ECG tracing was monitored during stress. Gated SPECT imaging was performed after stress and conventional SPECT i maging was performed at rest. The examination was performed on a SPECT/CT scanner, both attenuation and non-corrected datasets were reviewed. FINDINGS: DISTRIBUTION: The maximum perfused segment at stress is in the anterior wall. PERFUSION STUDY: The pattern of perfusion at stress is within normal limits. GATED STUDY: There is intact wall motion and thickening without hypokinetic or dyskinetic segments. CONCLUSION: 1. No significant reversibility to suggest ischemia. 2. Normal wall motion and ejection fraction of greater than 70%. RISK CATEGORY: Low (<1% Annual Mortality Rate) Jean Claude Yip MD on August 03, 2017 at 16:19 Board Certified Radiologist. This report was verified electronically.
--- NOTE | 2017-08-03 16:40 | TR ---
Date Performed: 08/03/2017 Time Performed: 14:22:18 DOCTOR: Mal Mtz DRUG LIST: CLINICAL HISTORY: ANGINA REASON FOR TEST: Angina REASON FOR ENDING: OBSERVATION: CONCLUSION: Lexiscan stress test was performed under standard four minute protocol. Radionuclid e was injected one minute prior to ending the test. No electrocardiographic abormalities were present to suggest ischemia. Nuclear imaging and interpretation are pending. COMMENTS: Lexiscan stress test was performed under standard four minute protocol. Radionuclide was injected one minute prior to ending the test. No electrocardiographic abormalities were present t o suggest ischemia. Nuclear imaging and interpretation are pending.
--- NOTE | 2017-08-03 16:42 | EKG ---
Date Performed: 08/03/2017 Time Performed: 05:14:51 PTAGE: 76 years EKG: ELECTRONIC ATRIAL PACEMAKER LOW QRS VOLTAGE IN EXTREMITY LEADS ABNORMAL RHYTHM ECG PREVIOUS TRACING : 08/03/2017 02.14 Since previous tracing, no significant change noted DOCTOR: Mal Mtz Interpretating Date/Time 08/03/2017 16:42:10
--- NOTE | 2017-08-03 16:43 | EKG ---
Date Performed: 08/03/2017 Time Performed: 02:14:52 PTAGE: 76 years EKG: ELECTRONIC ATRIAL PACEMAKER LOW QRS VOLTAGE IN EXTREMITY LEADS ABNORMAL RHYTHM ECG PREVIOUS TRACING : 05/13/2016 00.20 Since previous tracing, no significant change noted DOCTOR: Mal Mtz Interpretating Date/Time 08/03/2017 16:42:48
[2017-08-03] MEDS ORDERED: FUROSEMIDE 20 MG TAB PO SCH (16:45)
[2017-08-03] MEDS ORDERED: ISOSORBIDE MONONITRATE 30 MG CR TAB (IMDUR) PO SCH (16:45)
[2017-08-03] MEDS ORDERED: FAMOTIDINE 20 MG TAB PO SCH (16:45)
[2017-08-03] MEDS ORDERED: POLYETHYLENE GLYCOL 17 GM PKG PO SCH (16:45)
[2017-08-03] MEDS ORDERED: ATENOLOL 25 MG TAB PO SCH (16:45)
--- NOTE | 2017-08-03 16:47 | EKG ---
Date Performed: 08/02/2017 Time Performed: 23:27:25 PTAGE: 76 years EKG: ELECTRONIC ATRIAL PACEMAKER LOW QRS VOLTAGE ABNORMAL ECG PREVIOUS TRACING : 07/29/2017 05.32 Compared to previous tracing pacer is new. DOCTOR: Mal Mtz Interpretating Date/Time 08/03/2017 16:45:14
[2017-08-03] MEDS ORDERED: INSULIN ASPART SUPPLEMENTAL SCALE SQ SCH (17:00)
--- NOTE | 2017-08-03 17:10 | HHI.DCPOC ---
Discharge Care Plan Diagnosis: (1) Atypical chest pain Goals to Promote Your Health * To prevent worsening of your condition and complications * To maintain your health at the optimal level Directions to Meet Your Goals Take your medications as prescribed Follow your dietary instruction Follow activity as directed Keep your appointments as scheduled Take your immunizations and boosters as scheduled If your symptoms worsen call your PCP, if no PCP go to Urgent Care Center or Emergency Room Smoking is Dangerous to Your Health. Avoid second hand smoke Call the 24-hour hour crisis hotline for domestic abuse at Ivana Umanzor Aug 03, 2017 17:10
[2017-08-03] MEDS ORDERED: FERROUS SULFATE 325 MG (65 MG ELEMENTAL IRON) TAB PO SCH (18:00)
[2017-08-03] MEDS ORDERED: GABAPENTIN 300 MG CAP PO SCH (18:00)
[2017-08-03] MEDS ORDERED: INSULIN DETEMIR 100 UNITS/ML VIAL SQ SCH (21:00)
[2017-08-03] MEDS ORDERED: DOCUSATE SODIUM 100 MG CAP PO SCH (21:00)
== END 2017-08-03 21:26 | disposition short-term general hospital (02) ==
LOC: NEPC 23:22 → NEDA 08-03 01:42 → NEPFCDU 08-03 03:14
DX: R07.89 Other chest pain (principal); E11.9 Type 2 diabetes mellitus without complications; I11.0 Hypertensive heart disease with heart failure; I50.9 Heart failure, unspecified; E78.5 Hyperlipidemia, unspecified; R11.0 Nausea; Z79.4 Long term (current) use of insulin; J45.909 Unspecified asthma, uncomplicated; K21.9 Gastro-esophageal reflux disease without esophagitis; G43.909 Migraine, unspecified, not intractable, without status migrainosus; Z99.3 Dependence on wheelchair; E78.00 Pure hypercholesterolemia, unspecified
CPT/HCPCS: 71045; 78452; 80053; 82550; 82948; 83690; 84484; 85025; 85610; 85730; 93005; 93017; 96372; 99285; A9502; G0378; J1815; J2785